=== PATIENT | female | born 1955 | race Caucasian/White ===

== ENCOUNTER 2020-08-07 12:12 | Outpatient (REF) | payer MEDICARE, MEDICAID, SELFPAY ==
--- NOTE | 2020-08-07 12:21 | MM_ITS ---
EXAMINATION: MM SCREENING DIGITAL BREAST TOMOSYNTHESIS, BILATERAL CLINICAL INFORMATION: Screening. Asymptomatic. Family history of breast cancer, Mother age 82. Prior outside mammography currently unavailable, facility indeterminate. The lifetime risk of breast cancer based on the Tyrer-Cuzick Model is 10%. COMPARISON: None. TECHNIQUE: Digital breast tomosynthesis is performed in both the craniocaudal and mediolateral oblique views along with computer-aided detection (CAD). Synthesized 2D images are generated from the tomosynthesis. Additional left MLO view is provided. FINDINGS: There are scattered areas of fibroglandular density (ACR BI-RADS breast composition Category b). There are no significant masses, abnormal calcifications, or other abnormalities. There are dermal calcifications overlying the bilateral posterior medial breasts. The axilla and skin contours are unremarkable. MM/MM tomosynthesis screening BI IMPRESSION: No mammographic evidence of malignancy. ASSESSMENT: BI-RADS 2: Benign RECOMMENDATION: Routine annual mammography screening. This patient's information was entered into a reminder system with a target due date for their next mammogram.
== END 2020-08-07 12:13 | disposition home or self-care (01) ==
LOC: HO.MAMMO 12:12
PROVIDERS: PCP Family Medicine; Visit Provider Family Medicine
DX: Z12.31 Encounter for screening mammogram for malignant neoplasm of breast (principal)
CPT/HCPCS: 77063; 77067

== ENCOUNTER 2020-08-09 10:40 | Outpatient (REF) | payer MEDICARE, MEDICAID, SELFPAY ==
--- NOTE | 2020-08-09 | MM_ITS ---
EXAMINATION: BONE DENSITOMETRY CLINICAL INDICATION: Asymptomatic menopausal state. COMPARISON: This is the patient's baseline examination. TECHNIQUE: Using a Expanite DXA System (software version: 13.1) manufactured by [employer], dual-energy x-ray absorptiometry was performed of the lumbar spine and left hip. The images are of good technical quality. Summary results are attached. FINDINGS: AP SPINE L1-L4: BMD 1.089 g/cm2, Z-score 0.5, T-score -0.8, normal. LEFT FEMUR, NECK: BMD 0.931 g/cm2, Z-score 0.5, T-score -0.8, normal. LEFT FEMUR, TOTAL: BMD 1.091 g/cm2, Z-score 1.6, T-score 0.7, normal. IDENTIFIED RISK FACTORS: Menopause. HISTORY OF FRACTURE: None listed. MEDICATIONS: Calcium supplements or multivitamin, vitamin D. MM/XR DEXA axial skeleton IMPRESSION: 1. DIAGNOSIS: Normal bone density based on the lowest T-score value of -0.8 in the femoral neck and lumbar spine applying World Health Organization criteria. 2. 10-YEAR FRACTURE RISK PREDICTION, FRAX: Major osteoporotic fracture (clinical spine, forearm, hip or shoulder) 7.5%. Hip fracture 0.5%. 3. Treatment Recommendations: NOF guidelines recommend consideration for treatment in postmenopausal women and men age 50 and older presenting with the following: -A hip or vertebral (clinical or morphometric) fracture. -T-score less than or equal to -2.5 at the femoral neck or spine after appropriate evaluation to exclude secondary causes. -Low bone mass at the hip or spine and a 10-year fracture probability by FRAX of greater than or equal to 3% for hip fracture or greater than or equal to 20% for major osteoporotic fracture based on the [place] adapted WHO algorithm. 4. Other Recommendations: All treatment decisions require clinical judgment and consideration of individual patient factors, including patient preferences, comorbidities, previous drug use, risk factors not captured in the FRAX model (e.g. frailty, falls, vitamin D deficiency, increased bone turnover, interval significant decline in bone density) and possible under or overestimation of fracture risk by FRAX. FUTURE SCAN RECOMMENDATION: People with diagnosed cases of osteoporosis or at high risk for fracture should have regular bone mineral density tests. For patients eligible for Medicare, routine testing is allowed once every 2 years. The testing frequency can be increased to one year for patients who have rapidly progressing disease, those who are receiving or discontinuing medical therapy to restore bone mass, or have additional risk factors.
== END 2020-08-09 10:41 | disposition home or self-care (01) ==
LOC: HO.MAMMO 10:40
PROVIDERS: PCP Family Medicine; Visit Provider Family Medicine
DX: Z13.820 Encounter for screening for osteoporosis (principal); Z78.0 Asymptomatic menopausal state
CPT/HCPCS: 77080

== ENCOUNTER 2022-03-09 10:54 | Outpatient (REF) | payer MEDICARE, SELFPAY ==
[2022-03-09 14:13] LABS: MANUAL DIFF FLAG NO
[2022-03-09 14:17] LABS: Basophils Percent Auto 0.9 % (0-2); Eosinophils Absolute Auto 0.1 X10*3/uL (0.0-0.4); Eosinophils Percent Auto 2.1 % (0-4); Hematocrit 36.8 % (37.0-47.0); Imm Gran Abs Auto 0.01 X10*3/uL (0.00-0.03); Imm Gran Pct Auto 0.3 % (0.0-0.4); Lymphocytes Absolute Auto 1.3 X10*3/uL (1.2-4.9); Lymphocytes Percent Auto 39.1 % (20-40); Mean Corpuscular HGB Conc 32.6 g/dl (31.0-35.0); Mean Corpuscular Hemoglobin 30.1 pg (27.0-33.0); Mean Corpuscular Volume 92.2 fL (80.0-98.0); Mean Platelet Volume 11.6 fL (9.4-12.3); Monocytes Absolute Auto 0.4 X10*3/uL (0.1-1.2); Monocytes Percent Auto 12.6 % (2-11); Neutrophils Absolute Auto 1.5 x10*3/uL (2.0-8.3); Platelet Count 194 X10*3/uL (160-400); Red Blood Count 3.99 X10*6/uL (4.20-5.50); Red Cell Distribution Width 13.1 % (11.0-16.0); White Blood Count 3.4 X10*3/uL (4.8-10.8)
[2022-03-09 14:28] LABS: Alanine Aminotransferase 22 U/L (0-31); Albumin Level 4.6 g/dL (3.5-5.0); Alkaline Phosphatase 66 U/L (39-117); Anion Gap 12 (12-20); Aspartate Amino Transferase 22 U/L (5-31); Bilirubin Total 0.6 mg/dL (0.0-1.0); Blood Urea Nitrogen 23 mg/dL (9-16); Calcium 9.8 mg/dL (8.4-10.2); Carbon Dioxide 27 mmol/L (22-29); Chloride 104 mmol/L (96-108); Cholesterol 285 mg/dL; Estimated Glomerular Filt Rate > 60; Glucose Fasting 111 mg/dL (60-99); HDL Cholesterol 56 mg/dL; LDL Cholesterol Calculated 201 mg/dl; Potassium 4.7 mmol/L (3.3-5.1); Sodium 138 mmol/L (135-145); Total Protein 7.5 g/dL (6.5-8.0); Triglycerides 142 mg/dL
[2022-03-09 14:30] LABS: Estimated Average Glucose 120 mg/dL; Hemoglobin A1c % 5.8 %
[2022-03-09 14:49] LABS: TSH reflex Free T4 0.89 uIU/mL (0.32-4.0)
[2022-03-09 14:57] LABS: Appearance Urine CLEAR; Color Urine YELLOW; Glucose Urine UA NEG (NEG); Leukocyte Esterase Urine NEG (NEG); Nitrite Urine NEG (NEG); Urine Blood 1+ (NEG); Urine Ketones NEG (NEG); Urine Protein NEG (NEG-TRACE)
[2022-03-09 15:16] LABS: RBC Urine 0-2 /HPF (0); Squamous Epithelial Cell Urine TRACE /LPF; WBC Urine 0 /HPF (0-4)
== END 2022-03-09 10:55 | disposition home or self-care (01) ==
LOC: HO.WFDLDS 10:54
PROVIDERS: Visit Provider Family Medicine
DX: Z00.00 Encounter for general adult medical examination without abnormal findings (principal); R73.01 Impaired fasting glucose
CPT/HCPCS: 36415; 80053; 80061; 81001; 81003; 83036; 84443; 85025

== ENCOUNTER 2022-06-02 14:40 | Outpatient (REF) | payer MEDICARE, SELFPAY ==
--- NOTE | ~2022-06-02 | XR_ITS ---
EXAMINATION: XR ABDOMEN KUB CLINICAL INDICATION: Abdominal pain. COMPARISON: None TECHNIQUE: AP view of the abdomen. FINDINGS: The bowel gas pattern is normal, with no evidence of ileus or obstruction. There is a mild stool burden. No urinary calculus is seen. There are multiple round, lucent centered calcifications seen within the bilateral flank and upper buttock regions, likely soft tissue granulomas. These are of doubtful clinical significance. No acute osseous abnormality is seen. XR/XR KUB IMPRESSION: There is a mild stool burden. No obstruction or ileus is seen. No free intraperitoneal air is noted.
== END 2022-06-02 14:41 | disposition home or self-care (01) ==
LOC: HO.XRAY 14:40
PROVIDERS: PCP Family Medicine; Visit Provider Family Medicine
DX: R10.9 Unspecified abdominal pain (principal)
CPT/HCPCS: 74018

== ENCOUNTER 2022-06-03 09:27 | Outpatient (REF) | payer MEDICARE, SELFPAY ==
[2022-06-03 11:07] LABS: MANUAL DIFF FLAG NO
[2022-06-03 11:31] LABS: Appearance Urine Clear; Color Urine Yellow; Eosinophils Absolute Auto 0.1 X10*3/uL (0.0-0.4); Eosinophils Percent Auto 3.1 % (0-4); Glucose Urine UA Negative (Negative); Hematocrit 35.4 % (37.0-47.0); Hemoglobin 11.6 g/dl (12.0-16.0); Imm Gran Abs Auto 0.01 X10*3/uL (0.00-0.03); Imm Gran Pct Auto 0.3 % (0.0-0.4); Leukocyte Esterase Urine Negative (Negative); Lymphocytes Absolute Auto 1.2 X10*3/uL (1.2-4.9); Lymphocytes Percent Auto 41.8 % (20-40); Mean Corpuscular HGB Conc 32.8 g/dl (31.0-35.0); Mean Corpuscular Hemoglobin 29.6 pg (27.0-33.0); Mean Corpuscular Volume 90.3 fL (80.0-98.0); Mean Platelet Volume 11.2 fL (9.4-12.3); Monocytes Absolute Auto 0.5 X10*3/uL (0.1-1.2); Monocytes Percent Auto 15.8 % (2-11); Neutrophils Absolute Auto 1.1 x10*3/uL (2.0-8.3); Nitrite Urine Negative (Negative); Platelet Count 191 X10*3/uL (160-400); Red Blood Count 3.92 X10*6/uL (4.20-5.50); Red Cell Distribution Width 12.7 % (11.0-16.0); Specific Gravity - Urine 1.015 (1.005-1.025); Urine Blood Small (1+) (Negative); Urine Ketones Trace mg/dL (Negative); Urine Protein Negative (Neg-Trace); White Blood Count 2.9 X10*3/uL (4.8-10.8)
[2022-06-03 11:46] LABS: Bacteria Urine None Seen (None Seen); Hyaline Casts Urine 0-2 /LPF (0-2); Squamous Epithelial Cell Urine 0-2 /HPF (0-2); WBC Urine 0-5 /HPF (0-5)
[2022-06-03 11:57] LABS: Alanine Aminotransferase 16 U/L (0-31); Albumin Level 4.5 g/dL (3.5-5.0); Alkaline Phosphatase 64 U/L (39-117); Anion Gap 16 (12-20); Aspartate Amino Transferase 16 U/L (5-31); Bilirubin Total 0.4 mg/dL (0.0-1.0); Blood Urea Nitrogen 17 mg/dL (9-16); Calcium 9.6 mg/dL (8.4-10.2); Carbon Dioxide 25 mmol/L (22-29); Chloride 105 mmol/L (96-108); Estimated Glomerular Filt Rate > 60; Glucose Fasting 106 mg/dL (60-99); Potassium 4.6 mmol/L (3.3-5.1); Sodium 141 mmol/L (135-145); Total Protein 7.4 g/dL (6.5-8.0)
== END 2022-06-03 09:28 | disposition home or self-care (01) ==
LOC: HO.WFDLDS 09:27
PROVIDERS: Visit Provider Family Medicine
DX: Z00.00 Encounter for general adult medical examination without abnormal findings (principal); R10.9 Unspecified abdominal pain
CPT/HCPCS: 36415; 80053; 81001; 85025

== ENCOUNTER 2022-07-09 12:27 | Outpatient (REF) | payer MEDICARE, SELFPAY ==
[2022-07-09 15:02] LABS: MANUAL DIFF FLAG NO
[2022-07-09 15:09] LABS: Basophils Percent Auto 0.6 % (0-2); Eosinophils Absolute Auto 0.1 X10*3/uL (0.0-0.4); Eosinophils Percent Auto 1.7 % (0-4); Hematocrit 36.2 % (37.0-47.0); Imm Gran Abs Auto 0.01 X10*3/uL (0.00-0.03); Imm Gran Pct Auto 0.3 % (0.0-0.4); Lymphocytes Absolute Auto 1.3 X10*3/uL (1.2-4.9); Lymphocytes Percent Auto 38.8 % (20-40); Mean Corpuscular HGB Conc 33.1 g/dl (31.0-35.0); Mean Corpuscular Hemoglobin 30.2 pg (27.0-33.0); Mean Platelet Volume 11.8 fL (9.4-12.3); Monocytes Absolute Auto 0.4 X10*3/uL (0.1-1.2); Neutrophils Absolute Auto 1.6 x10*3/uL (2.0-8.3); Neutrophils Percent Auto 46.6 % (45-73); Platelet Count 179 X10*3/uL (160-400); Red Blood Count 3.98 X10*6/uL (4.20-5.50); Red Cell Distribution Width 13.2 % (11.0-16.0); White Blood Count 3.4 X10*3/uL (4.8-10.8)
[2022-07-09 15:18] LABS: Estimated Average Glucose 123 mg/dL; Hemoglobin A1c % 5.9 %
[2022-07-09 15:28] LABS: Alanine Aminotransferase 20 U/L (0-31); Albumin Level 4.9 g/dL (3.5-5.0); Alkaline Phosphatase 72 U/L (39-117); Anion Gap 15 (12-20); Aspartate Amino Transferase 20 U/L (5-31); Bilirubin Total 0.3 mg/dL (0.0-1.0); Blood Urea Nitrogen 18 mg/dL (9-16); Calcium 9.7 mg/dL (8.4-10.2); Carbon Dioxide 24 mmol/L (22-29); Chloride 106 mmol/L (96-108); Cholesterol 229 mg/dL; Estimated Glomerular Filt Rate > 60; Glucose Fasting 112 mg/dL (60-99); HDL Cholesterol 56 mg/dL; Iron 77 mcg/dL (30-160); LDL Cholesterol Calculated 151 mg/dl; Percent Iron Saturation 21 % (15-50); Potassium 4.4 mmol/L (3.3-5.1); Sodium 141 mmol/L (135-145); Total Iron Binding Capacity 370 mcg/dL (228-428); Total Protein 7.6 g/dL (6.5-8.0); Triglycerides 113 mg/dL; Unsaturated Iron Binding 293 ug/dL
[2022-07-09 15:50] LABS: TSH reflex Free T4 1.03 uIU/mL (0.32-4.0)
[2022-07-09 15:53] LABS: Folate 18.1 ng/mL (> or = 4.0); Vitamin B12 542 pg/mL (200-900)
== END 2022-07-09 12:28 | disposition home or self-care (01) ==
LOC: HO.WFDLDS 12:27
PROVIDERS: Visit Provider Family Medicine
DX: Z00.00 Encounter for general adult medical examination without abnormal findings (principal); R73.01 Impaired fasting glucose; E53.8 Deficiency of other specified B group vitamins; D64.9 Anemia, unspecified
CPT/HCPCS: 36415; 80053; 80061; 82607; 82746; 83036; 83540; 84443; 85025

== ENCOUNTER 2022-08-11 13:10 | Outpatient (REF) | payer MEDICARE, SELFPAY ==
--- NOTE | ~2022-08-11 | MM_ITS ---
EXAMINATION: MM SCREENING DIGITAL BREAST TOMOSYNTHESIS, BILATERAL CLINICAL INFORMATION: Screening. Asymptomatic. The lifetime risk of breast cancer based on the Tyrer-Cuzick Model is 4%. COMPARISON: Mammography: 08/07/2020 (new baseline) TECHNIQUE: Digital breast tomosynthesis is performed in both the craniocaudal and mediolateral oblique views along with computer-aided detection (CAD). Synthesized 2D images are generated from the tomosynthesis. FINDINGS: There are scattered areas of fibroglandular density (ACR BI-RADS breast composition Category b). There are no significant masses, abnormal calcifications, or other abnormalities. Parenchymal pattern is similar to prior studies. No architectural abnormality. The axilla and skin contours are unremarkable. No significant changes. MM/MM tomosynthesis screening BI IMPRESSION: No mammographic evidence of malignancy. ASSESSMENT: BI-RADS 1: Negative RECOMMENDATION: Routine annual mammography screening. This patient's information was entered into a reminder system with a target due date for their next mammogram.
== END 2022-08-11 13:11 | disposition home or self-care (01) ==
LOC: HO.MAMMO 13:10
PROVIDERS: PCP Family Medicine; Visit Provider Family Medicine
DX: Z12.31 Encounter for screening mammogram for malignant neoplasm of breast (principal)
CPT/HCPCS: 77063; 77067

== ENCOUNTER 2023-05-21 16:33 | Outpatient (AMB) | payer MEDICARE, SELFPAY ==
[2023-05-21 16:36] VITALS: BP 132/76; PULSE 74; TEMP 36.6; O2SAT 97; BMI 31.8
--- NOTE | 2023-05-21 16:36 | MHC.PC.OV ---
Vital Signs 05/21/23 16:36 Height 5 ft 1.5 in Weight 171 lb BMI 31.8 BP 132/76 Blood Pressure Location Lt brachial Position Sitting Pulse 74 Pulse Source Pulse Oximeter Temp 97.9 F Temp Source Oral Pulse Oximetry (%) 97 Oxygen Delivery Method Room Air Intake Visit Reasons: Left ear pain Intake Note: Patient is here with left ear pain for months, getting worse and worse. She states that there is a buzzing sound in her ears, and has a cracking sound in her voice when that happens. Allergies flu vaccine Allergy (Unknown, Uncoded 05/21/23 16:39) Hives Tobacco use date assessed: 05/21/23 Fall risk assessment: No Falls in past year Last assessed Fall Risk: 05/21/23 Dental Screening Dental Screen Date: 05/21/23 Did you have a dental visit in the last 12 months?: Yes Did you have a dental problem in the last 6 months where you did not have access to dental care?: No Was dental information given to patient?: Patient has dentist HPI Left ear pain HPI Details 67 y/o female presents today with complaints of L ear pain. She reports intermittent symptoms for months and reports a buzzing sound in her ears. She also reports she could hear a cracking sound in her voice whenever buzzing happens. Pt notes she does see an ENT specialist and they had mentioned polyps to her that could be causing drainage issues with her ear. They had last seen them more than 3 years ago. [facility] Medical History Depression GERD (gastroesophageal reflux disease) HLD (hyperlipidemia) Hypertension Low back pain Macular degeneration Right sciatic nerve pain Surgical History History of back surgery History of bladder surgery Social History Housing: House Alcohol intake: never Patient Tobacco Use Status: Never used Tobacco e-Cigarette/Vaping Use: Never Used Second Hand Smoke Exposure: No service: No Current occupational status: retired Current occupational exposures/hazards: No Cognitive needs: Yes (cane/walker) Hearing needs: No Vision needs: Yes (glasses) Questionnaire Thrive Questionnaire Date Thrive assessed: 03/09/22 TIFFANIE-7 AMB Questionnaire TIFFANIE-7 Date TIFFANIE - 7 assessed: 03/09/22 Source: Developed by Drs. Saad Ballard, Carolina Portillo, Aly Zee and colleagues, with an educational susan from [employer]. Review of Systems Const Denies chills, Denies fatigue, Denies fever(s), Denies headache(s) and Denies weakness ENT Denies dizziness and Denies headache(s) Card Denies dyspnea Resp Denies cough, Denies dyspnea, Denies wheezing and Denies other (shortness of breath) Musc Denies numbness and Denies tingling Neuro Denies dizziness, Denies headache(s), Denies numbness, Denies tingling and Denies weakness Psych Denies anxiety and Denies depression Endo Denies fatigue Aller/Immun Denies wheezing Physical exam (Primary Care) Vital Signs: Last Vital Signs Temp 97.9 F 05/21/23 16:36 Pulse 74 05/21/23 16:36 BP 132/76 05/21/23 16:36 Pulse Ox 97 05/21/23 16:36 Oxygen Delivery Method Room Air 05/21/23 16:36 BMI result Body Mass Index 31.8 Tobacco/Smoking Status: Tobacco use Status Tobacco use date assessed 05/21/23 05/21/23 16:41 Patient Tobacco Use Status Never used Tobacco 05/21/23 16:41 e-Cigarette/Vaping Use Never Used 05/21/23 16:41 Thrive Assessment: Date of Thrive Assessment Date Thrive assessed 03/09/22 05/21/23 16:41 Const General: well developed; No acute distress Nutritional Appearance: well nourished Orientation/consciousness: patient oriented x3 HENMT Head: Yes normocephalic and Yes atraumatic Eyes General: appearance normal, both eyes and all related structures Pupils: Equal, round and reactive pupils present EOM: EOMs intact bilaterally Resp Effort & Inspection: normal respiratory effort Neuro General: patient oriented x3 and gait normal Cranial nerves: Yes Equal, round and reactive pupils present Psych Affect: normal affect Assessment and Plan Assessment & Plan (1) Discomfort of left ear: Code(s): H92.02 - Otalgia, left ear Plan: She has and uninfected left ear effusion and also has some left nasal congestion with a left nasal polyp. Has seen ENT he a few years ago but not more recently. Will have her try using nasal steroids again and will refer her back to ENT (2) Tinnitus: Code(s): H93.19 - Tinnitus, unspecified ear Plan: Possibly due to the above so I suggested she mention this to her ENT We also discussed that is unfortunately the case that tinnitus is often not treatable. However she may find some relief with white noise at bedtime to help her sleep. (3) Chronic serous otitis media, left ear: Code(s): H65.22 - Chronic serous otitis media, left ear Plan: As above, trial nasal steroid and she is referred to ENT Orders: Referrals Ear/Nose/Throat Referral H65.22 - Chronic serous otitis media, left ear, J33.9 - Nasal polyp, unspecified Medications: Changed From melatonin 3 mg PO BEDTIME 30 days PRN 20 caps 2RF insomnia To melatonin 10 mg (2 x 5 mg) PO BEDTIME PRN 60 caps 2RF insomnia 30 days From fluticasone propionate 50 mcg/actuation intranasal To fluticasone propionate 50 mcg/actuation 2 sprays intranasal BID 16 grams 2RF 30 days Coding Level of Care Code Est Pt Level 3 (57250) Diagnoses Discomfort of left ear H92.02 Tinnitus H93.19 Chronic serous otitis media, left ear H65.22
== END 2023-05-21 17:04 | disposition home or self-care (01) ==
PROVIDERS: PCP Family Medicine; Visit Provider Family Medicine
DX: H92.02 Otalgia, left ear (principal); H93.19 Tinnitus, unspecified ear; H65.22 Chronic serous otitis media, left ear
CPT/HCPCS: 99213

== ENCOUNTER 2023-06-18 11:39 | Outpatient (AMB) | payer MEDICARE, SELFPAY ==
[2023-06-18 11:44] VITALS: BP 130/76; PULSE 86; O2SAT 96; BMI 30.7
--- NOTE | 2023-06-18 11:44 | A.OFFPC_ITS ---
Vital Signs 06/18/23 11:44 Height 5 ft 1.5 in Weight 165 lb BMI 30.7 BP 130/76 Blood Pressure Location Lt brachial Pulse 86 Pulse Source Pulse Oximeter Pulse Oximetry (%) 96 Oxygen Delivery Method Room Air Intake Visit Reasons: arthritis of hands Intake Note: Patient is here for arthritis in her hands, and concern of strep throat. She complains of sore throat for 3-4 days. Allergies flu vaccine Allergy (Unknown, Uncoded 06/18/23 11:46) Hives Tobacco use date assessed: 06/18/23 Fall risk assessment: No Falls in past year Last assessed Fall Risk: 06/18/23 Dental Screening Dental Screen Date: 06/18/23 Did you have a dental visit in the last 12 months?: Yes Did you have a dental problem in the last 6 months where you did not have access to dental care?: No Was dental information given to patient?: Patient has dentist HPI arthritis of hands HPI Details 67 y/o female presents today with compla ints of arthritis in her hands and concern of strep throat. She has complaints of a sore throat x3-4 days. She does have a hx of GERD and notes she does have reflux at night. She has been using naproxen for her hands. [facility] Medical History Macular degeneration Low back pain Right sciatic nerve pain GERD (gastroesophageal reflux disease) Depression HLD (hyperlipidemia) Hypertension Surgical History History of bladder surgery History of back surgery Social History Housing: House Alcohol intake: never Patient Tobacco Use Status: Never used Tobacco e-Cigarette/Vaping Use: Never Used Second Hand Smoke Exposure: No service: No Current occupational status: retired Current occupational exposures/hazards: No Cognitive needs: Yes (cane/walker) Hearing needs: No Vision needs: Yes (glasses) Questionnaire Thrive Questionnaire Date Thrive assessed: 03/09/22 TIFFANIE-7 AMB Questionnaire TIFFANIE-7 Date TIFFANIE - 7 assessed: 03/09/22 Source: Developed by Drs. Saad Ballard, Carolina Portillo, Aly Zee and colleagues, with an educational susan from [employer]. Review of Systems Const Denies chills, Denies fatigue, Denies fever(s), Denies headache(s) and Denies weakness ENT Denies dizziness, Denies headache(s) and Reports sore throat Card Denies dyspnea Resp Denies cough, Denies dyspnea, Denies wheezing and Denies other (shortness of breath) Musc Denies numbness and Denies tingling Neuro Denies dizziness, Denies headache(s), Denies numbness, Denies tingling and Denies weakness Psych Denies anxiety and Denies depression Endo Denies fatigue Aller/Immun Denies wheezing Physical exam (Primary Care) Vital Signs: Last Vital Signs Pulse 86 06/18/23 11:44 BP 130/76 06/18/23 11:44 Pulse Ox 96 06/18/23 11:44 Oxygen Delivery Method Room Air 06/18/23 11:44 BMI result Body Mass Index 30.7 Tobacco/Smoking Status: Tobacco use Status Tobacco use date assessed 06/18/23 06/18/23 11:49 Patient Tobacco Use Status Never used Tobacco 06/18/23 11:49 e-Cigarette/Vaping Use Never Used 06/18/23 11:49 Thrive Assessment: Date of Thrive Assessment Date Thrive assessed 03/09/22 06/18/23 11:49 Const General: well developed; No acute distress Nutritional Appearance: well nourished Orientation/consciousness: patient oriented x3 HENMT Head: Yes normocephalic and Yes atraumatic Eyes General: appearance normal, both eyes and all related structures Pupils: Equal, round and reactive pupils present EOM: EOMs intact bilaterally Resp Effort & Inspection: normal respiratory effort Neuro General: patient oriented x3 and gait normal Cranial nerves: Yes Equal, round and reactive pupils present Psych Affect: normal affect Results AMB Rapid Strep AMB Rapid Strep Negative Last Edit by Carla Mccord CMA on 06/18/23 12:17 Assessment and Plan Assessment & Plan (1) Sore throat: Code(s): J02.9 - Acute pharyngitis, unspecified Plan: Appears to be primarily irritant and patient notes that she has some reflux at night Trial omeprazole bilateral hand pain and (2) Arthritis of hand: Code(s): M19.049 - Primary osteoarthritis, unspecified hand Plan: Bilateral hand pain and swelling with deformities at dip joints Likely osteoarthritis Check labs and x-rays She would like a referral to Rheumatology She can continue using naproxen Can also use some Aspercreme with lidocaine She has been using lidocaine patches which she cuts into strips as Band-Aids on her fingers. Can continue using lidocaine patches. (3) GERD (gastroesophageal reflux disease): Code(s): K21.9 - Gastro-esophageal reflux disease without esophagitis Plan: Trial omeprazole Orders: Orders AMB Rapid Strep Screen Today J02.9 - Acute pharyngitis, unspecified XR hand RT min 3V Today M19.049 - Primary osteoarthritis, unspecified hand, M79.641 - Pain in right hand Complete Blood Count Auto Diff Today M19.049 - Primary osteoarthritis, unspecified hand, Z00.00 - Encounter for general adult medical examination without abnormal findings XR hand LT min 3V Today M79.642 - Pain in left hand Comprehensive Met. Panel Today M19.049 - Primary osteoarthritis, unspecified hand Erythrocyte Sedimentation Rate Today M19.049 - Primary osteoarthritis, unspecified hand CRP High Sensitivity Today M19.049 - Primary osteoarthritis, unspecified hand Referrals Rheumatology Referral M19.049 - Primary osteoarthritis, unspecified hand Medications: New omeprazole 20 mg PO DAILY 30 days 30 caps 0RF Refilled lidocaine 5% (Lidoderm) leave on most painful area for up to 12 hrs 1 patch topical DAILY 30 ea 3RF 30 days M19.049 - Primary osteoarthritis, unspecified hand Coding Level of Care Code Est Pt Level 3 (27601) Diagnoses Sore throat J02.9 Arthritis of hand M19.049 GERD (gastroesophageal reflux disease) K21.9
== END 2023-06-18 12:34 | disposition home or self-care (01) ==
PROVIDERS: PCP Family Medicine; Visit Provider Family Medicine
DX: J02.9 Acute pharyngitis, unspecified (principal); M19.049 Primary osteoarthritis, unspecified hand; K21.9 Gastro-esophageal reflux disease without esophagitis
CPT/HCPCS: 87880; 99213

== ENCOUNTER 2023-06-18 12:37 | Outpatient (REF) | payer MEDICARE, SELFPAY ==
[2023-06-18 14:27] LABS: MANUAL DIFF FLAG NO
[2023-06-18 14:38] LABS: Basophils Percent Auto 0.6 % (0-2); Eosinophils Absolute Auto 0.1 X10*3/uL (0.0-0.4); Eosinophils Percent Auto 1.6 % (0-4); Hematocrit 34.9 % (37.0-47.0); Hemoglobin 11.5 g/dl (12.0-16.0); Imm Gran Abs Auto 0.01 X10*3/uL (0.00-0.03); Imm Gran Pct Auto 0.2 % (0.0-0.4); Lymphocytes Absolute Auto 1.3 X10*3/uL (1.2-4.9); Lymphocytes Percent Auto 26.6 % (20-40); Mean Corpuscular Hemoglobin 29.9 pg (27.0-33.0); Mean Corpuscular Volume 90.6 fL (80.0-98.0); Mean Platelet Volume 11.4 fL (9.4-12.3); Monocytes Absolute Auto 0.7 X10*3/uL (0.1-1.2); Monocytes Percent Auto 14.2 % (2-11); Neutrophils Absolute Auto 2.8 x10*3/uL (2.0-8.3); Neutrophils Percent Auto 56.8 % (45-73); Platelet Count 189 X10*3/uL (160-400); Red Blood Count 3.85 X10*6/uL (4.20-5.50); Red Cell Distribution Width 13.6 % (11.0-16.0); White Blood Count 4.9 X10*3/uL (4.8-10.8)
[2023-06-18 14:45] LABS: Estimated Average Glucose 126 mg/dL; Hemoglobin A1C 112.9931 umol/L
[2023-06-18 15:12] LABS: Alanine Aminotransferase 28 U/L (0-31); Albumin Level 4.7 g/dL (3.5-5.0); Alkaline Phosphatase 74 U/L (39-117); Anion Gap 14 (12-20); Aspartate Amino Transferase 23 U/L (5-31); Bilirubin Total 0.4 mg/dL (0.0-1.0); Blood Urea Nitrogen 15 mg/dL (9-16); Calcium 10.1 mg/dL (8.4-10.2); Carbon Dioxide 23 mmol/L (22-29); Chloride 106 mmol/L (96-108); Cholesterol 250 mg/dL (<200); Estimated Glomerular Filt Rate > 60; Glucose Random 105 mg/dL (60-115); HDL Cholesterol 49 mg/dL (>40); LDL Cholesterol Calculated 139 mg/dL (<100); Potassium 4.3 mmol/L (3.3-5.1); Sodium 139 mmol/L (135-145); Total Protein 7.9 g/dL (6.5-8.0); Triglycerides 311 mg/dL (<150)
[2023-06-18 15:29] LABS: Erythrocyte Sedimentation Rate 34 MM/HR (0-20)
[2023-06-23 09:54] LABS: CRP High Sensitivity >10.0 mg/L
== END 2023-06-18 12:38 | disposition home or self-care (01) ==
LOC: HO.WFDLDS 12:37
PROVIDERS: Visit Provider Family Medicine
DX: Z00.00 Encounter for general adult medical examination without abnormal findings (principal); R73.03 Prediabetes; E78.5 Hyperlipidemia, unspecified; I10 Essential (primary) hypertension; M19.049 Primary osteoarthritis, unspecified hand; M79.641 Pain in right hand; M79.642 Pain in left hand; J02.9 Acute pharyngitis, unspecified
CPT/HCPCS: 36415; 80053; 80061; 83036; 84443; 85025; 85652; 86141

== ENCOUNTER 2023-06-18 13:42 | Outpatient (REF) | payer MEDICARE, SELFPAY ==
--- NOTE | ~2023-06-18 | XR_ITS ---
EXAMINATION: XR HAND, RIGHT XR HAND, LEFT CLINICAL INFORMATION: Pain COMPARISON: Right and left wrist radiograph from 10/27/2007 TECHNIQUE: 3 views of each hand FINDINGS: RIGHT: No acute visible fracture or dislocation. Moderate multi joint arthritic changes greatest along the second through fifth distal interphalangeal joints with joint space narrowing, subchondral cystic changes, and periarticular osteophyte formation. Joint spaces and alignment are otherwise maintained. Soft tissues are unremarkable. LEFT: No acute visible fracture or dislocation. Moderate multi joint arthritic changes greatest along the third and fifth distal interphalangeal joints with joint space narrowing, subchondral cystic changes, and periarticular osteophyte formation. Joint spaces and alignment are otherwise maintained. Soft tissues are unremarkable. XR/XR hand LT min 3V IMPRESSION: 1. No acute visible fracture or dislocation. 2. Moderate multi joint arthritic changes bilaterally greatest along the bilateral distal interphalangeal joints.
--- NOTE | ~2023-06-18 | XR_ITS ---
EXAMINATION: XR HAND, RIGHT XR HAND, LEFT CLINICAL INFORMATION: Pain COMPARISON: Right and left wrist radiograph from 10/27/2007 TECHNIQUE: 3 views of each hand FINDINGS: RIGHT: No acute visible fracture or dislocation. Moderate multi joint arthritic changes greatest along the second through fifth distal interphalangeal joints with joint space narrowing, subchondral cystic changes, and periarticular osteophyte formation. Joint spaces and alignment are otherwise maintained. Soft tissues are unremarkable. LEFT: No acute visible fracture or dislocation. Moderate multi joint arthritic changes greatest along the third and fifth distal interphalangeal joints with joint space narrowing, subchondral cystic changes, and periarticular osteophyte formation. Joint spaces and alignment are otherwise maintained. Soft tissues are unremarkable. XR/XR hand RT min 3V IMPRESSION: 1. No acute visible fracture or dislocation. 2. Moderate multi joint arthritic changes bilaterally greatest along the bilateral distal interphalangeal joints.
== END 2023-06-18 13:43 | disposition home or self-care (01) ==
LOC: HO.XRAY 13:42
PROVIDERS: PCP Family Medicine; Visit Provider Family Medicine
DX: M19.049 Primary osteoarthritis, unspecified hand (principal); M79.641 Pain in right hand; M79.642 Pain in left hand
CPT/HCPCS: 73130

== ENCOUNTER 2023-08-12 10:46 | Outpatient (REF) | payer MEDICARE, SELFPAY ==
[2023-08-12 14:22] LABS: MANUAL DIFF FLAG NO
[2023-08-12 14:25] LABS: Basophils Percent Auto 1.2 % (0-2); Eosinophils Absolute Auto 0.1 X10*3/uL (0.0-0.4); Eosinophils Percent Auto 2.8 % (0-4); Hematocrit 36.1 % (37.0-47.0); Imm Gran Abs Auto 0.01 X10*3/uL (0.00-0.03); Imm Gran Pct Auto 0.3 % (0.0-0.4); Lymphocytes Absolute Auto 1.3 X10*3/uL (1.2-4.9); Lymphocytes Percent Auto 39.5 % (20-40); Mean Corpuscular HGB Conc 33.2 g/dl (31.0-35.0); Mean Corpuscular Hemoglobin 29.7 pg (27.0-33.0); Mean Corpuscular Volume 89.4 fL (80.0-98.0); Mean Platelet Volume 11.4 fL (9.4-12.3); Monocytes Absolute Auto 0.5 X10*3/uL (0.1-1.2); Monocytes Percent Auto 15.1 % (2-11); Neutrophils Absolute Auto 1.3 x10*3/uL (2.0-8.3); Neutrophils Percent Auto 41.1 % (45-73); Platelet Count 202 X10*3/uL (160-400); Red Blood Count 4.04 X10*6/uL (4.20-5.50); Red Cell Distribution Width 13.2 % (11.0-16.0); White Blood Count 3.2 X10*3/uL (4.8-10.8)
[2023-08-12 14:45] LABS: Alanine Aminotransferase 26 U/L (0-31); Albumin Level 4.6 g/dL (3.5-5.0); Alkaline Phosphatase 67 U/L (39-117); Anion Gap 13 (12-20); Aspartate Amino Transferase 23 U/L (5-31); Bilirubin Total 0.5 mg/dL (0.0-1.0); Blood Urea Nitrogen 16 mg/dL (9-16); Calcium 9.8 mg/dL (8.4-10.2); Carbon Dioxide 26 mmol/L (22-29); Chloride 106 mmol/L (96-108); Estimated Glomerular Filt Rate > 60; Glucose Fasting 115 mg/dL (60-99); Sodium 140 mmol/L (135-145); Total Protein 7.6 g/dL (6.5-8.0)
== END 2023-08-12 10:47 | disposition home or self-care (01) ==
LOC: HO.WFDLDS 10:46
PROVIDERS: Visit Provider Family Medicine
DX: Z00.00 Encounter for general adult medical examination without abnormal findings (principal); R73.03 Prediabetes; M54.9 Dorsalgia, unspecified
CPT/HCPCS: 36415; 80053; 85025

== ENCOUNTER 2023-08-23 10:10 | Outpatient (AMB) | payer MEDICARE, SELFPAY ==
--- NOTE | 2023-07-30 09:55 | A.OFFPC_ITS ---
Intake Visit Reasons: f/u CPE-labs Allergies flu vaccine Allergy (Unknown, Uncoded 07/30/23 09:56) Hives Tobacco use date assessed: 07/05/23 [facility] Medical History (Updated 06/18/23 @ 12:25 by Thien Banks) Macular degeneration Low back pain Right sciatic nerve pain GERD (gastroesophageal reflux disease) Depression HLD (hyperlipidemia) Hypertension Surgical History History of bladder surgery History of back surgery Social History Housing: House Alcohol intake: never Patient Tobacco Use Status: Never used Tobacco e-Cigarette/Vaping Use: Never Used Second Hand Smoke Exposure: No service: No Current occupational status: retired Current occupational exposures/hazards: No Cognitive needs: Yes (cane/walker) Hearing needs: No Vision needs: Yes (glasses) Questionnaire Thrive Questionnaire Date Thrive assessed: 03/09/22 TIFFANIE-7 AMB Questionnaire TIFFANIE-7 Date TIFFANIE - 7 assessed: 07/05/23 Source: Developed by Drs. Saad Ballard, Carolina Portillo, Aly Zee and colleagues, with an educational susan from [employer]. Physical exam (Primary Care) Tobacco/Smoking Status: Tobacco use Status Tobacco use date assessed 07/05/23 07/05/23 16:12 Patient Tobacco Use Status Never used Tobacco 07/05/23 16:07 e-Cigarette/Vaping Use Never Used 07/05/23 16:07 Thrive Assessment: Date of Thrive Assessment Date Thrive assessed 03/09/22 07/05/23 16:07 Telehealth Telehealth Location of provider rendering services: practice address Location of patient: address on file Patient Identification confirmed using: Name, : Yes Telehealth method: voice only Patient verbally consented to treatment: Yes Patient verbally consented to billing insurance company: Yes Patient informed of any privacy concerns related to visit: Yes Coding
--- NOTE | 2023-08-23 10:07 | MHC.PC.OV ---
Intake Visit Reasons: f/u CPE-labs Intake Note: Patient is following up for labs and has been informed the provider is running late this morning, Patient has another appointment at 11AM. If the patient is unavailable between 11 and 11:30, she asks the provider try to call again. Skiver Machine Required: No Allergies flu vaccine Allergy (Unknown, Uncoded 08/23/23 10:11) Hives Tobacco use date assessed: 06/18/23 HPI f/u CPE-labs HPI Details 67 y/o female presents to f/u CPE-labs via telemedicine. Labs were drawn 08/12/23. Reviewed labs with pt. Low WBC at 3.2. Mild anemia. Elevated fasting glucose of 115. Last A1c 06/18/23 6.0%. Liver enzymes are fine. Lipid panel drawn 06/18/23. Triglycerides 311. TC 250. LDL 139. HDL 49. She is on artovastatin 40mg daily. [facility] Medical History (Updated 06/18/23 @ 12:25 by Thien Banks) Macular degeneration Low back pain Right sciatic nerve pain GERD (gastroesophageal reflux disease) Depression HLD (hyperlipidemia) Hypertension Surgical History History of bladder surgery History of back surgery Housing: House Alcohol intake: never Patient Tobacco Use Status: Never used Tobacco e-Cigarette/Vaping Use: Never Used Second Hand Smoke Exposure: No service: No Current occupational status: retired Current occupational exposures/hazards: No Cognitive needs: Yes (cane/walker) Hearing needs: No Vision needs: Yes (glasses) Questionnaire Thrive Questionnaire Date Thrive assessed: 03/09/22 TIFFANIE-7 AMB Questionnaire TIFFANIE-7 Date TIFFANIE - 7 assessed: 03/09/22 Source: Developed by Drs. Saad Ballard, Carolina Portillo, Aly Zee and colleagues, with an educational susan from [employer]. Review of Systems Const Denies chills, Denies fatigue, Denies fever(s), Denies headache(s) and Denies weakness ENT Denies dizziness and Denies headache(s) Card Denies dyspnea Resp Denies cough, Denies dyspnea, Denies wheezing and Denies other (shortness of breath) Musc Denies numbness and Denies tingling Neuro Denies dizziness, Denies headache(s), Denies numbness, Denies tingling and Denies weakness Psych Denies anxiety and Denies depression Endo Denies fatigue Aller/Immun Denies wheezing Physical exam (Primary Care) Tobacco/Smoking Status: Tobacco use Status Tobacco use date assessed 06/18/23 08/23/23 10:12 Patient Tobacco Use Status Never used Tobacco 08/23/23 10:12 e-Cigarette/Vaping Use Never Used 08/23/23 10:12 Thrive Assessment: Date of Thrive Assessment Date Thrive assessed 03/09/22 08/23/23 10:12 Telehealth Telehealth Location of provider rendering services: practice address Location of patient: address on file Patient Identification confirmed using: Name, : Yes Telehealth method: voice only Patient verbally consented to treatment: Yes Patient verbally consented to billing insurance company: Yes Patient informed of any privacy concerns related to visit: Yes Minutes spent on Phone/Video with Pt.: 5 Assessment and Plan Assessment & Plan (1) HLD (hyperlipidemia): Code(s): E78.5 - Hyperlipidemia, unspecified Plan: Triglycerides?are?significantly?elevated Encouraged?a?diet?low?in?saturated?fats?and?cholesterol?as?well?as?lower?in?sugars Will?repeat?this (2) Pre-diabetes: Code(s): R73.03 - Prediabetes Plan: Still?has?elevated?fasting?blood?sugars Will?repeat?this?along?with?an?A1c?test Encouraged?a?diet?low?in?sugars?and?starches (3) Mild anemia: Code(s): D64.9 - Anemia, unspecified Plan: Appears?to?be?improving. Orders: Orders Comprehensive [place]. Panel Fast Today R73.03 - Prediabetes, Z00.00 - Encounter for general adult medical examination without abnormal findings Lipid Panel Today E78.5 - Hyperlipidemia, unspecified, Z00.00 - Encounter for general adult medical examination without abnormal findings Hemoglobin A1c Today R73.01 - Impaired fasting glucose, R73.03 - Prediabetes Coding Level of Care Code Tele Est Pt Level 2 (62672) Diagnoses HLD (hyperlipidemia) E78.5 Pre-diabetes R73.03 Mild anemia D64.9
== END 2023-08-23 10:45 | disposition home or self-care (01) ==
PROVIDERS: PCP Family Medicine; Visit Provider Family Medicine
DX: E78.5 Hyperlipidemia, unspecified (principal); R73.03 Prediabetes; D64.9 Anemia, unspecified
CPT/HCPCS: 99212

== ENCOUNTER 2023-09-22 10:58 | Outpatient (AMB) | payer MEDICARE, SELFPAY ==
[2023-09-22 11:00] VITALS: BP 120/90; PULSE 91; TEMP 36.1; O2SAT 96; BMI 32.1
--- NOTE | 2023-09-22 11:00 | MHC.OFFVIS ---
Intake Vital Signs 09/22/23 11:00 Height 5 ft 1.5 in Weight 172 lb 13.478 oz BMI 32.1 BP 120/90 H Blood Pressure Location Lt brachial Position Sitting Pulse 91 Pulse Source Pulse Oximeter Temp 97 F Temp Source Skin Pulse Oximetry (%) 96 Oxygen Delivery Method Room Air Intake Visit Reasons: OA Intake Note: New pt presents today for consult. C/o telma hand pain, telma knee pain, telma hip pain, telma leg pain No tx has been tried. No prior reumatologist. House Parent Required: No Accompanied by: Daughter Allergies flu vaccine Allergy (Unknown, Uncoded 09/22/23 11:07) Hives Medication List - Last Reconciled 09/22/23 by Yulisa Stephens MD amlodipine 5 mg PO DAILY 90 days atorvastatin 40 mg PO DAILY 90 days chlorhexidine gluconate 0.12% mL PO cholecalciferol (vitamin D3) 50 mcg PO DAILY cyclobenzaprine 5 mg PO TID PRN 5 days cyclosporine 0.05% (Restasis) 1 drp ophthalmic (eye) Q12H 30 days enalapril maleate 5 mg PO DAILY fluticasone propionate 50 mcg/actuation 2 sprays intranasal BID 30 days lidocaine 5% (Lidoderm) 1 patch topical DAILY 30 days melatonin 10 mg (2 x 5 mg) PO BEDTIME PRN 30 days naproxen 500 mg PO BID PRN 30 days omeprazole 20 mg PO DAILY 30 days polyethylene glycol 3350 (Miralax) 17 grams PO DAILY 30 days psyllium husk (Metamucil) 1 tbsp PO DAILY 30 days vit C,E-Qn-dgyel-lutein-zeaxan 250-90-40-1 mg (PreserVision AREDS-2) 1 cap PO BID HPI HPI Comments History of Present Illness Details This is a 67-year-old female who presents for evaluation of bilateral hand pain and bilateral hip pain. She states that she has had bilateral hand pain for many years. 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 She states that she gets morning stiffness of her hands lasting about 5 minutes. She takes naproxen 3 or 4 times a week as needed for joint pain which is moderately helpful. She also uses lidocaine patches. What is most painful is her DIPs. She states that her right hand was in an accident at work with a machine many years ago and her right middle finger was injured. She did not have any surgery for it. She also states that she has bilateral hip pain, worse on the right. Especially when lying on her side at night. She received an injection in the outer aspect of her right hip 2 years ago which lasted about 2 months. [facility] Medical History Macular degeneration Low back pain Right sciatic nerve pain GERD (gastroesophageal reflux disease) Depression HLD (hyperlipidemia) Hypertension Surgical History History of bladder surgery History of back surgery Social History Housing: House Alcohol intake: never Patient Tobacco Use Status: Never used Tobacco e-Cigarette/Vaping Use: Never Used Second Hand Smoke Exposure: No service: No Current occupational status: retired Current occupational exposures/hazards: No Cognitive needs: Yes (cane/walker) Hearing needs: No Vision needs: Yes (glasses) Review of Systems Eyes Reports dry eyes ENT Reports tinnitus GI Reports constipation and Reports nausea Musc Reports arthralgias, Reports joint swelling and Reports stiffness Physical Exam Vital Signs: Last Vital Signs Temp 97 F 09/22/23 11:00 Pulse 91 09/22/23 11:00 BP 120/90 H 09/22/23 11:00 Pulse Ox 96 09/22/23 11:00 Oxygen Delivery Method Room Air 09/22/23 11:00 BMI result Body Mass Index 32.1 Const General: cooperative, healthy appearing and comfortable Nutritional Appearance: obese Orientation/consciousness: patient oriented x3 Limitations: no limitations HEENT Head: Yes normocephalic and Yes atraumatic Mouth: moist mucous membranes Resp Effort & Inspection: normal respiratory effort and able to speak in complete sentences Skin General skin exam: no rashes or lesions noted Neuro General: patient oriented x3 Extrem Other: Significant osteoarthritic changes of both hands with prominent Heberden's nodes, some are tender. Normal nailfold capillaroscopy Right trochanteric bursa area tenderness with negative Roberto's test Assessment & Plan Assessment & Plan (1) Arthritis of hand: Code(s): M19.049 - Primary osteoarthritis, unspecified hand Plan: This is a 67-year-old female who presents for evaluation of bilateral hand arthritis. Clinical picture consistent with bilateral hand osteoarthritis. I discussed the nature of this condition with patient. Discussed different management modalities. We discussed medications, occupational therapy and injections. Advised patient to take Tylenol and use naproxen sparingly. Can use Voltaren gel. She has a paraffin wax machine at home. She is not interested in occupational therapy or hand surgeon referral Follow-up as needed (2) Greater trochanteric pain syndrome of right lower extremity: Code(s): M25.551 - Pain in right hip Plan: S/p steroid injection 2 years ago with 2 months relief. Not interested in any more injections. Not interested in formal physical therapy. I provided patient with a printout of home exercises to do Plan I spent 32 minutes reviewing patient's chart, evaluating patient, counseling patient and documenting in the chart Coding Level of Care Code New Pt Level 3 (80281) Diagnoses Arthritis of hand M19.049 Greater trochanteric pain syndrome of right lower extremity M25.551
== END 2023-09-22 11:34 | disposition home or self-care (01) ==
PROVIDERS: PCP Family Medicine; Visit Provider Student in an Organized Health Care Education/Training Program
DX: M19.049 Primary osteoarthritis, unspecified hand (principal); M25.551 Pain in right hip
CPT/HCPCS: 99203

== ENCOUNTER → 2023-09-22 10:58 | Outpatient (BNVA) | payer MEDICARE, SELFPAY | PROVIDERS: PCP Family Medicine; Visit Provider Student in an Organized Health Care Education/Training Program | DX: M19.049 Primary osteoarthritis, unspecified hand (principal); M25.551 Pain in right hip | CPT/HCPCS: 99202 ==

== ENCOUNTER 2023-11-03 09:57 | Outpatient (AMB) | payer MEDICARE, SELFPAY ==
[2023-11-03 10:05] VITALS: BP 150/86; PULSE 78; RESP 13; TEMP 36.6; O2SAT 97; BMI 31.2
--- NOTE | 2023-11-03 10:05 | A.OFFPC_ITS ---
Vital Signs 11/03/23 10:05 11/03/23 10:50 Height 5 ft 1.5 in Weight 168 lb BMI 31.2 BP 150/86 H 160/88 H Blood Pressure Location Rt brachial Lt brachial Position Sitting Sitting Respiration 13 Pulse 78 Pulse Source Pulse Oximeter Temp 97.9 F Temp Source Temporal Artery Scan Pulse Oximetry (%) 97 Oxygen Delivery Method Room Air Intake Visit Reasons: trouble sleeping/buzzing in ears Intake Note: Patient states that the buzzing is loud and strong that it has been preventing her from sleeping and is concerned she may be losing her hearing. Patient states that the buzzing and concern of her losing her hearing has caused panic attacks at night and shes also been experiencing headaches on one side of her head and has been very shaky. Cap Inspector Required: No Accompanied by: Daughter Allergies flu vaccine Allergy (Unknown, Uncoded 11/03/23 10:51) Hives Medication List - Last Reconciled 11/03/23 by Monik Delgado, PATIENT CARE ASSISTANT- amlodipine 5 mg PO DAILY 90 days atorvastatin 40 mg PO DAILY 90 days cyclosporine 0.05% (Restasis) 1 drp ophthalmic (eye) Q12H 30 days fluticasone propionate 50 mcg/actuation 2 sprays intranasal BID 30 days melatonin 10 mg (2 x 5 mg) PO BEDTIME PRN 30 days naproxen 500 mg PO BID PRN 30 days psyllium husk (Metamucil) 1 tbsp PO DAILY 30 days Tobacco use date assessed: 11/03/23 Fall risk assessment: No Falls in past year Last assessed Fall Risk: 11/03/23 Dental Screening Dental Screen Date: 11/03/23 Did you have a dental visit in the last 12 months?: Yes Did you have a dental problem in the last 6 months where you did not have access to dental care?: No Was dental information given to patient?: Patient has dentist HPI HPI Comments History of Present Illness Details 68-year-old female here today with her d judith with complaints chronic buzzing in her ears and her head. Reports that this has been going on for greater than 2 years. She has been seen by the ENT with the last few visit a few months ago; told her symptoms were related to allergies. Reports that she has hearing loss on her right side and that no treatments can be rendered for the complaints of the tinnitus other than daily use the Flonase which she has been using. This consult is not available to me at today's visit. In addition to the buzzing she reports a constant daily headache. She has been taking Tylenol and naproxen every single day to try to control this. She also is not sleeping in his having panic attacks. She feels like she can not hear things coming up behind her when she is sleeping. She describes panic attacks as her body shaking her heart pounding and feeling on edge. She does admit a history of depression in the past which was treated with some type of medication, but she is not sure what this is. She reports this medication made her suicidal. She was working with a counselor and due to cultural differences she did not find this therapeutic. She states that she was using some herbal supplement or the like from her home country to help with her anxiety. She has not sure what this is. She was taking it for 6 months and has since stopped. She does admit that it was helping but does not want to become addicted to any medications and therefore stopped. She is also noticed that her blood pressure has been elevated. She monitors at home and reports that it has been as high as 190/90. She denies any thunderclap headache, loss of vision, head trauma, fever, nausea vomiting,, stroke-like symptoms, chest pain. [facility] Medical History Macular degeneration Low back pain Right sciatic nerve pain GERD (gastroesophageal reflux disease) Depression HLD (hyperlipidemia) Hypertension Surgical History History of bladder surgery History of back surgery Social History Housing: House Alcohol intake: never Patient Tobacco Use Status: Never used Tobacco e-Cigarette/Vaping Use: Never Used Second Hand Smoke Exposure: No service: No Current occupational status: retired Current occupational exposures/hazards: No Cognitive needs: No (cane/walker) Hearing needs: No Vision needs: No (glasses) Questionnaire Thrive Questionnaire Date Thrive assessed: 03/09/22 TIFFANIE-7 AMB Questionnaire TIFFANIE-7 Date TIFFANIE - 7 assessed: 03/09/22 Source: Developed by Carolina Del ValleW. Bandar, Aly Zee and colleagues, with an educational susan from [employer]. Review of Systems Const All systems reviewed & are unremarkable except as noted in HPI and below Physical exam (Primary Care) Vital Signs: Last Vital Signs Temp 97.9 F 11/03/23 10:05 Pulse 78 11/03/23 10:05 Resp 13 11/03/23 10:05 BP 150/86 H 11/03/23 10:05 Pulse Ox 97 11/03/23 10:05 Oxygen Delivery Method Room Air 11/03/23 10:05 BMI result Body Mass Index 31.2 Tobacco/Smoking Status: Tobacco use Status Tobacco use date assessed 11/03/23 11/03/23 10:19 Patient Tobacco Use Status Never used Tobacco 11/03/23 10:19 e-Cigarette/Vaping Use Never Used 11/03/23 10:19 Thrive Assessment: Date of Thrive Assessment Date Thrive assessed 03/09/22 11/03/23 10:19 Const Other: Awake alert oriented accompanied by her daughter Head atraumatic PERRLA, EOMI, no photophobia TM intact and clear bilat Neck full range of motion Regular rate and rhythm Lung sounds clear to auscultation bilat Anxious, tearful and crying at times, cooperative and appropriate. Moves all extremities x4. No tremors noted during exam Assessment and Plan Assessment & Plan (1) Headache: Comment: Will refer to neurology for further evaluation and treatment per the request of the patient and daughter.. This may be a medication overuse headache, may be related to her elevated blood pressure, it may be tension related. I do not think any imaging is warranted at this time Code(s): R51.9 - Headache, unspecified Qualifiers: Headache type: new daily persistent Qualified Code(s): G44.52 - New daily persistent headache (NDPH) (2) Tinnitus of both ears: Comment: Advise her to stop using NSAIDs and aspirin products as this can contribute to her tinnitus symptoms. She should continue to follow up with ENT and use Flonase as directed Code(s): H93.13 - Tinnitus, bilateral (3) Generalized anxiety disorder with panic attacks: Comment: Declines referral to a counselor. Does not want to be on a mood medication or antidepressant Code(s): F41.1 - Generalized anxiety disorder; F41.0 - Panic disorder [episodic paroxysmal anxiety] (4) Anxiety related tremor: Code(s): R25.1 - Tremor, unspecified; F41.9 - Anxiety disorder, unspecified (5) Hypertension: Comment: Blood pressure elevated today. She is on amlodipine 5 mg daily. To help control her blood pressure, tremors, headache, anxiety I am going to start her on propranolol. She was advised that she should take this at bedtime. I would like to see her back in 2 weeks to evaluate her blood pressure and to see if this has been helpful for her symptoms. We can titrate to effect as long as she is tolerating. Code(s): I10 - Essential (primary) hypertension Qualifiers: Hypertension type: primary hypertension Qualified Code(s): I10 - Essential (primary) hypertension Plan: Total time spent caring for the patient today was 60 minutes. This includes time spent before the visit reviewing the chart, time spent during the visit, and time spent after the visit on documentation This note is constructed using voice recognition software. While every effort has been made to ensure accuracy in software applications specialist, still errors may have been included Sometimes, these errors may affect the content or meaning of the given sentence . Orders: Referrals Neurology Referral H93.13 - Tinnitus, bilateral, R51.9 - Headache, unspecified Medications: New propranolol ER 60 mg PO BEDTIME 30 caps 0RF Discontinued naproxen Discontinued Reason: Doctor's Order 500 mg PO BID 30 days PRN 60 tabs 0RF pain Patient Instructions: Avoid NSAIDs and Aspirin products. Coding Level of Care Code Est Pt Level 5 (98375) Diagnoses New daily persistent headache G44.52 Headache type: new daily persistent Tinnitus of both ears H93.13 Generalized anxiety disorder with panic attacks F41.1; F41.0 Anxiety related tremor R25.1; F41.9 Primary hypertension I10 Hypertension type: primary hypertension
[2023-11-03 10:50] VITALS: BP 160/88
== END 2023-11-03 11:19 | disposition home or self-care (01) ==
PROVIDERS: PCP Family Medicine; Visit Provider Nurse Practitioner Family
DX: G44.52 New daily persistent headache (NDPH) (principal); H93.13 Tinnitus, bilateral; F41.1 Generalized anxiety disorder; F41.0 Panic disorder [episodic paroxysmal anxiety]; R25.1 Tremor, unspecified; F41.9 Anxiety disorder, unspecified; I10 Essential (primary) hypertension
CPT/HCPCS: 99215

== ENCOUNTER 2023-11-17 09:12 | Outpatient (AMB) | payer MEDICARE, SELFPAY ==
--- NOTE | 2023-11-17 09:21 | MHC.PC.OV ---
Intake Visit Reasons: fu headache, htn, anxiety Intake Note: Patient is here for a follow up for htn, headache and anxiety. Patient reports the new medication she's taking is helping well. 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 Accompanied by: Daughter Allergies flu vaccine Allergy (Unknown, Uncoded 11/17/23 09:51) Hives Medication List - Last Reconciled 11/17/23 by Monik Delgado, SPRING CRATER- amlodipine 5 mg PO DAILY 90 days atorvastatin 40 mg PO DAILY 90 days cyclosporine 0.05% (Restasis) 1 drp ophthalmic (eye) Q12H 30 days fluticasone propionate 50 mcg/actuation 2 sprays intranasal BID 30 days melatonin 10 mg (2 x 5 mg) PO BEDTIME PRN 30 days propranolol ER 60 mg PO BEDTIME psyllium husk (Metamucil) 1 tbsp PO DAILY 30 days Tobacco use date assessed: 11/03/23 HPI HPI Comments History of Present Illness Details 68-year-old female here today to follow-up on anxiety, tremors, hypertension, chronic daily headaches, and tinnitus. When she was seen at the office on November 03 a referral was placed to neurology. Headache was thought to be related to medication overuse. She was advised to stop taking deit-ovu-cwzryeh medications. Specifically her blood pressure was elevated and she was taking NSAIDs and aspirin daily. She was advised to stop these as they can worsen her hypertension as well as her tinnitus. She was encouraged to follow up with ENT and use Flonase as directed. I started her on propranolol to take at bedtime to help her blood pressure anxiety tremors and headaches. She presents today sleeping much better since starting propranolol. Headaches resolved. Cont w/ tinnitus, though improved as well. noticed her sx were related to supplements she was taking. so she has stopped taking all of these in addition to stopping NSAIDS and ASA. Using flonase as directed. BP normal today. Other notes: over the last week has started w/ low grade temp, highest 100.4 last night. Denies assoc sx other than chills. [facility] Medical History Macular degeneration Low back pain Right sciatic nerve pain GERD (gastroesophageal reflux disease) Depression HLD (hyperlipidemia) Hypertension Surgical History History of bladder surgery History of back surgery Social History Housing: House Alcohol intake: never Patient Tobacco Use Status: Never used Tobacco e-Cigarette/Vaping Use: Never Used Second Hand Smoke Exposure: No service: No Current occupational status: retired Current occupational exposures/hazards: No Cognitive needs: No (cane/walker) Hearing needs: No Vision needs: No (glasses) Questionnaire PHQ-9 Over the last 2 weeks, how often have you been bothered by any of the following problems? 61489 - PHQ-9 Billing: Patient declined-do not bill Source: Developed by Drs. Saad Ballard, Aly Henderson and colleagues, with an educational susan from [employer]. Thrive Questionnaire Date Thrive assessed: 03/09/22 TIFFANIE-7 AMB Questionnaire TIFFANIE-7 Date TIFFANIE - 7 assessed: 11/17/23 Feeling nervous, anxious, or on edge: 0 = Not at all Not being able to stop or control worryin = Not at all Worrying too much about different things: 0 = Not at all Trouble relaxin = Not at all Being so restless that it is hard to sit still: 0 = Not at all Becoming easily annoyed or irritable: 0 = Not at all Feeling afraid as if something awful might happen: 0 = Not at all Total TIFFANIE-7 score (0-4 normal; 5-9 mild; 10-14 moderate; 15-21 severe): 0 Source: Developed by Drs. Saad Ballard, Aly Henderson and colleagues, with an educational susan from [employer]. TIFFANIE-7 Assessment Billing TIFFANIE-7 Assessment Tool: TIFFANIE-7 Assessment 30240 Review of Systems Const All systems reviewed & are unremarkable except as noted in HPI and below Physical exam (Primary Care) Tobacco/Smoking Status: Tobacco use Status Tobacco use date assessed 11/03/23 11/17/23 09:21 Patient Tobacco Use Status Never used Tobacco 11/17/23 09:21 e-Cigarette/Vaping Use Never Used 11/17/23 09:21 Thrive Assessment: Date of Thrive Assessment Date Thrive assessed 03/09/22 11/17/23 09:21 Const Other: Awake alert oriented accompanied by her daughter Head atraumatic PERRLA, EOMI, no photophobia TM intact bilat, mild effusions Neck full range of motion Regular rate and rhythm Lung sounds with exp wheeze throughout, no cough Alert, smiling, cooperative and appropriate. Moves all extremities x4. No tremors noted during exam Assessment and Plan Assessment & Plan (1) Anxiety related tremor: Comment: Resolve with propranolol. Continue Code(s): R25.1 - Tremor, unspecified; F41.9 - Anxiety disorder, unspecified (2) Generalized anxiety disorder with panic attacks: Comment: Declines referral to a counselor. Does not want to be on a mood medication or antidepressant, resolve with propranolol continue Code(s): F41.1 - Generalized anxiety disorder; F41.0 - Panic disorder [episodic paroxysmal anxiety] (3) Tinnitus of both ears: Comment: Improved after cessation of NSAIDs and aspirin products along with a herbal supplements that she was using. She should continue to follow up with ENT and use Flonase as directed Code(s): H93.13 - Tinnitus, bilateral (4) Headache: Comment: Improve with cessation of herbal supplements as well as the addition of propranolol. I did encouraged to keep the neurology appointment. Code(s): R51.9 - Headache, unspecified Qualifiers: Headache type: new daily persistent Qualified Code(s): G44.52 - New daily persistent headache (NDPH) (5) Hypertension: Comment: Normotensive today. She should continue propranolol as well as amlodipine 5 mg daily. I have asked her to come back in about 4 weeks to follow up make sure that she continues to do well on this current regimen. Code(s): I10 - Essential (primary) hypertension Qualifiers: Hypertension type: primary hypertension Qualified Code(s): I10 - Essential (primary) hypertension (6) Low grade fever: Code(s): R50.9 - Fever, unspecified Plan: Viral swab obtained today and negative. This is happening in the evening. Highest temp has been as 100.4. Advised to continue to monitor and if she develops any symptoms to contact the office or come in for further evaluation and treatment. Otherwise this should resolve on its own Plan This note is constructed using voice recognition software. While every effort has been made to ensure accuracy in telecommunications manager, still errors may have been included Sometimes, these errors may affect the content or meaning of the given sentence . Total time spent caring for the patient today was 30 minutes. This includes time spent before the visit reviewing the chart, time spent during the visit, and time spent after the visit on documentation Orders: Orders SARS-CoV2/FLU/RSV Today R50.9 - Fever, unspecified Medications: Refilled propranolol ER 60 mg PO BEDTIME 90 caps 0RF Coding Level of Care Code Est Pt Level 4 (22854) Diagnoses Anxiety related tremor R25.1; F41.9 Generalized anxiety disorder with panic attacks F41.1; F41.0 Tinnitus of both ears H93.13 New daily persistent headache G44.52 Headache type: new daily persistent Primary hypertension I10 Hypertension type: primary hypertension Low grade fever R50.9 Additional Codes TIFFANIE-7 Assessment Billing - TIFFANIE-7 Assessment Tool: TIFFANIE-7 Assessment [id number] ([id number])
== END 2023-11-17 09:55 | disposition home or self-care (01) ==
PROVIDERS: PCP Family Medicine; Visit Provider Nurse Practitioner Family
DX: R25.1 Tremor, unspecified (principal); F41.9 Anxiety disorder, unspecified; F41.1 Generalized anxiety disorder; F41.0 Panic disorder [episodic paroxysmal anxiety]; H93.13 Tinnitus, bilateral; G44.52 New daily persistent headache (NDPH); I10 Essential (primary) hypertension; R50.9 Fever, unspecified
CPT/HCPCS: 99214

== ENCOUNTER 2023-11-17 12:29 | Outpatient (REF) | payer MEDICARE, SELFPAY ==
[2023-11-17 13:22] LABS: Influenza A PCR NEGATIVE (Negative); Influenza B PCR NEGATIVE (Negative); Resp Syncy Virus RNA Qual PCR NEGATIVE (Negative); SARS COV2 PCR INHOUSE NEGATIVE (Negative)
== END 2023-11-17 12:30 | disposition home or self-care (01) ==
LOC: HO.LNP 12:29
PROVIDERS: Visit Provider Nurse Practitioner Family
DX: R50.9 Fever, unspecified (principal)
CPT/HCPCS: 0241U

== ENCOUNTER 2023-12-08 09:10 | Outpatient (AMB) | payer MEDICARE, SELFPAY ==
[2023-12-08 09:13] VITALS: BP 134/90; PULSE 74; O2SAT 98; BMI 31.6
--- NOTE | 2023-12-08 09:13 | A.OFFPC_ITS ---
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 Allergies flu vaccine Allergy (Unknown, Uncoded 12/08/23 09:39) Hives Medication List - Last Reconciled 12/08/23 by Monik Delgado FAMILY PROTECTION SPECIALIST- amlodipine 5 mg PO DAILY 90 days atorvastatin 40 mg PO DAILY 90 days cyclosporine 0.05% (Restasis) 1 drp ophthalmic (eye) Q12H 30 days fluticasone propionate 50 mcg/actuation 2 sprays intranasal BID 30 days melatonin 10 mg (2 x 5 mg) PO BEDTIME PRN 30 days propranolol ER 60 mg PO BEDTIME psyllium husk (Metamucil) 1 tbsp PO DAILY 30 days Tobacco use date assessed: 12/08/23 Fall risk assessment: No Falls in past year Last assessed Fall Risk: 12/08/23 HPI HPI Comments History of Present Illness Details 68-year-old female here today to follow- up on anxiety, tremors, hypertension, chronic daily headaches, and tinnitus. When she was seen at the office on November 03 a referral was placed to neurology. Headache was thought to be related to medication overuse. She was advised to stop taking afkb-ulq-dqesoff medications. Specifically her blood pressure was elevated and she was taking NSAIDs and aspirin daily. She was advised to stop these as they can worsen her hypertension as well as her tinnitus. She was encouraged to follow up with ENT and use Flonase as directed. I started her on propranolol to take at bedtime to help her blood pressure anxiety tremors and headaches. She presents at last visit sleeping much better since starting propranolol. Headaches resolved. Cont w/ tinnitus, though improved as well. noticed her sx were related to supplements she was taking. so she has stopped taking all of these in addition to stopping NSAIDS and ASA. Using flonase as directed. BP normal at last OV. Presents today stating that she has been without the propranolol for a few days due to issues at the pharmacy. Reports that the prescription is ready and available for pharmacy picking technician today and she will get it today. Since being without it she was not able to sleep as well. Admits return of her headaches. As well as the tremors. She does have an appointment with Neurology scheduled in February and ENT as well in a few months. Would like to establish care with me for primary care. Requested labs to evaluate chronic conditions. Itchy rash to upper eye lids that comes and goes. [facility] Medical History Macular degeneration Low back pain Right sciatic nerve pain GERD (gastroesophageal reflux disease) Depression HLD (hyperlipidemia) Hypertension Surgical History History of bladder surgery History of back surgery Social History Housing: House Alcohol intake: never Patient Tobacco Use Status: Never used Tobacco e-Cigarette/Vaping Use: Never Used Second Hand Smoke Exposure: No service: No Current occupational status: retired Current occupational exposures/hazards: No Cognitive needs: No (cane/walker) Hearing needs: No Vision needs: No (glasses) Questionnaire Thrive Questionnaire Date Thrive assessed: 12/08/23 I am a: Patient What is your living situation today?: I have a steady place to live Within the past 12 months, did the food you bought not last and you didn't have the money to get more?: Never true Within the past 12 months, did you worry whether your food would run out before you got money to buy more?: Never true Do you have trouble paying for medicines?: No Do you have trouble getting transportation to medical appointments?: No Do you have trouble paying your heating and electricity bill?: No Do you have trouble taking care of your child, family member or friend?: No Do you have trouble with day-to-day activities such as bathing, preparing meals, shopping, managing finances, etc.?: No Are you currently unemployed and looking for a job?: No Are you interested in more education?: No Please select the resources that you would like help with: None THRIVE Score: 0 AUDIT C Alcohol Use Questionnaire (AUDIT-C) 1. How often do you have a drink containing alcohol?: Never 3. How often do you have six or more drinks on one occasion?: Never Total Score: 0 TIFFANIE-7 AMB Questionnaire TIFFANIE-7 Date TIFFANIE - 7 assessed: 11/17/23 Source: Developed by DrsNicole Ballard, Carolina Portillo, Aly Zee and colleagues, with an educational susan from [employer]. Review of Systems Const All systems reviewed & are unremarkable except as noted in HPI and below Physical exam (Primary Care) Vital Signs: Last Vital Signs Pulse 74 12/08/23 09:13 BP 134/90 H 12/08/23 09:13 Pulse Ox 98 12/08/23 09:13 Oxygen Delivery Method Room Air 12/08/23 09:13 BMI result Body Mass Index 31.6 Tobacco/Smoking Status: Tobacco use Status Tobacco use date assessed 12/08/23 12/08/23 09:15 Patient Tobacco Use Status Never used Tobacco 12/08/23 09:15 e-Cigarette/Vaping Use Never Used 12/08/23 09:15 Thrive Assessment: Date of Thrive Assessment Date Thrive assessed 12/08/23 12/08/23 09:15 Const Other: Awake alert oriented accompanied by her daughter Head atraumatic PERRLA, EOMI, no photophobia, eczematous rash to upper eye lids bilat L>R Neck full range of motion Regular rate and rhythm Lung sounds cTAB Alert, smiling, cooperative and appropriate. Moves all extremities x4. No tremors noted during exam Assessment and Plan Assessment & Plan (1) Anxiety related tremor: Comment: Resolve with propranolol. Continue however admits breakthrough sx w/o the medication will f/u at next visit Code(s): R25.1 - Tremor, unspecified; F41.9 - Anxiety disorder, unspecified (2) Eczematous dermatitis, upper eyelids, bilateral: Comment: start desonide 0.05% sparingly QD 3 days on 3 days off until healed;do not get into the eyes Code(s): H01.131 - Eczematous dermatitis of right upper eyelid; H01.134 - Eczematous dermatitis of left upper eyelid (3) Generalized anxiety disorder with panic attacks: Comment: Declines referral to a counselor. Does not want to be on a mood medication or antidepressant, resolved with propranolol continue Code(s): F41.1 - Generalized anxiety disorder; F41.0 - Panic disorder [episodic paroxysmal anxiety] (4) Headache: Comment: Improve with cessation of herbal supplements as well as the addition of proprano lol. I did encouraged to keep the neurology appointment. breakthrough headache w cessation of propranolol. She will start this again tonight Code(s): R51.9 - Headache, unspecified Qualifiers: Headache type: new daily persistent Qualified Code(s): G44.52 - New daily persistent headache (NDPH) (5) Tinnitus of both ears: Comment: Improved after cessation of NSAIDs and aspirin products along with a herbal supplements that she was using. She should continue to follow up with ENT and use Flonase as directed Code(s): H93.13 - Tinnitus, bilateral (6) Hypertension: Comment: BP > range today, as she was out of propranolol. She should continue propranolol as well as amlodipine 5 mg daily. I have asked her to come back in about 2-3 weeks to follow up make sure that she continues to do well on this current regimen. Code(s): I10 - Essential (primary) hypertension Qualifiers: Hypertension type: primary hypertension Qualified Code(s): I10 - Essential (primary) hypertension (7) Normocytic anemia: Code(s): D64.9 - Anemia, unspecified (8) Pre-diabetes: Code(s): R73.03 - Prediabetes (9) Low vitamin D level: Code(s): R79.89 - Other specified abnormal findings of blood chemistry (10) HLD (hyperlipidemia): Code(s): E78.5 - Hyperlipidemia, unspecified Plan This note is constructed using voice recognition software. While every effort has been made to ensure accuracy in well drill operator, still errors may have been included Sometimes, these errors may affect the content or meaning of the given sentence . Total time spent caring for the patient today was 45 minutes. This includes time spent before the visit reviewing the chart, time spent during the visit, and time spent after the visit on documentation Orders: Orders Vitamin D 1,25 dihydroxy Today E78.5 - Hyperlipidemia, unspecified, R73.03 - Prediabetes, R79.89 - Other specified abnormal findings of blood chemistry Complete Blood Count no Diff Today E78.5 - Hyperlipidemia, unspecified, R73.03 - Prediabetes, R79.89 - Other specified abnormal findings of blood chemistry IRON PROFILE Today E78.5 - Hyperlipidemia, unspecified, R73.03 - Prediabetes, R79.89 - Other specified abnormal findings of blood chemistry Comprehensive [place]. Panel Fast Today E78.5 - Hyperlipidemia, unspecified, R73.03 - Prediabetes, R79.89 - Other specified abnormal findings of blood chemistry Lipid Panel Today E78.5 - Hyperlipidemia, unspecified, R73.03 - Prediabetes, R79.89 - Other specified abnormal findings of blood chemistry TSH reflex Free T4 Today E78.5 - Hyperlipidemia, unspecified, R73.03 - Prediabetes, R79.89 - Other specified abnormal findings of blood chemistry Microalbumin, Random (w Creat) Today E78.5 - Hyperlipidemia, unspecified, R73.03 - Prediabetes, R79.89 - Other specified abnormal findings of blood chemistry Medications: New desonide 0.05% apply sparingly to eye lid, do not get in the eyes; use for 3 days, then stop for 3 days. repeat until healed 1 appl topical DAILY 15 grams 0RF Patient Instructions: Return to office in 2-3 weeks to review labs and follow up on chronic care conditions Coding Level of Care Code Est Pt Level 5 (04197) Diagnoses Anxiety related tremor R25.1; F41.9 Eczematous dermatitis, upper eyelids, bilateral H01.131; H01.134 Generalized anxiety disorder with panic attacks F41.1; F41.0 New daily persistent headache G44.52 Headache type: new daily persistent Tinnitus of both ears H93.13 Primary hypertension I10 Hypertension type: primary hypertension Normocytic anemia D64.9 Pre-diabetes R73.03 Low vitamin D level R79.89 HLD (hyperlipidemia) E78.5
== END 2023-12-08 09:52 | disposition home or self-care (01) ==
PROVIDERS: PCP Nurse Practitioner Family; Visit Provider Nurse Practitioner Family
DX: R25.1 Tremor, unspecified (principal); F41.9 Anxiety disorder, unspecified; H01.131 Eczematous dermatitis of right upper eyelid; H01.134 Eczematous dermatitis of left upper eyelid; F41.1 Generalized anxiety disorder; F41.0 Panic disorder [episodic paroxysmal anxiety]; G44.52 New daily persistent headache (NDPH); H93.13 Tinnitus, bilateral; I10 Essential (primary) hypertension; D64.9 Anemia, unspecified; R73.03 Prediabetes; R79.89 Other specified abnormal findings of blood chemistry
CPT/HCPCS: 99215

== ENCOUNTER 2023-12-08 09:55 | Outpatient (REF) | payer MEDICARE, SELFPAY ==
[2023-12-08 11:36] LABS: Hematocrit 38.5 % (37.0-47.0); Hemoglobin 12.7 g/dl (12.0-16.0); Mean Corpuscular Hemoglobin 30.1 pg (27.0-33.0); Mean Corpuscular Volume 91.2 fL (80.0-98.0); Platelet Count 204 X10*3/uL (160-400); Red Blood Count 4.22 X10*6/uL (4.20-5.50); Red Cell Distribution Width 13.5 % (11.0-16.0); White Blood Count 3.5 X10*3/uL (4.8-10.8)
[2023-12-08 12:33] LABS: Creatinine Urine 70.46 mg/dL; Microalbum/Creatinine Ratio Ur 11.3 ug/mg cr (<30)
[2023-12-08 12:33] LABS: Alanine Aminotransferase 23 U/L (0-31); Albumin Level 4.7 g/dL (3.5-5.0); Alkaline Phosphatase 63 U/L (39-117); Anion Gap 12 (12-20); Aspartate Amino Transferase 22 U/L (5-31); Bilirubin Total 0.5 mg/dL (0.0-1.0); Blood Urea Nitrogen 19 mg/dL (9-16); Calcium 10.1 mg/dL (8.4-10.2); Carbon Dioxide 27 mmol/L (22-29); Chloride 105 mmol/L (96-108); Cholesterol 304 mg/dL (<200); Estimated Glomerular Filt Rate > 60; Glucose Fasting 116 mg/dL (60-99); HDL Cholesterol 48 mg/dL (>40); Iron 89 mcg/dL (30-160); LDL Cholesterol Calculated 199 mg/dL (<100); Percent Iron Saturation 25 % (15-50); Potassium 4.7 mmol/L (3.3-5.1); Sodium 139 mmol/L (135-145); TSH reflex Free T4 0.98 uIU/mL (0.32-4.0); Total Iron Binding Capacity 353 mcg/dL (228-428); Triglycerides 285 mg/dL (<150); Unsaturated Iron Binding 264 ug/dL
[2023-12-12 09:54] LABS: VITAMIN D (1,25 OH) D3 62 pg/mL; Vit D (1,25-Dihydroxy) Total 62 pg/mL (18-72); Vitamin D (1,25 OH) D2 <8 pg/mL
== END 2023-12-08 09:56 | disposition home or self-care (01) ==
LOC: HO.WFDLDS 09:55
PROVIDERS: Visit Provider Nurse Practitioner Family
DX: Z00.00 Encounter for general adult medical examination without abnormal findings (principal); R79.89 Other specified abnormal findings of blood chemistry; E78.5 Hyperlipidemia, unspecified; R73.03 Prediabetes; R73.01 Impaired fasting glucose; M54.9 Dorsalgia, unspecified
CPT/HCPCS: 36415; 80053; 80061; 82043; 82570; 82652; 83540; 84443; 85027

== ENCOUNTER 2023-12-30 08:36 | Outpatient (AMB) | payer MEDICARE, SELFPAY ==
--- NOTE | 2023-12-30 08:44 | A.OFFPC_ITS ---
Vital Signs 12/30/23 08:45 Height 5 ft 1.5 in Weight 170 lb BMI 31.6 BP 118/68 Blood Pressure Location Lt brachial Position Sitting Respiration 13 Pulse 69 Pulse Source Pulse Oximeter Pulse Oximetry (%) 97 Oxygen Delivery Method Room Air Intake Visit Reasons: fu labs/anxiety/headache/tremors Intake Note: Patient is here to follow up with labs. Patient reports she is still unable to sleep well. Patient reports she feels dizzy at times and should check her blood pressure when this happens. Yield Loss Inspector Required: No Accompanied by: Self / Same As Patient Allergies flu vaccine Allergy (Unknown, Uncoded 12/30/23 08:58) Hives Medication List - Last Reconciled 12/30/23 by Monik Delgado, EDITOR NEWSPAPER- amlodipine 5 mg PO DAILY 90 days atorvastatin 40 mg PO DAILY 90 days cyclosporine 0.05% (Restasis) 1 drp ophthalmic (eye) Q12H 30 days desonide 0.05% 1 appl topical DAILY fluticasone propionate 50 mcg/actuation 2 sprays intranasal BID 30 days melatonin 10 mg (2 x 5 mg) PO BEDTIME PRN 30 days propranolol ER 60 mg PO BEDTIME psyllium husk (Metamucil) 1 tbsp PO DAILY 30 days Tobacco use date assessed: 12/08/23 Dental Screening Dental Screen Date: 11/03/23 HPI HPI Comments History of Present Illness Details 68-year-old female with HLD, anxiety, tr emors, hypertension, chronic daily headaches, tinnitus, eczema Health Maintenance: Mammogram 08/11/2022 normal DEXA 08/09/2020 normal (repeat 2024) Colonoscopy: Upper Endo 09/2019: chronic gastritis Labs from December 07 show low WBC 3.5, otherwise normal CBC, normal lytes, BUN 19, creatinine 0.7, fasting glucose 116, normal iron, normal LFTs, elevated triglycerides 285, total cholesterol 304, LDL 199, HDL 48, normal TSH, normal urine microalbumin creatinine, vitamin-D normal. Here today to follow up. Labs from 12/08/2023 reviewed with her and daughter. Reports that she has not taking her atorvastatin 40 mg as she fears the 40 mg is too much for her. She was taking 20 mg in the past and was okay with this. However her previous provider increase this due to lipid profile greater than goal. A lipid profile remains above goal today. She is willing to take an alternate medication. She denies any chest pain. In regards to her hypertension. She is worried now that she is having episodes of low blood pressure. She thinks it maybe the amlodipine 5 mg. Reports that her symptoms include feeling dizzy. She feels really well on the propranolol. Helping control her tremors, anxiety, headache. Would like to continue this. Reports blood pressure at home within goal. Complaints of insomnia.using melatonin 10mg at HS. Falls asleep fine. Cannot stay asleep; sleeping only a few hours. Wakes around 3-5 am and cannot return to sleep. Reports witnessed apneic periods. Has never had a sleep study. Reports improvement of her eczematous rash on her face with use of cream. [facility] Medical History (Updated 12/30/23 @ 14:34 by Monik Delgado, [facility]) Arthritis of hand Left hip pain Right shoulder pain Difficulty sleeping Right-sided back pain Macular degeneration Right sciatic nerve pain GERD (gastroesophageal reflux disease) Depression HLD (hyperlipidemia) Hypertension Surgical History History of bladder surgery History of back surgery Social History Housing: House Alcohol intake: never Patient Tobacco Use Status: Never used Tobacco e-Cigarette/Vaping Use: Never Used Second Hand Smoke Exposure: No service: No Current occupational status: retired Current occupational exposures/hazards: No Cognitive needs: No (cane/walker) Hearing needs: No Vision needs: No (glasses) Questionnaire Thrive Questionnaire Date Thrive assessed: 12/08/23 TIFFANIE-7 AMB Questionnaire TIFFANIE-7 Date TIFFANIE - 7 assessed: 11/17/23 Source: Developed by Drs. Saad Ballard, Carolina Portillo, Aly Zee and colleagues, with an educational susan from [employer]. Review of Systems Const All systems reviewed & are unremarkable except as noted in HPI and below Physical exam (Primary Care) Vital Signs: Last Vital Signs Pulse 69 12/30/23 08:45 Resp 13 12/30/23 08:45 BP 118/68 12/30/23 08:45 Pulse Ox 97 12/30/23 08:45 Oxygen Delivery Method Room Air 12/30/23 08:45 BMI result Body Mass Index 31.6 Tobacco/Smoking Status: Tobacco use Status Tobacco use date assessed 12/08/23 12/30/23 08:49 Patient Tobacco Use Status Never used Tobacco 12/30/23 08:49 e-Cigarette/Vaping Use Never Used 12/30/23 08:49 Thrive Assessment: Date of Thrive Assessment Date Thrive assessed 12/08/23 12/30/23 08:49 Const Other: Awake alert oriented accompanied by her daughter Head atraumatic PERRLA, EOMI, no photophobia, eczematous rash to upper eye lids bilat L>R greatly improved since last visit Neck full range of motion Regular rate and rhythm Lung sounds cTAB Alert, smiling, cooperative and appropriate. Moves all extremities x4. No tremors noted during exam Assessment and Plan Assessment & Plan (1) Daytime somnolence: Code(s): R40.0 - Somnolence Plan: Check sleep study. (2) HLD (hyperlipidemia): Comment: Has not been taking atorvastatin 40 mg as directed. Feels a 40 mg is too much for her. Plan: Discontinue atorvastatin. Start rosuvastatin 10 mg daily. Repeat lipid panel in 3 months Code(s): E78.5 - Hyperlipidemia, unspecified Qualifiers: Hyperlipidemia type: mixed hyperlipidemia Qualified Code(s): E78.2 - Mixed hyperlipidemia (3) Eczematous dermatitis, upper eyelids, bilateral: Comment: Continue: desonide 0.05% sparingly QD 3 days on 3 days off until healed;do not get into the eyes Code(s): H01.131 - Eczematous dermatitis of right upper eyelid; H01.134 - Eczematous dermatitis of left upper eyelid (4) Low vitamin D level: Comment: November 2023 vitamin-D level within normal limits without supplementation. No need to supplement. Code(s): R79.89 - Other specified abnormal findings of blood chemistry (5) Normocytic anemia: Comment: Labs from November of 2023 within normal limits without supplementation. Code(s): D64.9 - Anemia, unspecified (6) Pre-diabetes: Comment: Fasting glucose mildly elevated at 116 12/08/2023. Lifestyle modifications and continue monitoring with repeat labs in 3 months Code(s): R73.03 - Prediabetes (7) Hypertension: Comment: BP at goal today. However she reports dizziness and concern for low blood pressure at home. She would like to decrease her amlodipine. Plan will be to discontinue her amlodipine 5 mg. Start amlodipine 2.5 mg daily. Monitor blood pressure daily at home. Continue to take her propranolol ER 60 mg p.o. at bedtime as this is working well for her anxiety, headaches, blood pressure. Code(s): I10 - Essential (primary) hypertension Qualifiers: Hypertension type: primary hypertension Qualified Code(s): I10 - Essential (primary) hypertension (8) Insomnia: Comment: Sleep maintenance. Able to fall asleep with melatonin 10 mg daily. Plan will be to check a sleep study and discontinue melatonin 10 mg daily and start melatonin ER 10 mg daily. Code(s): G47.00 - Insomnia, unspecified Qualifiers: Insomnia type: primary Qualified Code(s): F51.01 - Primary insomnia Plan THIS NOTE IS CONSTRUCTED USING VOICE RECOGNITION SOFTWARE. WHILE EVERY EFFORT HAS BEEN MADE TO ENSURE ACCURACY IN JANITORIAL MAINTENANCE WORKER, STILL ERRORS MAY HAVE BEEN INCLUDED SOMETIMES, THESE ERRORS MAY AFFECT THE CONTENT OR MEANING OF THE GIVEN SENTENCE . TOTAL TIME SPENT CARING FOR THE PATIENT TODAY WAS 45 MINUTES. THIS INCLUDES TIME SPENT BEFORE THE VISIT REVIEWING THE CHART, TIME SPENT DURING THE VISIT, AND TIME SPENT AFTER THE VISIT ON DOCUMENTATION Orders: Orders RT home sleep study Today R06.83 - Snoring, R40.0 - Somnolence Lipid Panel 03/27/24 E78.5 - Hyperlipidemia, unspecified Comprehensive [place]. Panel Fast Today E78.5 - Hyperlipidemia, unspecified Medications: New amlodipine 2.5 mg PO DAILY 90 tabs 0RF rosuvastatin 10 mg PO DAILY 90 tabs 1RF melatonin ER 10 mg PO DAILY 90 tabs 0RF Discontinued atorvastatin Discontinued Reason: Doctor's Order 40 mg PO DAILY 90 days 90 tabs 3RF amlodipine Discontinued Reason: Doctor's Order 5 mg PO DAILY 90 days 90 tabs 3RF melatonin Discontinued Reason: Doctor's Order 10 mg (2 x 5 mg) PO BEDTIME 30 days PRN 60 caps 2RF insomnia Patient Instructions: STOP taking Atorvastatin 40mg START taking Rosuvastatin 10mg daily (for your cholesterol) STOP taking amlodipine 5mg START taking Amlodipine 2.5 mg daily Check your BP daily, bring log with you to next appt. Return to office in 3 months for follow up of chronic conditions periods labs prior to this visit. I have also asked her to schedule a visit 1-2 weeks after her sleep study is complete so that we can review the results. Coding Level of Care Code Est Pt Level 5 (85365) Diagnoses Daytime somnolence R40.0 Mixed hyperlipidemia E78.2 Hyperlipidemia type: mixed hyperlipidemia Eczematous dermatitis, upper eyelids, bilateral H01.131; H01.134 Low vitamin D level R79.89 Normocytic anemia D64.9 Pre-diabetes R73.03 Primary hypertension I10 Hypertension type: primary hypertension Primary insomnia F51.01 Insomnia type: primary
[2023-12-30 08:45] VITALS: BP 118/68; PULSE 69; RESP 13; O2SAT 97; BMI 31.6
== END 2023-12-30 09:19 | disposition home or self-care (01) ==
PROVIDERS: PCP Nurse Practitioner Family; Visit Provider Nurse Practitioner Family
DX: R40.0 Somnolence (principal); E78.2 Mixed hyperlipidemia; H01.131 Eczematous dermatitis of right upper eyelid; H01.134 Eczematous dermatitis of left upper eyelid; R79.89 Other specified abnormal findings of blood chemistry; D64.9 Anemia, unspecified; R73.03 Prediabetes; I10 Essential (primary) hypertension; F51.01 Primary insomnia
CPT/HCPCS: 99215

== ENCOUNTER 2024-04-06 08:35 | Outpatient (AMB) | payer MEDICARE, SELFPAY ==
--- NOTE | 2024-04-06 08:43 | AM.OFFWIN_ITS ---
Intake Vital Signs 3 04/06/24 08:53 04/06/24 09:03 Weight 172 lb BP 152/84 H 138/84 Blood Pressure Location Rt brachial Lt brachial Position Sitting Sitting Respiration 16 Pulse 78 Pulse Source Pulse Oximeter Temp 97.8 F Temp Source Temporal Artery Scan Pulse Oximetry (%) 97 Oxygen Delivery Method Room Air Intake Visit Reasons: FU LIPIDS, HTN Intake Note: patient here for follow up and refills on all her meds. Patient Tobacco Use Status: Never used Tobacco Is last menstrual period known: No Post menopausal: No Patient : No Allergies flu vaccine Allergy (Unknown, Uncoded 04/06/24 09:13) Hives Medication List - Last Reconciled 04/06/24 by Monik Delgado, FURNACE CLEANER- amlodipine 2.5 mg PO DAILY cyclosporine 0.05% (Restasis) 1 drp ophthalmic (eye) Q12H 30 days desonide 0.05% 1 appl topical DAILY fluticasone propionate 50 mcg/actuation 2 sprays intranasal BID 30 days melatonin ER 10 mg PO DAILY propranolol ER 60 mg PO BEDTIME psyllium husk (Metamucil) 1 tbsp PO DAILY 30 days rosuvastatin 10 mg PO DAILY Do you need a note to return to daycare/school/sports/work: No HPI HPI Comments 2 History of Present Illness0 Details 68-year-old female with HLD, anxiety, tr emors, hypertension, chronic daily headaches, tinnitus, eczema Health Maintenance: Mammogram 08/11/2022 normal DEXA 08/09/2020 normal (repeat 2024) Colonoscopy: Upper Endo 09/2019: chronic gastritis Here today with granddtr to f/u on chronic conditions. Her hypertension is well controlled on the current medications. She is no longer reporting any symptoms of low blood pressure with a decrease in the amlodipine from 5 mg to 2.5 mg daily. She does admit that she was out of propranolol for about a week and she noticed an increase in her blood pressure. She continues to endorse good sleeping and headache control along with anxiety controlled with the use of the propranolol bedtime. In regards to her sleep, she was prescribed melatonin ER 10 mg at the last office visit. She has been using this along with the immediate release and feels that they both were quite well. She is sleeping very well. I ordered a sleep study however she does not feel like this is necessary as she is sleeping well and feeling well. This order was canceled today. She is tolerating her rosuvastatin use for hyperlipidemia. Lipid profile performed today shows great improvement. She is complaining of some muscle cramps. She reports that these have been present for several years. They come and go. She also complains of occasional GERD symptoms. She is using natural supplements such as planting seeds with positive effect. She is also using pre and probiotics. She was on omeprazole in the past and this also seemed to help. She prefers natural remedies. Complains of a painful skin lesion on her right shoulder blade. Present for about a year. She also reports several scattered skin lesions that are itchy. One is on her left posterior back, to underneath bilat breast. She would like these to be evaluated. She continues to suffer with eczema symptoms. Using the topical steroid to her eyelids with positive effect. Exam: Awake alert oriented accompanied by her granddaughter Head atraumatic PERRLA, EOMI, no photophobia, eczematous rash to upper eye lids bilat L>R barely visible today. Neck full range of motion Regular rate and rhythm Lung sounds cTAB No hepatomegaly, abd soft, nontender No edema BLE Alert, smiling, cooperative and appropriate. Moves all extremities x4. No tremors noted during exam Plan Refill sent on all medications today. Dermatology referral placed for the concern of the skin lesions as well as her eczema. Continue blood pressure medications as ordered Try using 1 tsp yellow mustard as needed to help like cramps. P.r.n. omeprazole 20 mg sent in to help with breakthrough GERD symptoms. Okay to continue the natural supplements if these are providing relief. Okay to use melatonin either IR or ER if this is providing benefit for your sleep. Sleep study discontinued as patient does not feel like she needs set this time. Return to office in 4-6 months with repeat labs done 1 week before, to follow up on chronic conditions. Sooner if needed. Labs from today show normal electrolytes, normal renal function, fasting glucose 118, ALT 44 otherwise normal LFTs, total cholesterol 153, triglycerides 196, LDL 62, HDL 52 [facility] Medical History (Updated 04/06/24 @ 13:06 by Monik Delgado, [employer]-) Arthritis of hand Left hip pain Right shoulder pain Difficulty sleeping Right-sided back pain Macular degeneration Right sciatic nerve pain GERD (gastroesophageal reflux disease) Depression HLD (hyperlipidemia) Hypertension Surgical History History of bladder surgery History of back surgery Social History Housing: House Alcohol intake: never Patient Tobacco Use Status: Never used Tobacco e-Cigarette/Vaping Use: Never Used Second Hand Smoke Exposure: No service: No Current occupational status: retired Current occupational exposures/hazards: No Cognitive needs: No (cane/walker) Hearing needs: No Vision needs: No (glasses) Physical Exam Vital Signs: Last Vital Signs Temp 97.8 F 04/06/24 08:53 Pulse 78 04/06/24 08:53 Resp 16 04/06/24 08:53 BP 138/84 04/06/24 09:03 Pulse Ox 97 04/06/24 08:53 Oxygen Delivery Method Room Air 04/06/24 08:53 Skin Full body images: 2 1. popcorn seed sized raised skin lesion with regular borders, [place]. no drainage 2. flesh colored slightly raised plaque with crusting, no drainage 3. see # 4 4. 2 flesh colored slightly raised plaques Assessment & Plan Assessment & Plan (1) Eczematous dermatitis, upper eyelids, bilateral: Comment: Continue: desonide 0.05% sparingly QD 3 days on 3 days off until healed;do not get into the eyes Code(s): H01.131 - Eczematous dermatitis of right upper eyelid; H01.134 - Eczematous dermatitis of left upper eyelid (2) Skin lesion of back: Code(s): L98.9 - Disorder of the skin and subcutaneous tissue, unspecified (3) Insomnia: Code(s): G47.00 - Insomnia, unspecified Qualifiers: Insomnia type: primary Qualified Code(s): F51.01 - Primary insomnia (4) Anxiety related tremor: Comment: Resolve with propranolol. Continue Code(s): R25.1 - Tremor, unspecified; F41.9 - Anxiety disorder, unspecified Plan: . (5) Leg cramps: Code(s): R25.2 - Cramp and spasm Plan: . (6) Hypertension: Comment: BP at goal today. Start amlodipine 2.5 mg daily. Monitor blood pressure daily at home. Continue to take her propranolol ER 60 mg p.o. at bedtime as this is working well for her anxiety, headaches, blood pressure. Code(s): I10 - Essential (primary) hypertension Qualifiers: Hypertension type: primary hypertension Qualified Code(s): I10 - Essential (primary) hypertension Plan: , (7) HLD (hyperlipidemia): Comment: cont rosuvastatin 10 mg daily. Repeat lipid panel Code(s): E78.5 - Hyperlipidemia, unspecified Qualifiers: Hyperlipidemia type: mixed hyperlipidemia Qualified Code(s): E78.2 - Mixed hyperlipidemia Plan: . Plan . This note is constructed using voice recognition software. While every effort has been made to ensure accuracy in ethnic studies professor, still errors may have been included Sometimes, these errors may affect the content or meaning of the given sentence . Total time spent caring for the patient today was 50 minutes. This includes time spent before the visit reviewing the chart, time spent during the visit, and time spent after the visit on documentation Orders: Referrals 2 Dermatology Referral H01.131 - Eczematous dermatitis of right upper eyelid, H01.134 - Eczematous dermatitis of left upper eyelid, L98.9 - Disorder of the skin and subcutaneous tissue, unspecified Medications: New 2 omeprazole 20 mg PO DAILY PRN 90 caps 0RF acid reflux Refilled 2 amlodipine 2.5 mg PO DAILY 90 tabs 1RF rosuvastatin 10 mg PO DAILY 90 tabs 1RF melatonin ER 10 mg PO DAILY 90 tabs 1RF propranolol ER 60 mg PO BEDTIME 90 caps 1RF fluticasone propionate 50 mcg/actuation 2 sprays intranasal BID 30 days 16 grams 8RF Patient Instructions: [address] [address], [place] [address] [facility] Please call to schedule your appt Refills on all meds sent today get labs done today to check your cholesterol use yellow mustard 1 teaspoon as needed for muscle cramps i sent in prescription for omeprazole to be used as needed for acid reflux or stomach upset. RTO 6 months Coding Level of Care Code Est Pt Level 5 (35857) Diagnoses Eczematous dermatitis, upper eyelids, bilateral H01.131; H01.134 Skin lesion of back L98.9 Primary insomnia F51.01 Insomnia type: primary Anxiety related tremor R25.1; F41.9 Leg cramps R25.2 Primary hypertension I10 Hypertension type: primary hypertension Mixed hyperlipidemia E78.2 Hyperlipidemia type: mixed hyperlipidemia
[2024-04-06 08:53] VITALS: BP 152/84; PULSE 78; RESP 16; TEMP 36.6; O2SAT 97
[2024-04-06 09:03] VITALS: BP 138/84
== END 2024-04-06 09:38 | disposition home or self-care (01) ==
PROVIDERS: PCP Nurse Practitioner Family; Visit Provider Nurse Practitioner Family
DX: H01.131 Eczematous dermatitis of right upper eyelid (principal); H01.134 Eczematous dermatitis of left upper eyelid; L98.9 Disorder of the skin and subcutaneous tissue, unspecified; F51.01 Primary insomnia; R25.1 Tremor, unspecified; F41.9 Anxiety disorder, unspecified; R25.2 Cramp and spasm; I10 Essential (primary) hypertension; E78.2 Mixed hyperlipidemia
CPT/HCPCS: 99215

== ENCOUNTER 2024-04-06 09:28 | Outpatient (REF) | payer MEDICARE, SELFPAY ==
[2024-04-06 12:23] LABS: Alanine Aminotransferase 44 U/L (0-31); Albumin Level 4.6 g/dL (3.5-5.0); Alkaline Phosphatase 72 U/L (39-117); Anion Gap 13 (12-20); Aspartate Amino Transferase 31 U/L (5-31); Bilirubin Total 0.4 mg/dL (0.0-1.0); Blood Urea Nitrogen 19 mg/dL (9-16); Calcium 9.9 mg/dL (8.4-10.2); Carbon Dioxide 23 mmol/L (22-29); Chloride 107 mmol/L (96-108); Cholesterol 153 mg/dL (<200); Estimated Glomerular Filt Rate > 60; Glucose Fasting 118 mg/dL (60-99); HDL Cholesterol 52 mg/dL (>40); LDL Cholesterol Calculated 62 mg/dL (<100); Sodium 139 mmol/L (135-145); Total Protein 7.5 g/dL (6.5-8.0); Triglycerides 196 mg/dL (<150)
== END 2024-04-06 09:29 | disposition home or self-care (01) ==
LOC: HO.WFDLDS 09:28
PROVIDERS: Visit Provider Nurse Practitioner Family
DX: E78.5 Hyperlipidemia, unspecified (principal)
CPT/HCPCS: 36415; 80053; 80061

== ENCOUNTER 2024-09-04 08:59 | Outpatient (AMB) | payer MEDICARE, SELFPAY ==
--- NOTE | 2024-09-04 09:03 | AM.OFFVISMDC ---
Intake Vital Signs 09/04/24 09:10 09/04/24 09:49 Height 5 ft 1.5 in Weight 170 lb BMI 31.6 BP 142/76 H 158/78 H Blood Pressure Location Rt brachial Rt brachial Position Sitting Sitting Respiration 13 Pulse 63 Pulse Source Pulse Oximeter Pulse Oximetry (%) 96 Oxygen Delivery Method Room Air Intake Visit Reasons: Annual Intake Note: awv visit Train Driver Required: No Allergies flu vaccine Allergy (Severe, Uncoded 09/04/24 09:29) Hives Medication List - Last Reconciled 09/04/24 by Monik Delgado, [facility]- amlodipine 2.5 mg PO DAILY cyclosporine 0.05% (Restasis) 1 drp ophthalmic (eye) Q12H 30 days desonide 0.05% 1 appl topical DAILY fluticasone propionate 50 mcg/actuation 2 sprays intranasal BID 30 days melatonin ER 10 mg PO DAILY omeprazole 20 mg PO DAILY PRN propranolol ER 60 mg PO BEDTIME psyllium husk (Metamucil) 1 tbsp PO DAILY 30 days rosuvastatin 10 mg PO DAILY Do you need a note to return to daycare/school/sports/work: No HPI HPI Comments History of Present Illness Details Here today for AWV & Complex Dz Mgmt Visit: The Medicare Annual Wellness Visit (AWV) is a yearly appointment with a health professional to identify health risks and help reduce them and to create or update a personalized prevention plan. During a Medicare AWV, health professionals should also review any current opioid prescriptions, detect any cognitive impairment, and establish or update medical and family history. 68-year-old female with HLD, anxiety, tremors, hypertension, chronic daily headaches, tinnitus, eczema, GERD , macular degeneration, sigmois diverticulosis, prediabetes Health Maintenance: See scanned preventative medicine assessment with personalized health plan and screening schedule. Mammogram 08/11/2022 normal DEXA 08/09/2020 normal (repeat 2024) Colonoscopy: 10/03/2019 @ [facility] repeat 10 years Upper Endo 09/2019: chronic gastritis PAP NA Vaccines: Tdap 2016, Declined all other vaccines AAA screen: NA EKG: done today WNL Specialists/[place] of Care: Derm first appt December 2024 [facility] 3 months ago ENT SurgHx: y FHx: y SocHx: y Visual Acuity: Done today, see results below; has macular, routine eye exams Hearing Screening: tinnitus active with ENT ACP: info provided today Dietary/Nutrition/Exercise Edu provided: Y During the course of the visit the patient was educated and counseled about appropriate screening and preventative services. Patient instructions were provided to the patient in written or electronic format. I have reviewed and verified the above information. c/o right shoulder pain, GERD, and issues related to possible prediabetes. The shoulder pain is noted around the shoulder blade, radiating with difficulty sleeping, as the patient wakes every 30 minutes due to discomfort. Past imaging for the shoulder was done years ago, revealing something ingrown, warranting a reevaluation through an MRI. The patient also reports significant GERD, characterized by stomach fullness and acid reflux despite intermittent use of omeprazole. A prior upper endoscopy was performed in 2019. Regarding prediabetes, A1c today 6.4. Additionally, the patient experiences ongoing sciatic pain and reports frequent awakenings and sleep difficulties, with plans for a sleep study. She previously cancelled this but wants to pursue @ this time. She has a history of essential hypertension and hyperlipidemia, managed with current medication regimens. Other concerns include tinnitus and allergies exacerbating her hearing difficulties and macular degeneration impacting her vision, with her last ophthalmic exam roughly three months prior. Health Maintenance - Screening for Diabetes: Fasting glucose level reported at 6.4, prediabetes consideration discussed. - Preventive Care: Encouraged engagement with a air transport professionals for dietary management of prediabetes - Sleep: Discussion of potential sleep study due to sleep disturbances and discontinuation of melatonin noted. - Allergies: Discussed possible allergy shots to manage seasonal allergies. - Physical Activity: Limitations due to sciatic pain acknowledged. Social History - Nutrition: Avoids bread and sugar for two weeks to manage blood sugar levels. - Physical Activity: Limited due to pain, notably sciatica. - Functional Status: Experiencing functional limitations due to ongoing pain and discomfort. Review of Systems - Musculoskeletal: Reports shoulder and sciatic pain. - Gastrointestinal: Reports acid reflux and stomach fullness. - Genitourinary: No specific complaints discussed. - Neurological: Reports tinnitus. - Ophthalmologic: Reports poor vision due to macular degeneration. - Otolaryngology: Reports difficulty hearing and tinnitus; noted seasonal allergies affecting symptoms. - Cardiovascular: Denies known cardiovascular symptoms beyond hypertension. - Dermatologic: Pending dermatology appointment in December. - Endocrine: Reports prediabetic glucose level. Physical Exam Awake alert oriented accompanied by her granddaughter Head atraumatic PERRLA, EOMI, no photophobia Neck full range of motion Regular rate and rhythm Lung sounds cTAB No hepatomegaly, abd soft, nontender, c/o pain right upper and lower worse lower when at home but not today No edema BLE Alert, smiling, cooperative and appropriate. Moves all extremities x4. No tremors noted during exam FROM R shoulder neurovasc intact pain in shoulder joint and into bicep w ROM normal strength Results - Labs: Fasting glucose level at 6.4, indicative of prediabetes. Plan - Right Shoulder Pain: Order MRI for further evaluation due to significant sleep disturbances and localization of pain. - GERD: Continue with omeprazole and consider lifestyle modifications. Plan for ultrasound to assess gallbladder. - Prediabetes: Referral to a air transport professionals for specialized dietary intervention and continue monitoring glycemic levels and risk factors. - Sciatica: Provide instruction for pain management, encourage mild activity as tolerated. - Tinnitus: Reinforce on managing with noise distraction given the absence of specific treatment. - Seasonal Allergies: Consideration for allergy shots; continue current allergy management. - Essential Hypertension: Monitor blood pressure, consider adjustment of antihypertensive treatment if indicated in two weeks. - Follow-up on hyperlipidemia medication adherence and periodic laboratory surveillance. - Macular Degeneration: Continue to follow up with ophthalmology. Patient was informed and verbally consented to the use of an ambient scribe for clinic note documentation during this visit. Discussion Notes During this visit, I had a comprehensive discussion with the patient about her current health concerns, including the persistent right shoulder pain, stomach issues due to GERD, and prediabetes management. The benefits and risks of pursuing an MRI for the shoulder were discussed given her sleeping difficulties. We covered the need for consistent medication adherence, particularly for her GERD and hypertension, and possible gallbladder imaging via ultrasound. I emphasized the importance of working with a air transport professionals for detailed meal planning to prevent progression to diabetes. Regarding hypertension, I discussed closely watching her blood pressure, with potential adjustments to her medication regimen after a follow-up evaluation. We considered options to manage tinnitus and agreed on noise distraction methods as a current strategy. Seasonal allergies continue to be a concern, with the potential for allergy shots explored as a future option. Lastly, follow-up care was discussed, ensuring she will return for a nurse visit to reassess blood pressure and another comprehensive exam in four to six months. Patient Instructions - Schedule and complete MRI of the right shoulder. - Continue omeprazole as directed, consult regarding any significant changes. - Maintain dietary restrictions and await air transport professionals contact for further guidance. - Return in two weeks for blood pressure recheck with the nursing team. - Perform recommended labs, including fasting glucose and lipid panel. - Arrange ultrasound for abdominal assessment, and follow mammogram schedule. - Utilize noise distraction techniques for tinnitus. - Monitor symptoms and seek care for exacerbating pain or emergence of acute symptoms. Recommend 2 week fu with NN for BP recheck and then 6 mo routine complex dz mgmt with me I will fu w her once results of imaging are available This note is constructed using voice recognition software. While every effort has been made to ensure accuracy in police officer crime prevention, still errors may have been included Sometimes, these errors may affect the content or meaning of the given sentence . An additional 45 minutes was spent addressing the problem(s) noted at todays visit. This includes time spent before the visit reviewing the chart, time spent during the visit, and time spent after the visit on documentation [facility] Medical History (Updated 09/04/24 @ 16:25 by Monik Delgado, SET DECORATOR-) Right shoulder pain Arthritis of hand Left hip pain Difficulty sleeping Right-sided back pain Macular degeneration Right sciatic nerve pain GERD (gastroesophageal reflux disease) Depression HLD (hyperlipidemia) Hypertension Surgical History History of bladder surgery History of back surgery Social History Housing: House Alcohol intake: never Patient Tobacco Use Status: Never used Tobacco e-Cigarette/Vaping Use: Never Used Second Hand Smoke Exposure: No service: No Current occupational status: retired Current occupational exposures/hazards: No Cognitive needs: No (cane/walker) Hearing needs: No Vision needs: No (glasses) Questionnaire Medicare Wellness Checkup What [age] What gender do you identify with?: female During the past 4 weeks, how much have you been bothered by emotional problems such as feeling anxious, depressed, irritable, sad or downhearted, and blue?: not at all During the past 4 weeks, has your physical & emotional health limited your social activities with family, friends, neighbors, or groups?: not at all During the past 4 weeks, how much bodily pain have you generally had?: mild pain During the past 4 weeks, was someone available to help you if you needed & wanted help?: yes, as much as I wanted During the past 4 weeks, what was the hardest physical activity you could do for at least 2 minutes?: light Can you get to places out of walking distance without help? (For eg., can you travel alone on buses, taxis or drive your car?): Yes Can you go shopping for groceries or clothes without someone's help?: Yes Can you prepare your own meals?: Yes Can you do your housework without help?: Yes Because of any health problems, do you need the help of another person with your personal care needs such as eating, bathing, dressing or getting around the house?: No Can you handle your own money without help?: Yes During the past 4 weeks, how would you rate your health in general?: good During the past 4 weeks how have things been going for you?: pretty well Are you having difficulties driving your car?: not applicable, I don't use a car Do you always fasten your seat belt when you are in a car?: yes, usually During past 4 weeks, have you been bothered by the following: never: Falling or dizzy when standing up, Sexual problems?, Trouble eating well?, Teeth or denture problems?, Problems using the telephone? and Tiredness or fatigue? Have you fallen 2 or more times in the past year?: No Are you afraid of falling?: No Are you a smoker?: no During the past 4 weeks, how many drinks of wine, beer, or other alcoholic beverages did you have?: no alcohol at all Do you exercise for about 20 minutes 3 or more times a week?: no, I usually do not exercise this much Have you been given information to help with the following?: no: Hazards in your house that might hurt you? and no: Keeping track of your medications? How often do you have trouble taking medicines the way you have been told to take them?: I always take medicine as prescribed How confident are you that you can control & manage most of your health problems?: very confident What is your race?: Other Activity of Daily Living Bathing - sponge bath, tub bath or shower: receives no assistance (gets in/out by self, if usual bathing means Dressing - getting clothes from closets & drawers, including inner/outer garments & fasteners.: gets clothes & gets completely dressed without help Toileting - going to the 'toilet room' for urine/bowel elimination & cleaning self/arranging clothes: goes to toilet room, cleans self, arranges clothes without help Transfer: moves in & out of bed and chair without help (may use support object) Continence: controls urination/bowel movements completely by self Feeding: feeds self without help Total Score: 0 Information obtained from: patient Using telephone: independent Traveling: independent Shopping: independent Preparing meals: independent Housework: independent Taking medicine: independent Managing money: independent PHQ-9 Over the last 2 weeks, how often have you been bothered by any of the following problems? 1. Little interest or pleasure in doing things: several days 2. Feeling down, depressed, or hopeless: several days 3. Trouble falling or staying asleep, or sleeping too much: more than half the days 4. Feeling tired or having little energy: more than half the days 5. Poor appetite or overeating: several days 6. Feeling bad about yourself - or that you are a failure or have let yourself or your family down: not at all 7. Trouble concentrating on things, such as reading the newspaper or watching television: several days 8. Moving or speaking so slowly that other people could have noticed. Or the opposite - being so fidgety or restless that you have been moving around a lot more than usual: not at all 9. Thoughts that you would be better off or of hurting yourself in some way: not at all Total score: 8 Depression Screening Interpretation: Negative Depression Screening Done: Yes 69070 - PHQ-9 Billing: Yes Source: Developed by Drs. Saad Ballard, Carolina Portillo, Aly Zee and colleagues, with an educational susan from [employer]. Physical Exam Vital Signs: Last Vital Signs Pulse 63 09/04/24 09:10 Resp 13 09/04/24 09:10 BP 158/78 H 09/04/24 09:49 Pulse Ox 96 09/04/24 09:10 Oxygen Delivery Method Room Air 09/04/24 09:10 BMI result Body Mass Index 31.6 Office Procedures EKG 40473-[id number], Complete Vision Screening 63510 - Vision Screening Results AMB Hemoglobin A1c AMB Hemoglobin A1c 6.4 % Last Edit by Baylee Diez MA on 09/04/24 09:23 Results Reviewed Results Reviewed: Laboratory Last Values Hgb A1c (Clinic) 6.4 % (4.0-6.0) H 09/04/24 09:17 Assessment & Plan Assessment & Plan (1) Encounter for subsequent annual wellness visit (AWV) in Medicare patient: Code(s): Z00.00 - Encounter for general adult medical examination without abnormal findings (2) GERD (gastroesophageal reflux disease): Code(s): K21.9 - Gastro-esophageal reflux disease without esophagitis Qualifiers: Esophagitis presence: with esophagitis Esophagitis bleeding: without hemorrhage Qualified Code(s): K21.00 - Gastro-esophageal reflux disease with esophagitis, without bleeding (3) Pre-diabetes: Comment: Lifestyle modifications and continue monitoring with repeat labs Code(s): R73.03 - Prediabetes (4) Daytime somnolence: Code(s): R40.0 - Somnolence (5) Hypertension: Comment: Cont meds amlodipine 2.5 mg daily. Monitor blood pressure daily at home. Continue to take her propranolol ER 60 mg p.o. at bedtime as this is working well for her anxiety, headaches, blood pressure. Code(s): I10 - Essential (primary) hypertension Qualifiers: Hypertension type: primary hypertension Qualified Code(s): I10 - Essential (primary) hypertension (6) HLD (hyperlipidemia): Comment: cont rosuvastatin 10 mg daily. Repeat lipid panel Code(s): E78.5 - Hyperlipidemia, unspecified Qualifiers: Hyperlipidemia type: mixed hyperlipidemia Qualified Code(s): E78.2 - Mixed hyperlipidemia (7) Low vitamin D level: Comment: November 2023 vitamin-D level within normal limits without supplementation. No need to supplement. Code(s): R79.89 - Other specified abnormal findings of blood chemistry (8) Mild anemia: Code(s): D64.9 - Anemia, unspecified (9) Right shoulder pain: Code(s): M25.511 - Pain in right shoulder Qualifiers: Chronicity: acute Qualified Code(s): M25.511 - Pain in right shoulder Plan . Orders: Orders AMB Hemoglobin A1c Today Z13.9 - Encounter for screening, unspecified AMB Vision Screening Today Z01.00 - Encounter for examination of eyes and vision without abnormal findings MM tomosynthesis screening BI Today Z12.31 - Encounter for screening mammogram for malignant neoplasm of breast RT home sleep study Today R40.0 - Somnolence Complete Blood Count no Diff Today D64.9 - Anemia, unspecified, R79.89 - Other specified abnormal findings of blood chemistry IRON PROFILE Today D64.9 - Anemia, unspecified, R79.89 - Other specified abnormal findings of blood chemistry US abdomen complete Today K21.9 - Gastro-esophageal reflux disease without esophagitis, R10.11 - Right upper quadrant pain Lipid Panel Today D64.9 - Anemia, unspecified, E78.2 - Mixed hyperlipidemia, I10 - Essential (primary) hypertension, R79.89 - Other specified abnormal findings of blood chemistry Comprehensive [place]. Panel Fast Today D64.9 - Anemia, unspecified, E78.2 - Mixed hyperlipidemia, I10 - Essential (primary) hypertension, R79.89 - Other specified abnormal findings of blood chemistry TSH reflex Free T4 Today D64.9 - Anemia, unspecified, E78.2 - Mixed hyperlipidemia, I10 - Essential (primary) hypertension, R79.89 - Other specified abnormal findings of blood chemistry Vitamin D 25-OH Total Today D64.9 - Anemia, unspecified, R79.89 - Other specified abnormal findings of blood chemistry MR shoulder RT wo con Today M25.511 - Pain in right shoulder AMB EKG-In Office Today Z13.6 - Encounter for screening for cardiovascular disorders Referrals Nutrition/Dietitian Referral R73.03 - Prediabetes Medications: Refilled omeprazole 20 mg PO DAILY PRN 90 caps 2RF acid reflux propranolol ER 60 mg PO BEDTIME 90 caps 1RF amlodipine 2.5 mg PO DAILY 90 tabs 1RF rosuvastatin 10 mg PO DAILY 90 tabs 1RF Quality Reporting (2019) Adult ([facility] 138/2/69) Smoking risk assessment performed?: Yes Patient Tobacco Use Status: Never used Tobacco Depression screening performed: Yes Screen Results: Yes Negative screen Recommended changes: weight reduction and physical activity Systolic BP not done?: No Diastolic BP not done?: No BMI screening not done: No BMI High - Follow Up: Yes High-plan (life style ) Sexual Activity Screening (CMS 153) Sexually active?: No Immunizations (CMS 147, 117) Annual Influenza Vaccine: No Flu Vaccine not done: patient reason Measles Antibody Test: No Mumps Antibody Test: No Rubella Antibody Test: No Varicella Antibody Test: No Anti Hepatitis A IgG Antigen test: No Anti Hepatitis B Virus Surface Ab test: No Fall Risk Screening (CMS 139) Last assessed Fall Risk: 09/04/24 Fall risk assessment: No Falls in past year Dementia Assessment (CMS 149) Cognitive assessment recorded: Yes (6 CIT 0/) Assessment of cognition with standardized tool: Yes Depression/Bipolar (159/160/161/177) PHQ-9: Total score: 8 Suicide risk assessment performed: Yes Psychotherapy: No Ophthalmol:Cataracts Visual Acuity (133) Visual acuity exam performed: Yes (see below ) Coding Level of Care Code Medicare Subsequent (G0439) Est Pt Level 5 (61724) Diagnoses Encounter for subsequent annual wellness visit (AWV) in Medicare patient Z00.00 Gastroesophageal reflux disease with esophagitis without hemorrhage K21.00 Esophagitis presence: with esophagitis Esophagitis bleeding: without hemorrhage Pre-diabetes R73.03 Daytime somnolence R40.0 Primary hypertension I10 Hypertension type: primary hypertension Mixed hyperlipidemia E78.2 Hyperlipidemia type: mixed hyperlipidemia Low vitamin D level R79.89 Mild anemia D64.9 Acute pain of right shoulder M25.511 Chronicity: acute CPT Codes Advance Care Planning - Time spent: 1-15 minutes, not on file ([id number]) EKG - CPT: 00414-[id number], Complete ([id number]) Vision Screening - Vision Screenin - Vision Screening ([id number]) Additional Codes PHQ-9 - 42243 - PHQ-9 Billing: Yes ([id number]) Advance Care Planning Advance Care Planning discussion: Exists, not on file Date of discussion: 09/04/24 Who was present: self granddtr Forms completed: Health Care Proxy, MOLST and Living will Time spent: 1-15 minutes, not on file Actual minutes spent: 5
[2024-09-04 09:10] VITALS: BP 142/76; PULSE 63; RESP 13; O2SAT 96; BMI 31.6
[2024-09-04 09:49] VITALS: BP 158/78
== END 2024-09-04 10:07 | disposition home or self-care (01) ==
PROVIDERS: PCP Nurse Practitioner Family; Visit Provider Nurse Practitioner Family
DX: Z00.00 Encounter for general adult medical examination without abnormal findings (principal); K21.00 Gastro-esophageal reflux disease with esophagitis, without bleeding; R73.03 Prediabetes; R40.0 Somnolence; I10 Essential (primary) hypertension; E78.2 Mixed hyperlipidemia; R79.89 Other specified abnormal findings of blood chemistry; D64.9 Anemia, unspecified; M25.511 Pain in right shoulder

== ENCOUNTER → 2024-09-04 08:59 | Outpatient (BNVA) | payer MEDICARE, SELFPAY | PROVIDERS: PCP Nurse Practitioner Family; Visit Provider Nurse Practitioner Family | DX: Z00.00 Encounter for general adult medical examination without abnormal findings (principal); K21.00 Gastro-esophageal reflux disease with esophagitis, without bleeding; R73.03 Prediabetes; I10 Essential (primary) hypertension; R40.0 Somnolence; E78.2 Mixed hyperlipidemia; R79.89 Other specified abnormal findings of blood chemistry; D64.9 Anemia, unspecified; M25.511 Pain in right shoulder | CPT/HCPCS: 83036; 93005; 96127; 99212 ==

== ENCOUNTER → 2024-09-21 10:00 | Outpatient (BNVA) | payer MEDICARE, SELFPAY | PROVIDERS: PCP Nurse Practitioner Family ==

== ENCOUNTER 2024-09-21 10:15 | Outpatient (REF) | payer MEDICARE, SELFPAY ==
[2024-09-21 14:40] LABS: Mean Corpuscular HGB Conc 33.3 g/dl (31.0-35.0); Mean Platelet Volume 11.4 fL (9.4-12.3); Platelet Count 203 X10*3/uL (160-400); Red Cell Distribution Width 13.9 % (11.0-16.0); White Blood Count 3.7 X10*3/uL (4.8-10.8)
[2024-09-21 14:56] LABS: Alanine Aminotransferase 34 U/L (0-31); Albumin Level 4.6 g/dL (3.5-5.0); Alkaline Phosphatase 56 U/L (39-117); Anion Gap 8 (12-20); Aspartate Amino Transferase 29 U/L (5-31); Bilirubin Total 0.4 mg/dL (0.0-1.0); Blood Urea Nitrogen 18 mg/dL (9-16); Calcium 9.5 mg/dL (8.4-10.2); Carbon Dioxide 26 mmol/L (22-29); Chloride 110 mmol/L (96-108); Cholesterol 124 mg/dL (<200); Estimated Glomerular Filt Rate > 60; Glucose Fasting 111 mg/dL (60-99); HDL Cholesterol 48 mg/dL (>40); Iron 61 mcg/dL (30-160); LDL Cholesterol Calculated 58 mg/dL (<100); Percent Iron Saturation 20 % (15-50); Potassium 4.2 mmol/L (3.3-5.1); Sodium 140 mmol/L (135-145); Total Iron Binding Capacity 305 mcg/dL (228-428); Total Protein 7.4 g/dL (6.5-8.0); Triglycerides 93 mg/dL (<150); Unsaturated Iron Binding 244 ug/dL
[2024-09-21 15:28] LABS: TSH reflex Free T4 1.03 uIU/mL (0.32-4.0); Vitamin D 25-OH Total 38.6 ng/mL (>30)
== END 2024-09-21 10:16 | disposition home or self-care (01) ==
LOC: HO.WFDLDS 10:15
PROVIDERS: Visit Provider Nurse Practitioner Family
DX: I10 Essential (primary) hypertension (principal); E78.2 Mixed hyperlipidemia; R79.89 Other specified abnormal findings of blood chemistry; D64.9 Anemia, unspecified
CPT/HCPCS: 36415; 80053; 80061; 82306; 83540; 84443; 85027

== ENCOUNTER 2024-10-17 07:44 | Outpatient (REF) | payer MEDICARE, SELFPAY ==
--- NOTE | ~2024-10-17 | US_ITS ---
EXAMINATION: US ABDOMEN HISTORY: R10.11 - Right upper quadrant pain TECHNIQUE: Real-time grayscale ultrasound imaging of the abdomen was performed and images were reviewed. COMPARISON: There are no prior studies for comparison. FINDINGS: Liver: The liver is normal in size, but demonstrates mildly increased echotexture, consistent with steatosis. No focal mass or intrahepatic biliary ductal dilatation is identified. Gallbladder and biliary tree: There are layering calculi in the gallbladder. There is no wall thickening or pericholecystic fluid. There is no sonographic Feng sign. The common bile duct is normal in caliber measuring 4 mm. Kidneys: The right kidney measures 11.9 cm in length. The left kidney measures 11.6 cm in length. There is a 9 mm cyst in the interpolar region of the left kidney. The kidneys are otherwise unremarkable, without evidence of solid masses, hydronephrosis, or calculi. Pancreas: The pancreatic head, neck, and body are unremarkable. The pancreatic tail is obscured by bowel gas. Spleen: The spleen is normal in size and contour, measuring 11.0 cm in length. Abdominal aorta and inferior vena cava: The visualized portions of the abdominal aorta and inferior vena cava are normal in caliber. There is no free fluid in the abdomen. US/US abdomen complete IMPRESSION: Mild hepatic steatosis. Cholelithiasis without evidence of acute cholecystitis. Electronically signed by: Saad Duenas MD 10/17/2024 09:09 AM POP
== END 2024-10-17 07:45 | disposition home or self-care (01) ==
LOC: HO.US 07:44
PROVIDERS: PCP Nurse Practitioner Family; Visit Provider Nurse Practitioner Family
DX: R10.11 Right upper quadrant pain (principal); K21.9 Gastro-esophageal reflux disease without esophagitis
CPT/HCPCS: 76700

== ENCOUNTER → 2024-10-17 07:47 | Outpatient (BNV) | payer MEDICARE, SELFPAY | PROVIDERS: PCP Nurse Practitioner Family; Visit Provider Radiology Diagnostic Radiology | DX: K80.20 Calculus of gallbladder without cholecystitis without obstruction (principal) | CPT/HCPCS: 76700 ==

== ENCOUNTER 2024-10-20 12:32 | Outpatient (AMB) | payer MEDICARE, SELFPAY ==
--- NOTE | 2024-10-20 13:33 | MHC.PC.OV ---
Intake Visit Reasons: f/u review test results. Allergies flu vaccine Allergy (Severe, Uncoded 10/20/24 13:36) Hives Medication List - Last Reconciled 10/20/24 by Monik Delgado [facility]- amlodipine 2.5 mg PO DAILY cyclosporine 0.05% (Restasis) 1 drp ophthalmic (eye) Q12H 30 days desonide 0.05% 1 appl topical DAILY fluticasone propionate 50 mcg/actuation 2 sprays intranasal BID 30 days melatonin ER 10 mg PO DAILY omeprazole 20 mg PO DAILY PRN propranolol ER 60 mg PO BEDTIME psyllium husk (Metamucil) 1 tbsp PO DAILY 30 days rosuvastatin 10 mg PO DAILY Tobacco use date assessed: 10/20/24 Fall risk assessment: No Falls in past year Last assessed Fall Risk: 10/20/24 Dental Screening Dental Screen Date: 10/20/24 Did you have a dental visit in the last 12 months?: Yes Did you have a dental problem in the last 6 months where you did not have access to dental care?: No Was dental information given to patient?: Patient has dentist HPI HPI Comments History of Present Illness Details 69-year-old female with HLD, anxiety, tremors, hypertension, chronic daily headaches, tinnitus, eczema, GERD , macular degeneration, sigmois diverticulosis, anemia, Mild hepatic steatosis. Cholelithiasis, L renal cyst Telehealth fu today: regarding her abdominal ultrasound and laboratory results. The abdominal ultrasound, conducted recently, revealed the presence of cholelithiasis . This condition, known as cholelithiasis, can manifest as stomach pain and potentially chest pain. This was done to eval RUQ pain. Additionally, the ultrasound highlighted hepatic steatosis, which is not a new finding for this patient but has been a chronic condition for some time, signifying the accumulation of fat in the liver tissue. A newly observed renal cyst on the left kidney was also reported, with no prior history of such a finding. Her labs showed anemia, for which she is taking iron supplements; however, the results of these interventions have been unsatisfactory. Despite continued supplementation, there has been no significant improvement in her anemia, which has resulted in constipation as a side effect of iron intake. At the current time she is sick w/ the flu. Results - Abdominal ultrasound: Presence of gallstones, hepatic steatosis, and a cyst on the left kidney. - Laboratory results: Anemia noted, possibly persistent despite ongoing vitamin supplementation. Labs 09/2024 anemia otherwise WNL Abd us 09/2024 Mild hepatic steatosis. Cholelithiasis without evidence of acute cholecystitis. here is a 9 mm cyst in the interpolar region of the left kidney. Discussion Notes I discussed the ultrasound findings with the patient's family, explaining the presence of gallstones and their potential symptoms, emphasizing the need for further evaluation by a surgeon to determine if surgical intervention is required. Additionally, I noted the chronic hepatic steatosis and recommended ongoing monitoring. A newly identified renal cyst warrants further examination by a digester cook, and I suggested arranging a consult with a kidney doctor to explore whether an ultrasound focusing on this area is necessary. Regarding the patient's anemia and related iron supplementation, I addressed the associated side effects and deliberated over the possibility of intravenous (IV) therapy as an alternative treatment. I approved the exploration of IV therapy in [id number] facilities as an option. Supportive care for flu sx. Edu on reasons to seek care. Patient Instructions - Monitor and manage gallbladder symptoms; follow up with the surgeon when scheduled. - Continue monitoring hepatic steatosis as previously advised. - Await appointment scheduling for the kidney specialist and follow through with consultations. - Continue anemia management with current iron supplements and evaluate the efficacy of alternative IV therapy if pursued. - Contact healthcare provider with any further questions or concerns. Plan - Initiate referral to a general surgeon for evaluation of gallstones to determine if surgical management is needed. - Refer to a digester cook for assessment of the renal cyst and consider dedicated renal ultrasound. - Maintain current management approach for hepatic steatosis with regular monitoring. - Continue iron supplementation for anemia and consider alternative treatments such as IV therapy if oral methods prove ineffective. - Advise deferring additional imaging studies like MRI and mammogram until the patient is feeling better. - Provide a follow-up plan after consultation with the relevant specialists. Patient was informed and verbally consented to the use of an ambient scribe for clinic note documentation during this visit. Total time spent caring for the patient today was 20 minutes. This includes time spent before the visit reviewing the chart, time spent during the visit, and time spent after the visit on documentation, reviewing laboratory results, diagnostic imaging, medications, performing a medically necessary evaluation, counseling on diagnoses, care coordination, ordering appropriate tests, ordering appropriate medications, review of tests performed by other providers, reporting test results with the patient, communication with other healthcare providers. [facility] Medical History (Updated 10/20/24 @ 13:46 by Monik Delgado [facility]) Right shoulder pain Arthritis of hand Left hip pain Difficulty sleeping Right-sided back pain Macular degeneration Right sciatic nerve pain GERD (gastroesophageal reflux disease) Depression HLD (hyperlipidemia) Hypertension Surgical History History of bladder surgery History of back surgery Social History Housing: House Alcohol intake: never Patient Tobacco Use Status: Never used Tobacco e-Cigarette/Vaping Use: Never Used Second Hand Smoke Exposure: No service: No Current occupational status: retired Current occupational exposures/hazards: No Cognitive needs: No (cane/walker) Hearing needs: No Vision needs: No (glasses) Questionnaire Thrive Questionnaire Date Thrive assessed: 12/08/23 TIFFANIE-7 AMB Questionnaire TIFFANIE-7 Date TIFFANIE - 7 assessed: 11/17/23 Source: Developed by Drs. Saad Ballard, Carolina Portillo, Aly Zee and colleagues, with an educational susan from [employer]. Physical exam (Primary Care) Tobacco/Smoking Status: Tobacco use Status Tobacco use date assessed 12/08/23 12/30/23 08:49 Patient Tobacco Use Status Never used Tobacco 09/04/24 16:26 e-Cigarette/Vaping Use Never Used 12/30/23 08:49 Thrive Assessment: Date of Thrive Assessment Date Thrive assessed 12/08/23 09/21/24 11:14 Telehealth Telehealth Telehealth Platform: [facility] Location of provider rendering services: practice address Location of patient: address on file Patient Identification confirmed using: Name, : Yes Telehealth method: voice only Patient verbally consented to treatment: Yes Patient verbally consented to billing insurance company: Yes Patient informed of any privacy concerns related to visit: Yes Minutes spent on Phone/Video with Pt.: 10 Coding Level of Care Code Tele Est Pt Level 3 (89355) Complex EM visit Add On G2211 Diagnoses Renal cyst, left N28.1 Calculus of gallbladder without cholecystitis without obstruction K80.20 Cholelithiasis location: gallbladder Cholecystitis presence: without cholecystitis Biliary obstruction: without biliary obstruction RUQ pain R10.11 Hepatic steatosis K76.0 Flu-like symptoms R68.89 Assessment & Plan Assessment & Plan (1) Renal cyst, left: Comment: [place] US 09/2024 Code(s): N28.1 - Cyst of kidney, acquired Category: Medical (2) Cholelithiasis: Code(s): K80.20 - Calculus of gallbladder without cholecystitis without obstruction Category: Medical Qualifiers: Cholelithiasis location: gallbladder Cholecystitis presence: without cholecystitis Biliary obstruction: without biliary obstruction Qualified Code(s): K80.20 - Calculus of gallbladder without cholecystitis without obstruction (3) RUQ pain: Code(s): R10.11 - Right upper quadrant pain Category: Medical (4) Hepatic steatosis: Code(s): K76.0 - Fatty (change of) liver, not elsewhere classified Category: Medical (5) Flu-like symptoms: Code(s): R68.89 - Other general symptoms and signs Plan . Orders: Referrals Nephrology Referral N28.1 - Cyst of kidney, acquired General Surgery Referral K80.20 - Calculus of gallbladder without cholecystitis without obstruction, M25.511 - Pain in right shoulder Medications: New multivitamin with iron 1 tab PO DAILY 120 tabs 0RF
--- OUTSIDE RECORDS SUMMARY | 2024-10-20 14:31 | XMS_ITS | Clinical Summary ---
Author Organization [facility] Address [address] [place] [address] Care Team Providers Care Plate Grinder Name Role Phone Roz Ramirez MD Primary Care Provider Unavailabl e Social History Tobacco Use Types Packs/Day Years Used Date Smoking Tobacco: Never Assessed Sex and Gender Information Value Date Recorded Sex Assigned at Not on file Gender Identity Not on file Sexual Orientation Not on file Job Start Date Occupation Industry Not on file Not on file Not on file Plan of Treatment Health Maintenance Due Date Last Done Comments COVID-19 Vaccine (#1) 04/16/1956 Depression Screening 1966 Preventative Health Evaluation 1972 Colon Cancer Screening (Colonoscopy) 1999 Breast Cancer Screening (Mammogram) 2004 Shingrix-Zoster Vaccine (1 of 2) 2004 Fall Risk Assessment 2019 Osteoporosis Screening (DEXA Scan) 2019 Pneumococcal Vaccine (1 of 1 - PCV) 2019 Influenza Vaccine (#1) 2024 DTap / Tdap / Td (2 - Td or Tdap) 06/07/2027 017 RSV Adult > 60+ Yrs or Pregn ant (1 - 1-dose 75+ series) 2029 Hepatitis C Screening Completed 06/07/2017 Hepatitis B Vaccines Aged Out No long er eligible based on patient's age to complete this topic RSV Ped < 20 months Aged Out No longe r eligible based on patient's age to complete this topic Care Teams Plate Grinder Relationship Specialty Start Date End Date Roz Ramirez MD PCP - General Internal Medicine 12/10/20
--- OUTSIDE RECORDS SUMMARY | 2024-10-20 14:32 | XMS_ITS | Clinical Summary ---
Author Organization [facility] Address [address] [place] [address] Care Team Providers Care Director Rehabilitation Program Name Role Phone Kelly Pritchett PA-C Primary Care Provider [phone] Source Comments PLEASE NOTE, if this patient is a minor, it may be UNLAWFUL to discuss sensitive information that is contained in these records (such as FAMILY PLANNING, MENTAL HEALTH or SUBSTANCE ABUSE) with the minor patient's parent or other person without the patient's specific authorization.[facility] Allergies No known active allergies Medications meloxicam (MOBIC) 7.5 mg tabletIndications:P rimary osteoarthritis involving multiple joints Take 1 Tab by mouth 2 (two) times daily 60 Tab 4 7 Active Active Problems Problem Noted Date Diagnosed Date Impaired glucose tolerance 03/05/2015 Hyperlipidemia 03/05/2015 Primary osteoarthritis involving multiple joints 03/05/[address] Cazares 03/05/2015 Immunizations Name Administration Dates Next Due TDAP 06/07/2017 Social History Tobacco Use Types Packs/Day Years Used Date Smoking Tobacco: Never Alcohol Use Standard Drinks/Week Comments No 0 (1 standard drink = 0.6 oz pur e alcohol) Social Connections Answer Date Recorded Social Connections and Isolation 0 05/21/2019 Financial Resource Strain Answer Date R ecorded Financial Resource Strain 0 2018 Stress Answer Date Recorded Stress 0 05/21/2019 Physical Activity Answer Date Recorded Physical Activity 0 05/21/2019 Food Insecurity Answer Date Recorded Food 0 05/21/2019 Transportation Needs Answer Date Record ed Transportation 0 05/21/2019 Housing Stability Answer Date Recorded Housing 0 05/21/2019 Safety and Environment Answer Date [place] rded Safety 0 05/21/2019 Utilities Answer Date Recorded Utilities 0 05/21/2019 Employment Answer Date Recorded Employment 0 05/21/2019 Comments No Sex and Gender Information Value Date Recorded Sex Assigned at Not on file Legal Sex Female 12:13 PM PDT Gender Identity Not on file Sexual Orientation Not on file Last Filed Vital Signs Vital Sign Reading Time Taken Comments Blood Pressure 120/70 06/07/2017 3:22 PM EDT Pulse 87 06/07/2017 3:22 PM EDT Temperature 36.6 ??C (97.8 ??F) 06/07/2017 3:22 PM ED T Respiratory Rate 16 06/07/2017 3:22 PM EDT Oxygen Saturation 98% 06/07/2017 3:22 PM EDT Inhaled Oxygen Concentration - - Weight 76.2 kg (168 lb) 06/07/2017 3:22 PM EDT Height 156 cm (5' 1.42 ) 03/05/2015 1:13 PM EDT Body Mass Index 31.31 03/05/2015 1:13 PM EDT Plan of Treatment Not on file Insurance HEALTH SAF[employer]Y NET MEDICAID Care Teams Director Rehabilitation Program Relationship Specialty Start Date End Date Kelly Pritchett PA-C [address] [place] [phone] PCP - General Internal Medicine 03/05/15
--- OUTSIDE RECORDS SUMMARY | 2024-10-20 14:32 | XMS_ITS | Clinical Summary ---
Author Organization [employer] Address [address] [facility] [address] [place] [address] Care Team Providers Care Room Worker Name Role Phone Unavailable Primary Care Provider Unavailabl e Allergies No known active allergies Medications amLODIPine (Norvasc) 5 MG tablet Take 5 mg by mouth in the morning. 11/08/2022 Active atorvastatin (Lipitor) 40 MG tablet Take 40 mg by mouth in the morning. 09/04/2022 Active Social History Tobacco Use Types Packs/Day Years Used Date Smoking Tobacco: Never Smokeless Tobacco: Never Alcohol Use Standard Drinks/Week Comments Never 0 (1 standard drink = 0.6 oz pur e alcohol) Comments Unknown Sex and Gender Information Value Date Recorded Sex Assigned at Female 12/22/2022 11:18 AM EDT Legal Sex Female 11:14 AM EDT Gender Identity Female 12/22/2022 11:18 AM EDT Sexual Orientation Something else 12/22/2022 11 :18 AM EDT Last Filed Vital Signs Vital Sign Reading Time Taken Comments Blood Pressure 137/75 01/04/2023 9:10 AM EDT Pulse 70 01/04/2023 9:10 AM EDT Temperature - - Respiratory Rate - - Oxygen Saturation - - Inhaled Oxygen Concentration - - Weight - - Height - - Body Mass Index - - Plan of Treatment Health Maintenance Due Date Last Done Comments CT Colonography 1954 Colonoscopy 1954 Colorectal Cancer Screening 1954 Depression Screening 1954 FIT DNA/Cologuard 1954 FIT 1954 FOBT 1954 Lipid Panel 1954 SDOH Screening 1954 Sigmoidoscopy 1954 Alcohol/Substance Use Screening 1966 Hepatitis C Screening 1972 Mammogram 1994 Zoster Vaccines (1 of 2) 2004 Pneumococcal Vaccine: 65+ Ye ars (1 of 1 - PCV) 2019 Dental Oral Exam 06/27/2023 12/24/2022 Dental Prophylaxis 07/07/2023 01/04/2023 Dental X-Ray: Bitewings 12/26/2023 12/24/2022 Tobacco Screening 01/05/2024 01/04/2023 COVID-19 Vaccine (1 - 2023-2 5 season) 2024 Influenza Vaccine (#1) 2024 Dental X-Ray: Full Mouth 12/25/2025 12/24/2022 DTaP/Tdap/Td Vaccines (2 - T d or Tdap) 06/07/2027 06/07/2017 RSV Patients and Pa tients Aged 60 years or older (1 - 1-dose 75+ series) 2029 HIB Vaccines Aged Out No longer eligi ble based on patient's age to complete this topic HPV Vaccines Aged Out No longer eligi ble based on patient's age to complete this topic Hepatitis A Vaccines Aged Out No long er eligible based on patient's age to complete this topic Hepatitis B Vaccines Aged Out No long er eligible based on patient's age to complete this topic IPV Vaccines Aged Out No longer eligi ble based on patient's age to complete this topic Meningococcal Vaccine Aged Out No wyatt lissy eligible based on patient's age to complete this topic RSV under 20 months Aged Out No longe r eligible based on patient's age to complete this topic Rotavirus Vaccines Aged Out No longer eligible based on patient's age to complete this topic Procedures Procedure Name Priority Date/Time Associated Diagnosis Comments PROPHYLAXIS - ADULT Routine 01/04/2023 9 :00 AM EDT Accretions on teeth DIAGNOSTIC - DIAGNOSTIC IMAGING - INTRAORAL - COMPREHENSIVE SERIES OF RADIOGRAPHIC IMAGES Routine 12/24/2022 2:00 PM EDT COMPREHENSIVE ORAL EVALUATION - NEW OR ESTABLISHED PATIENT Routine 12/24/2022 2:00 PM EDT from Last 3 Months or Most Recently Relevant to Health Maintenance Insurance [address] [place] [address] [facility] ST[facility]
== END 2024-10-20 17:05 | disposition home or self-care (01) ==
LOC: HO.HMCFM 12:32
PROVIDERS: PCP Nurse Practitioner Family; Visit Provider Nurse Practitioner Family
DX: N28.1 Cyst of kidney, acquired (principal); K80.20 Calculus of gallbladder without cholecystitis without obstruction; R10.11 Right upper quadrant pain; K76.0 Fatty (change of) liver, not elsewhere classified; R68.89 Other general symptoms and signs

== ENCOUNTER → 2024-10-25 10:37 | Outpatient (REF) | payer MEDICARE, SELFPAY ==
--- OUTSIDE RECORDS SUMMARY | 2024-10-25 12:43 | XMS_ITS | Clinical Summary ---
Author Organization [facility] Address [address] [place] [address] Care Team Providers Care Grey Goods Examiner Name Role Phone Roz Ramirez MD Primary [...] age to complete this topic Care Teams Grey Goods Examiner Relationship Specialty Start Date End Date Roz Ramirez MD PCP - General Internal Medicine 12/10/20
--- OUTSIDE RECORDS SUMMARY | 2024-10-25 12:43 | XMS_ITS | Clinical Summary ---
Author Organization [employer] Address [address] [facility] [address] [place] [address] Care Team Providers Care Instructor Knitting Name Role Phone Unavailable Primary Care Provider [...] Vaccines (1 of 2) 2004 Pneumococcal Vaccine: 50+ Ye ars (1 of 1 - PCV) [...] Relevant to Health Maintenance Insurance [address] [place] [address] [facility]
--- OUTSIDE RECORDS SUMMARY | 2024-10-25 12:43 | XMS_ITS | Clinical Summary ---
Author Organization [facility] Address [address] [place] [address] Care Team Providers Care Business Account Specialist Name Role Phone Kelly Pritchett PA-C Primary Care Provider [phone] Source Comments PLEASE NOTE, if this patient [...] Insurance HEALTH SAFETY NET MEDICAID Care Teams Business Account Specialist Relationship Specialty Start Date End Date Kelly Pritchett PA-C [address] [place] [phone] PCP - General Internal Medicine 03/05/15
== END ==
LOC: HO.SL 10:37
PROVIDERS: PCP Nurse Practitioner Family; Visit Provider Nurse Practitioner Family
DX: R40.0 Somnolence (principal); R06.83 Snoring
CPT/HCPCS: 95806

== ENCOUNTER 2024-11-06 11:30 | Outpatient (AMB) | payer MEDICARE, SELFPAY ==
--- NOTE | 2024-11-06 11:37 | HO.NEPHOV_ITS ---
Vital Signs 11/06/24 11:39 Height 5 ft 1.5 in Weight 162 lb BMI 30.1 BP 126/80 Blood Pressure Location Rt brachial Position Sitting Pulse 74 Pulse Source Pulse Oximeter Pulse Oximetry (%) 98 Oxygen Delivery Method Room Air Intake Visit Reasons: INP: Cyst of kidney/ Conf Vertical Punch Operator Required: No Accompanied by: Daughter Allergies flu vaccine Allergy (Severe, Uncoded 10/20/24 13:36) Hives HPI Comments Details: I had the pleasure of seeing Kyara from [facility] who is a 69-year-old female with H/O hypertension and renal cyst. She has been having GI symptoms and underwent an abdominal USS which showed Cholelithiasis & renal cyst 9 mm in size at the the interpolar region of the left kidney. She does not have any unintentional weight loss, hematuria, flank pain, night sweats, proteinuria, renal dysfunction or renal calculi. She feels well. She has no edema or any o ther complaints at the time of this office visit [facility] Medical History (Updated 11/06/24 @ 13:00 by Shaw Domniguez MD) Right shoulder pain Arthritis of hand Left hip pain Difficulty sleeping Right-sided back pain Macular degeneration Right sciatic nerve pain GERD (gastroesophageal reflux disease) Depression HLD (hyperlipidemia) Hypertension Surgical History History of bladder surgery History of back surgery Social History Housing: House Alcohol intake: never Patient Tobacco Use Status: Never used Tobacco e-Cigarette/Vaping Use: Never Used Second Hand Smoke Exposure: No service: No Current occupational status: retired Current occupational exposures/hazards: No Cognitive needs: No (cane/walker) Hearing needs: No Vision needs: No (glasses) Review of Systems Const All systems reviewed & are unremarkable except as noted in HPI and below Physical Exam Vital Signs: Last Vital Signs Pulse 74 11/06/24 11:39 BP 126/80 11/06/24 11:39 Pulse Ox 98 11/06/24 11:39 Oxygen Delivery Method Room Air 11/06/24 11:39 BMI result Body Mass Index 30.1 Const General: comfortable and no acute distress Orientation/consciousness: patient oriented x3 HEENT Head: Yes normocephalic Mouth: Normal oral and palatal mucosa present Eyes EOM: EOMs intact bilaterally Neck Neck: Yes supple Resp Auscultation: clear to auscultation bilaterally Cardio Jugular venous distension: no JVD Rate: regular rate GI Palpation (GI): Soft to palpation Auscultation: normal bowel sounds General: Yes no CVA tenderness Back/Spine/Pelvis Back: no CVA tenderness Skin General skin exam: no rashes or lesions noted Neuro General: patient oriented x3 and moves all extremities Extrem General: Yes no pedal edema Results Reviewed Nephrology Results: Hgb 12.0 g/dl (12.0-16.0) 09/21/24 WBC 3.7 X10*3/uL (4.8-10.8) L 09/21/24 Plt Count 203 X10*3/uL (160-400) 09/21/24 Sodium 140 mmol/L (135-145) 09/21/24 Potassium 4.2 mmol/L (3.3-5.1) 09/21/24 Chloride 110 mmol/L (96-108) H 09/21/24 Carbon Dioxide 26 mmol/L (22-29) 09/21/24 BUN 18 mg/dL (9-16) H 09/21/24 Creatinine 0.69 mg/dL (0.5-1.4) 09/21/24 Calcium 9.5 mg/dL (8.4-10.2) 09/21/24 Assessment & Plan Assessment & Plan (1) Renal cyst, left: Comment: ABD US 09/2024 Code(s): N28.1 - Cyst of kidney, acquired Category: Medical (2) Hypertension: Code(s): I10 - Essential (primary) hypertension Category: Medical Qualifiers: Hypertension type: primary hypertension Qualified Code(s): I10 - Essential (primary) hypertension Plan Left kidney cyst at the interpolar region Renal function normal; No H/O hematuria/proteinuria BP well controlled on medications; No H/O renal calculi No family H/O renal cyst/ ESRD/ renal transplantation Low sodium diet; Needs to see a surgeon for cholelithiasis No changes made to her medication regimen Shall do CT kidneys in a year time All questions answered; F/U appointment given Coding Level of Care Code New Pt Level 4 (60545) Diagnoses Renal cyst, left N28.1 Primary hypertension I10 Hypertension type: primary hypertension
[2024-11-06 11:39] VITALS: BP 126/80; PULSE 74; O2SAT 98; BMI 30.1
--- OUTSIDE RECORDS SUMMARY | 2024-11-06 12:47 | XMS_ITS | Clinical Summary ---
Author Organization [facility] Address [address] [place] [address] Care Team Providers Care Music Professor Name Role Phone Roz Ramirez MD Primary [...] age to complete this topic Care Teams Music Professor Relationship Specialty Start Date End Date Roz Ramirez MD PCP - General Internal Medicine 12/10/20
--- OUTSIDE RECORDS SUMMARY | 2024-11-06 12:47 | XMS_ITS | Clinical Summary ---
Author Organization [employer] Address [address] [facility] [address] [place] [address] Care Team Providers Care Breakfast Supervisor Name Role Phone Unavailable Primary Care Provider [...] 1966 Hepatitis C Screening 1972 Mammogram 1994 Pneumococcal Vaccine: 50+ Ye ars (1 of 1 - PCV) 2004 Zoster Vaccines (1 of 2) 2004 Dental Oral Exam 06/27/2023 12/24/2022 Dental Prophylaxis [...] Relevant to Health Maintenance Insurance [address] [place] [address] [facility] MEDICAID STAND ADULT
== END 2024-11-06 12:08 | disposition home or self-care (01) ==
PROVIDERS: PCP Nurse Practitioner Family; Referring Provider Nurse Practitioner Family; Visit Provider Internal Medicine Nephrology
DX: N28.1 Cyst of kidney, acquired (principal); I10 Essential (primary) hypertension
CPT/HCPCS: 99204

== ENCOUNTER → 2024-11-06 11:30 | Outpatient (BNVA) | payer MEDICARE, SELFPAY | PROVIDERS: PCP Nurse Practitioner Family; Referring Provider Nurse Practitioner Family; Visit Provider Internal Medicine Nephrology | DX: N28.1 Cyst of kidney, acquired (principal); I10 Essential (primary) hypertension | CPT/HCPCS: 99202 ==

== ENCOUNTER 2024-11-14 11:24 | Outpatient (AMB) | payer MEDICARE, SELFPAY ==
--- NOTE | 2024-11-14 11:31 | A.OFFVIS_ITS ---
Intake Visit Reasons: gallstones Intake Note: Patient referred by Monik Delgado for Calculus of gallbladder without cholecystitis without obstruction. Patient c/o: Sharp pain on RUQ. Hx acid reflux, nausea, vomiting. CT Abd: 10-17-2024 Machine Design Teacher Required: No Accompanied by: grand daughter Luz Marina Allergies flu vaccine Allergy (Severe, Uncoded 11/14/24 11:36) Hives HPI Comments Details: Patient presents with a granddaughter. She has had a several year history of right upper quadrant/epigastric discomfort. She finally had this worked up by her medical doctor who performed an ultrasound and this demonstrated significant cholelithiasis. Patient was never been jaundiced before. She otherwise tolerating a diet. She has regular bowel habits. She is unclear whether she has fatty food intolerance or not. Chart was reviewed and patient evaluated [facility] Medical History Right shoulder pain Arthritis of hand Left hip pain Difficulty sleeping Right-sided back pain Macular degeneration Right sciatic nerve pain GERD (gastroesophageal reflux disease) Depression HLD (hyperlipidemia) Hypertension Surgical History History of bladder surgery History of back surgery Social History Housing: House Alcohol intake: never Patient Tobacco Use Status: Never used Tobacco e-Cigarette/Vaping Use: Never Used Second Hand Smoke Exposure: No service: No Current occupational status: retired Current occupational exposures/hazards: No Cognitive needs: No (cane/walker) Hearing needs: No Vision needs: No (glasses) Physical Exam Eyes Other: Anicteric Chest Other: Chest breath sounds bilaterally, HS 1 in 2 GI Other: Abdomen corpulent, soft, benign. No scars. Quality Reporting (2019) Adult ([facility] 138/11/18/68) Smoking risk assessment performed?: Yes Patient Tobacco Use Status: Never used Tobacco Assessment & Plan Assessment & Plan (1) Cholelithiasis: Code(s): K80.20 - Calculus of gallbladder without cholecystitis without obstruction Category: Surgical Qualifiers: Cholelithiasis location: gallbladder Cholecystitis presence: without cholecystitis Biliary obstruction: without biliary obstruction Qualified Code(s): K80.20 - Calculus of gallbladder without cholecystitis without obstruction Plan I discussed with the patient therapeutic options which are conservative therapy or laparoscopic possible open cholecystectomy. Patient would like to be treated conservatively at this time. She will follow-up in the few months time or should her symptoms progress, she will contact me. At present, she does not wished to pursue any surgical intervention. All questions answered. Patient will otherwise follow-up p.r.n.. Coding Level of Care Code New Pt Level 4 (87217) Diagnoses Calculus of gallbladder without cholecystitis without obstruction K80.20 Cholelithiasis location: gallbladder Cholecystitis presence: without cholecystitis Biliary obstruction: without biliary obstruction
--- OUTSIDE RECORDS SUMMARY | 2024-11-14 12:41 | XMS_ITS | Clinical Summary ---
Author Organization [facility] Address [address] [place] [address] Care Team Providers Care Senior Oracle Database Administrator Name Role Phone Kelly Pritchett PA-C Primary Care Provider [phone] Source Comments PLEASE NOTE, if this patient [...] Insurance HEALTH SAFETY NET MEDICAID Care Teams Senior Oracle Database Administrator Relationship Specialty Start Date End Date Kelly Pritchett PA-C [address] [place] [address] PCP - General Internal Medicine 03/05/15
--- OUTSIDE RECORDS SUMMARY | 2024-11-14 12:41 | XMS_ITS | Clinical Summary ---
Author Organization [employer] Address [address] [facility] [address] [place] [address] Care Team Providers Care Owner Operator Tanker Truck Driver Name Role Phone Unavailable Primary Care Provider [...] 9 :00 AM EDT Accretions on teeth INTRAORAL - COMPLETE SERIES OF RADIOGRAPHIC IMAGES Routine 12/24/2022 2:00 PM EDT COMPREHENSIVE ORAL EVALUATION - NEW OR ESTABLISHED PATIENT Routine 12/24/2022 2:00 PM EDT from Last 3 Months or Most Recently Relevant to Health Maintenance Insurance [address] [place] [address] D[facility]AL-[facility] MEDICAID STAND ADULT
--- OUTSIDE RECORDS SUMMARY | 2024-11-14 12:41 | XMS_ITS | Clinical Summary ---
Author Organization [facility] Address [address] [place] [address] Care Team Providers Care Hr Clerk Name Role Phone Roz Ramirez MD Primary [...] age to complete this topic Care Teams Hr Clerk Relationship Specialty Start Date End Date Roz Ramirez MD PCP - General Internal Medicine 12/10/20
== END 2024-11-14 12:06 | disposition home or self-care (01) ==
LOC: HO.HGS 11:24
PROVIDERS: PCP Nurse Practitioner Family; Visit Provider Surgery
DX: K80.20 Calculus of gallbladder without cholecystitis without obstruction (principal)
CPT/HCPCS: 99204

== ENCOUNTER → 2024-11-14 11:24 | Outpatient (BNVA) | payer MEDICARE, SELFPAY | PROVIDERS: PCP Nurse Practitioner Family; Visit Provider Surgery | DX: K80.20 Calculus of gallbladder without cholecystitis without obstruction (principal); K21.9 Gastro-esophageal reflux disease without esophagitis | CPT/HCPCS: 99202 ==

== ENCOUNTER 2024-12-01 09:51 | Outpatient (REF) | payer MEDICARE, SELFPAY ==
--- OUTSIDE RECORDS SUMMARY | 2024-12-01 10:48 | XMS_ITS | Clinical Summary ---
Author Organization [facility] Address [address] [place] [address] Care Team Providers Care Pneumatic System Conveyor Operator Name Role Phone Roz Ramirez MD Primary [...] age to complete this topic Care Teams Pneumatic System Conveyor Operator Relationship Specialty Start Date End Date Roz Ramirez MD PCP - General Internal Medicine 12/10/20
--- OUTSIDE RECORDS SUMMARY | 2024-12-01 10:48 | XMS_ITS | Clinical Summary ---
Author Organization [employer] Address [address] [facility] [address] [place] [address] Care Team Providers Care Educational Technology Coordinator Name Role Phone Unavailable Primary Care Provider [...] Relevant to Health Maintenance Insurance [address] [place] [address] DENTAL-[facility] MEDICAID STAND ADULT
--- OUTSIDE RECORDS SUMMARY | 2024-12-01 10:48 | XMS_ITS | Clinical Summary ---
Author Organization [facility] Address [address] [place] [address] Care Team Providers Care Beater Room Helper Name Role Phone Kelly Pritchett PA-C Primary Care Provider [phone] Source Comments PLEASE NOTE, if this patient [...] Insurance HEALTH SAFETY NET MEDICAID Care Teams Beater Room Helper Relationship Specialty Start Date End Date Kelly Pritchett PA-C [address] [place] [address] PCP - General Internal Medicine 03/05/15
== END 2024-12-01 09:52 | disposition home or self-care (01) ==
LOC: HO.MAMMO 09:51
PROVIDERS: PCP Nurse Practitioner Family; Visit Provider Nurse Practitioner Family
DX: Z12.31 Encounter for screening mammogram for malignant neoplasm of breast (principal)
CPT/HCPCS: 77063; 77067

== ENCOUNTER → 2024-12-01 10:15 | Outpatient (BNV) | payer MEDICARE, SELFPAY | PROVIDERS: PCP Nurse Practitioner Family; Visit Provider Internal Medicine | DX: Z12.31 Encounter for screening mammogram for malignant neoplasm of breast (principal) | CPT/HCPCS: 77063; 77067 ==

== ENCOUNTER 2024-12-14 13:22 | Outpatient (AMB) | payer MEDICARE, SELFPAY ==
--- NOTE | 2024-12-14 13:19 | A.OFFPC_ITS ---
Intake Visit Reasons: discuss the lab results Intake Note: telehaleth follow up on labs Fruit Farmer Required: No Allergies flu vaccine Allergy (Severe, Uncoded 12/14/24 14:58) Hives Medication List - Last Reconciled 12/14/24 by ADRYAN AminP- amlodipine 2.5 mg PO DAILY cyclosporine 0.05% (Restasis) 1 drp ophthalmic (eye) Q12H 30 days fluticasone propionate 50 mcg/actuation 2 sprays intranasal BID 30 days melatonin ER 10 mg PO DAILY omeprazole 20 mg PO DAILY PRN propranolol ER 60 mg PO BEDTIME rosuvastatin 10 mg PO DAILY Tobacco use date assessed: 12/14/24 Fall risk assessment: No Falls in past year Last assessed Fall Risk: 12/14/24 Dental Screening Dental Screen Date: 12/14/24 Did you have a dental visit in the last 12 months?: Yes Did you have a dental problem in the last 6 months where you did not have access to dental care?: No Was dental information given to patient?: Patient has dentist HPI HPI Comments History of Present Illness Details 69-year-old female with HLD, anxiety, tr emors, hypertension, chronic daily headaches, tinnitus, eczema, GERD , macular degeneration, sigmois diverticulosis, anemia, Mild hepatic steatosis, Cholelithiasis, L renal cyst History of Present Illness - The patient is a 69 year old female wi th discussion of mammogram results, decision-making regarding potential gallstone surgery, management of iron deficiency, and sleep disturbances. Wants to review mammo results - 11/2024 WNL Gallstones - met w/ surgeon. Watch and wait vs surgery. She opted for watch and wait. Wants to know if there is dietary support for this. She has fatty liver and was referred to downstairs maid but appt was cancelled. I provided this info to her today and she is scheduled for December 2024. She also has Iron def anemia. Was taking Iron po but did not feel like this worked. She sought consult for IV Iron but was told she was not a candidate. she would like rx for oral iron to be sent in. Needs a refill on melatonin. 10mg was too much. wants 3mg. wonders about getting gut bacteria checked Results reviewed Mammo 11/2024 WNL Renal 11/06/[address] of kidneys in 1 year Gen Surg 11/14/24 surgery vs watch and wait pt opted for watch and wait Assessment and Plan 1. Gallstones: Patient prefers non-surgi naren management due to lack of severe symptoms. Agreed to monitor with symptom observation. 2. Fatty Liver Disease: Patient's fatty liver disease requires dietary management. Shared armored car messenger contact details for follow-up on nutritional consultation. 3. Low Iron Levels: Prescribed oral mult ivitamin with iron to address deficiency. Advised dietary modifications to enhance iron absorption. 4. Sleep Disturbance: Prescribed 3 mg me latonin er for improved sleep management, per patient's experience preference over 5 mg dose. 5. Gastrointestinal Symptoms: Patient ex plored options for gut health; directed to consider wellness center for non-covered testing. Telehealth Attestation Documentation of this visit was conducted through a telehealth format, with patient-provided history and discussed interventions via phone conversation. The patient has been explained that this is an interactive (audio/video) telehealth encounter and what that consists of. The patient understands and wishes to proceed. Plair platform was used. Total time spent caring for the patient today was 27 minutes. This includes time spent before the visit reviewing the chart, time spent during the visit, and time spent after the visit on documentation, reviewing laboratory results, diagnostic imaging, medications, performing a medically necessary evaluation, counseling on diagnoses, care coordination, ordering appropriate tests, ordering appropriate medications, review of tests performed by other providers, reporting test results with the patient, communication with other healthcare providers. [facility] Medical History Right shoulder pain Arthritis of hand Left hip pain Difficulty sleeping Right-sided back pain Macular degeneration Right sciatic nerve pain GERD (gastroesophageal reflux disease) Depression HLD (hyperlipidemia) Hypertension Surgical History History of bladder surgery History of back surgery Social History Housing: House Alcohol intake: never Patient Tobacco Use Status: Never used Tobacco e-Cigarette/Vaping Use: Never Used Second Hand Smoke Exposure: No service: No Current occupational status: retired Current occupational exposures/hazards: No Cognitive needs: No (cane/walker) Hearing needs: No Vision needs: No (glasses) Questionnaire Thrive Questionnaire Date Thrive assessed: 09/04/24 TIFFANIE-7 AMB Questionnaire TIFFANIE-7 Date TIFFANIE - 7 assessed: 11/17/23 Source: Developed by Drs. Saad Ballard, Carolina Portillo, Aly Zee and colleagues, with an educational susan from [employer]. Physical exam (Primary Care) Tobacco/Smoking Status: Tobacco use Status Tobacco use date assessed 12/14/24 12/14/24 13:20 Patient Tobacco Use Status Never used Tobacco 12/14/24 13:20 e-Cigarette/Vaping Use Never Used 12/14/24 13:20 Thrive Assessment: Date of Thrive Assessment Date Thrive assessed 09/04/24 12/14/24 13:20 Telehealth Telehealth Telehealth Platform: Telephone Location of provider rendering services: practice address Location of patient: address on file Patient Identification confirmed using: Name, : Yes Telehealth method: voice only Patient verbally consented to treatment: Yes Patient verbally consented to billing insurance company: Yes Patient informed of any privacy concerns related to visit: Yes Minutes spent on Phone/Video with Pt.: 17 Results Reviewed Results Reviewed: [facility] [address] [place] [address] Mammography Report Signed Patient: Kyara Moore MR#: [id number] : 1955 Acct:[id number] Age/Sex: 69 / F ADM Date: 12/01/24 Loc: HO.MAMMO Attending Dr: Monik LEW Ordering Physician: Monik Delgado Results: 1Negative Date of Service: 12/01/24 Follow Up: 1 Year From Original Mammogram Procedure(s): MM tomosynthesis screening BI Accession Number(s): [id number] cc: Monik Delgado~ EXAMINATION: MM SCREENING DIGITAL BREAST TOMOSYNTHESIS, BILATERAL CLINICAL INFORMATION: Screening. Asymptomatic. COMPARISON: Mammography: Comparison is made with available priors TECHNIQUE: Digital breast mammography with tomosynthesis is performed in both the craniocaudal and mediolateral oblique views along with computer-aided detection (CAD). FINDINGS: There are scattered areas of fibroglandular density (ACR BI-RADS breast composition Category b). There are no significant masses, abnormal calcifications, or other abnormalities. MM/MM tomosynthesis screening BI IMPRESSION: No mammographic evidence of malignancy. ASSESSMENT: BI-RADS BI-RADS 1 - Negative RECOMMENDATION: Routine annual mammography screening. 1 year F/U This examination should not preclude the clinical evaluation of a suspicious palpable abnormality. This patient's information was entered into a reminder system with a target due date for their next mammogram. Electronically signed by: Teagan Riggins DO 12/10/2024 04:58 PM EDT RP Dictated By: Teagan Riggins DO Signed By: <Electronically signed by Teagan Riggins DO in OV> 12/10/24 1658 Coding Level of Care Code Tele Est Pt Level 3 (33948) Complex EM visit Add On G2211 Diagnoses Calculus of gallbladder without cholecystitis without obstruction K80.20 Biliary obstruction: without biliary obstruction Cholecystitis presence: without cholecystitis Cholelithiasis location: gallbladder Renal cyst, left N28.1 Hepatic steatosis K76.0 Mixed hyperlipidemia E78.2 Hyperlipidemia type: mixed hyperlipidemia Normocytic anemia D64.9 Assessment & Plan Assessment & Plan (1) Cholelithiasis: Comment: Abd us 09/2024 Mild hepatic steatosis. Cholelithiasis without evidence of acute Gen Surg 11/14/24 surgery vs watch and wait pt opted for watch and wait Code(s): K80.20 - Calculus of gallbladder without cholecystitis without obstruction Category: Surgical Qualifiers: Biliary obstruction: without biliary obstruction Cholecystitis presence: without cholecystitis Cholelithiasis location: gallbladder Qualified Code(s): K80.20 - Calculus of gallbladder without cholecystitis without obstruction (2) Renal cyst, left: Comment: ABD US 09/2024 Renal 11/06/[address] of kidneys in 1 year Code(s): N28.1 - Cyst of kidney, acquired Category: Medical (3) Hepatic steatosis: Code(s): K76.0 - Fatty (change of) liver, not elsewhere classified Category: Medical (4) HLD (hyperlipidemia): Comment: cont rosuvastatin 10 mg daily. Repeat lipid panel Code(s): E78.5 - Hyperlipidemia, unspecified Category: Medical Qualifiers: Hyperlipidemia type: mixed hyperlipidemia Qualified Code(s): E78.2 - Mixed hyperlipidemia (5) Normocytic anemia: Comment: Labs from November of 2023 within normal limits without supplementation. Code(s): D64.9 - Anemia, unspecified Category: Medical Plan . Medications: New 2 multivitamin with iron 1 tab PO DAILY 90 tabs 2RF melatonin ER 3 mg PO .at night PRN 90 tabs 2RF insomnia 90 days Discontinued melatonin ER Discontinued Reason: Patient no longer taking 10 mg PO DAILY 90 tabs 1RF
== END 2024-12-14 17:05 | disposition home or self-care (01) ==
LOC: HO.HMCFM 13:22
PROVIDERS: PCP Nurse Practitioner Family; Visit Provider Nurse Practitioner Family
DX: K80.20 Calculus of gallbladder without cholecystitis without obstruction (principal); N28.1 Cyst of kidney, acquired; K76.0 Fatty (change of) liver, not elsewhere classified; E78.2 Mixed hyperlipidemia; D64.9 Anemia, unspecified

== ENCOUNTER 2025-01-08 10:19 | Outpatient (AMB) | payer MEDICARE, SELFPAY ==
--- NOTE | 2025-01-08 10:41 | A.OFFVIS_ITS ---
VS Expanded 01/08/25 10:42 01/22/25 21:06 Height 5 ft 1.5 in 5 ft 1.5 in Weight 168 lb 10.458 oz 168 lb BMI 31.3 31.2 Intake Visit Reasons: Prediabetes Allergies flu vaccine Allergy (Severe, Uncoded 12/14/24 14:58) Hives Nutrition Presentation Details: Pt presents for MNT for Pre DM. Pt was referred by PCP Food frequency fruits 1-2/d ve-2 /d dairy 1-2/d fish 1x/wk beverages: water/milk physical activity : 3 times a week walk etoh/smoking denies Takes MVI with iron BS Monitoring Most Recent Diabetes Results: No Data to Display EBB-Rtciyzi-Eb.Jeor Equation Height: 5 ft 1.5 in Weight: 168 lb Resting Metabolic Rate: 1232.19 Calculated Activity Level: Mild Activity Calories Needed to Maintain Weight: 1694.26 Diagnosis Nutrition problem #1: overweight/obesity As related to (etiology) #1: diagnosis As evidenced by (sign/symptom) #1: abnormal lab values [facility] Medical History Right shoulder pain Arthritis of hand Left hip pain Difficulty sleeping Right-sided back pain Macular degeneration Right sciatic nerve pain GERD (gastroesophageal reflux disease) Depression HLD (hyperlipidemia) Hypertension Surgical History History of bladder surgery History of back surgery Social History Housing: House Alcohol intake: never Patient Tobacco Use Status: Never used Tobacco e-Cigarette/Vaping Use: Never Used Second Hand Smoke Exposure: No service: No Current occupational status: retired Current occupational exposures/hazards: No Cognitive needs: No (cane/walker) Hearing needs: No Vision needs: No (glasses) Assessment & Plan Assessment & Plan (1) Pre-diabetes: Code(s): R73.03 - Prediabetes Category: Medical Plan: Wt: 76 Kg ( 01/19 ) Est kcal needs as per MSJ: 1700 (40% carb, 30% protein/fat) Est fluid needs as per 25-30 ml/d: 2300 Est prot per day as per 1 g/kg bw: 80 Recommend fiber intake : 8-10 g per day and gradually increase to 25-28 g per day for women and 35-38 g for men or as tolerated Recommend sodium intake per day : less than 2000 mg Educated patient on: ( R = reviewed V = verbalizes understanding N/R = needs review N/A = not applicable * Food sources of carbohydrate, adequate serving sizes and its role in various health conditions: R * Differences between complex carbohydrates a simple carbohydrates, role of fiber in diet: R * Lean protein sources of foods: R * Differences between types of fats and role in diet (mono on saturated fat fatty acids, saturated fatty acids, trans fats): R V N/R * Food sources of sodium in salt and healthy modifications for heart health in kidney health: R V R/V * Vitamins and minerals: R V N/R * Healthy plate method concept: R * Physical activity: Benefits a precaution: R v * Hypoglycemia protocol (rule of 15): R V N/R * Dietary prevention of Hyperglycemia: R Patient Instructions: Follow healthy plate method 45-60 g carb per meal and 0-20 g as snack choose beverages low in sugars see meal plan ideas Coding Level of Care Code Nutr Indiv Intake (56612) Diagnoses Pre-diabetes R73.03 Time Spent (min) 30
[2025-01-08 10:42] VITALS: BMI 31.3
--- OUTSIDE RECORDS SUMMARY | 2025-01-08 11:49 | XMS_ITS | Clinical Summary ---
Author Organization [email or web address] Address [address] [facility] [address]t [place] [address] Care Team Providers Care Aircraft Air Conditioning Mechanic Name Role Phone Unavailable Primary Care Provider [...] Relevant to Health Maintenance Insurance [address] [place] [address] [facility]AL-[facility] MEDICAID STAND ADULT
--- OUTSIDE RECORDS SUMMARY | 2025-01-08 11:49 | XMS_ITS | Clinical Summary ---
Author Organization [facility] Address [address] [place] [address] Care Team Providers Care Roaster Operator Name Role Phone Roz Ramirez MD [...] age to complete this topic Care Teams Roaster Operator Relationship Specialty Start Date End Date Roz Ramirez MD PCP - General Internal Medicine 12/10/20
--- OUTSIDE RECORDS SUMMARY | 2025-01-08 11:50 | XMS_ITS | Referral Summary ---
Author Organization [facility] Address [address] [place] [address] Care Team Providers Care Extrusion Supervisor Name Role Phone Monik Wright Primary Care Provider [phone] Encounters Date Type Department Care Team Description 01/05/2025 Telephone [facility] [address]nd [address] [place] [address], [place] [address] Concrete Batching Plant Operator: Annabella Dhaliwal PA 01/03/2025 9:15 AM EDT Office Visit [facility] 4th Floor [address] [place] [address], [place] [address] Concrete Batching Plant Operator: Annabella Dhaliwal PA Seborrheic keratoses (Primary Dx); Inflamed seborrheic keratosis; Milia; Lentigines; Pedraza angioma from Last 3 Months Allergies No known active allergies Medications amLODIPine (NORVASC) 2.5 mg tablet Take 2.5 mg by mouth once a day. 5 Active atorvastatin (LIPITOR) 10 mg tablet Take 10 mg by mouth once a day. Active azithromycin (ZITHROMAX) 250 mg tablet Take 250 mg by mouth once a day. 4 Active Restasis 0.05 % ophthalmic emulsion Instill 1 drop into both eyes every 12 hours. 4 Active fluticasone propionate (FLONASE) 50 mcg/actuation nasal spray Administer 2 sprays into each nostril once a day. 5 Active melatonin 3 mg tablet Take 3 mg by mouth nightly. 5 Active propranolol LA (INDERAL LA) 60 mg capsule Take 60 mg by mouth once a day. 5 Active rosuvastatin (CRESTOR) 10 mg tablet Take 10 mg by mouth once a day. 5 Active tretinoin (RETIN-A) 0.025 % creamIndication s:Milia,Lentigi sofia Apply to your face every other night x 2 weeks and if tolerated (no dryness) may increase to every night at bedtime 45 g 11 5 Active Active Problems Problem Noted Date Diagnosed Date Fecal soiling 06/22/2016 Social History Tobacco Use Types Packs/Day Years Used Date Smoking Tobacco: Never Comments:: Comments Unknown Sex and Gender Information Value Date Recorded Sex Assigned at Female 04/25/2024 1:55 PM EDT Legal Sex Female 7:13 PM EDT Gender Identity Not on file Sexual Orientation Not on file Last Filed Vital Signs Vital Sign Reading Time Taken Comments Blood Pressure 147/82 06/22/2016 1:55 PM EDT Pulse 75 06/22/2016 1:55 PM EDT Temperature 36.5 ??C (97.7 ??F) 06/22/2016 1:55 PM ED T Respiratory Rate - - Oxygen Saturation - - Inhaled Oxygen Concentration - - Weight 73.9 kg (163 lb) 06/22/2016 1:55 PM EDT Height 157.5 cm (5' 2 ) 06/22/2016 1:55 PM EDT Body Mass Index 29.81 06/22/2016 1:55 PM EDT Plan of Treatment Upcoming Encounters Date Type Department Care Team (Late st Contact Info) Description 07/18/2025 10:30 AM EDT Follow-Up [facility] 4th Floor [address] [facility], [place] [id number] Concrete Batching Plant Operator: Annabella Dhaliwal, CARIE [address] [place] [phone] [facility] Care Teams Extrusion Supervisor Relationship Specialty Start Date End Date Monik Wright [address] [place] [id number] PCP - General 04/17/24
--- OUTSIDE RECORDS SUMMARY | 2025-01-08 11:50 | XMS_ITS | Encounter Summary ---
Author Organization [facility] Address [address] [place] [address] Care Team Providers Care Dispensary Attendant Name Role Phone WrightMonik perez Primary Care Provider [phone] Reason for Referral * Medication Prior Authorization - Pending Review Specialty Diagnoses / Procedures Referred By Ronna alcantar Referred To Contact Diagnoses Annabella Ruiz PA [address] [place] [address] Phone: tel: fax: Referral ID Status Reason Start Date Expiration Date V isits Requested Visits Authorized [id number] Pending Review 6 6 Reason for Visit * Reason Comments Skin Problem Spot of concern on b ack and face * Consultation (Routine) - Authorized Specialty Diagnoses / Procedures Referred By Ronna alcantar Referred To Contact Physician Pot Washer / Dermatology Diagnoses cyst Procedures Monik Workman [address] [place] [address] Phone: tel: fax: Annabella Galindo PA [address] [place] [address] Phone: tel: fax: Referral ID Status Reason Start Date Expiration Date V isits Requested Visits Authorized [id number] Authorized 10/05/2024 04/06/2026 6 6 Encounter Details Date Type Department Care Team (Late st Contact Info) Description 01/03/2025 9:15 AM EDT Office Visit [facility] [address]th [address] [place] [address], [place] [address] Fire Chief: Caprice Galindo, CARIE Leon [address] [place] [id number] Seborrheic keratoses (Primary Dx); Inflamed seborrheic keratosis; Milia; Lentigines; Pedraza angioma Social History Tobacco Use Types Packs/Day Years Used Date Smoking Tobacco: Never Comments:: Comments Unknown Sex and Gender Information Value Date Recorded Sex Assigned at Female 04/25/2024 1:55 PM EDT Legal Sex Female 7:13 PM EDT Gender Identity Not on file Sexual Orientation Not on file documented as of this encounter Patient Instructions * Patient Instructions* CARIE Mendosa - 01/03/2025 9:23 AM EDT Images from the original note were not included. Liquid Nitrogen treatment (Cryosurgery or Cryotherapy) Liquid nitrogen is a cold, liquified gas with a temperature of -321 degrees F. It is used to freezeand destroy superficial skin growths and precancerous lesions. It causes stinging and mild pain. This stinging and pain occurs during the treatment, but it may last anywhere from 3-24 hours afterwards. Tylenol may be taken as directed on the bottle as needed. Typically, you can wash your face and use your usual cosmetics and lotions after treatment. After treatment, your skin will become slightly swollen and red. Sometimes, it will blister. Later,a scab or crust will form and will fall off by itself within the next 7-10 days. This will heal faster if you apply Vaseline jelly or Aquaphor ointment to the area once a day. If you do get a blister and the area opens up and starts weeping, use an antibiotic ointment like Bacitracin or Polysporin twice a day until it is healed. Otherwise, plain Vaseline jelly to the red intact skin is perfect. PROTECT YOURSELF FROM THE SUN Avoid sun exposure in the middle of the day (10 AM - 3 PM) Wear a wide-brimmed hat and sunglasses when outdoors Wear sun protective clothing: tightly woven loose-fitting clothing, such as a long-sleeved shirt and pants Sun protective clothing is available from the following vendors: www.sundayafternoGenticel.Rhythmia Medical, www.coolibar.com, www.sunsolutionsclothing.com, www.sunprecautions.com www.tugasunwear.Rhythmia Medical Apply a broad-spectrum sunscreen with a sun protection factor (SPF) of at least 50 Reapply sunscreen every two hours when outdoors, more often if you are swimming or perspiring Avoid reflective surfaces (water or sand), which can reflect up to 85% of the sun???s damaging rays No shadow??? seek the shade! If your shadow is shorter than you are, the sun???s rays are at their strongest. Protect children: minimize sun exposure by having children wear hats and protective clothing and apply sunscreen to children aged 6 months or older Avoid tanning beds, which photo-age the skin For more information, see the [place] [employer] web site at www.aad.org SELF EXAMINATION Suncreens and Sunblocks The following products provide the most complete protection currently available against UVA and UVB: Products for the Face SPF Aveeno Protect + Hydrate Lotion Sunscreen 50, 70 CeraVe Sunscreen Face Lotion 50 Coppertone Clearly Sheer Faces Lotion 50 CVS Age Defense Face Lotion 70 CVS Vanishing Zinc Facial Sunscreen Lotion 50 L???Oreal Silky Sheer Face Sunscreen Lotion 50+ Neutrogena Age Shield Face Sunscreen Lotion 70, 110 Neutrogena Clear Face Liquid Sunscreen 55 [facility] Sheer Dry-Touch Sunscreen Lotion 55 Products for the Body SPF Aveeno Protect and Hydrate Lotion Sunscreen Broad Spectrum Banana Boat Sport Lotion Coppertone Clearly Sheer Sunscreen Lotion 70 100 50 CVS Sun Lotion or Baby Sun Lotion 50, 70, 100 CVS Ultra Sheer Dry Touch Lotion 55, 100 Equate Ultra Protection Sunscreen Lotion (Walmart) 50 La Johnny-Posay Anthelios 60 Ultra-light Sunscreen Fluid 60 Neutrogena Beach Defense Sunscreen Lotion, or Stick 70 Neutrogena Ultra Sheer Dry Touch Sunscreen 55, 70, 85, 100 Neutrogena Ultra Sheer Face + Body Stick Sunscreen 70 NO-AD Sun Care Broad Spectrum SPF 60 Sunscreen Lotion Up and Up (Target) Sport Sunscreen Lotion - SPF 50 60 50 WalCardiac Insight Sport Sunscreen Lotion 50 Products for people who wish to avoid chemical sunscreens SPF Aveeno Natural Protection Lotion Sunscreen 50 [place] Baby Super Sensitive Sunscreen Lotion SPF 30+ CVS Sensitive Skin Sunscreen Lotion 60 CVS Baby Pure and Gentle Lotion or Sunstick Broad Spectrum 60 Neutrogena Sensitive Skin Sunscreen Broad Spectrum 60+ Neutrogena Pure and Free Baby Sunscreen Lotion 60+ Vanicream Sunscreen 50+ [facility] Sunscreen Handout Physical blockers - include metals such as zinc oxide and titanium dioxide. The sun's rays hit the metal and are physically reflected off of the skin. These tend to appear whiter in color after they are rubbed in, but also tend to be less irritating to the skin and are good for children or people with sensitive skin. Chemical blockers - include chemicals such as oxybenzone, avobenzone, octisalate, octocrylene, and octinoxate. The sun's rays are absorbed and converted on the surface of the skin by these chemical molecules. Most sunscreens are chemical sunscreens and tend to rub in completely when applied. Extra Sun Care Tips - Avoiding the sun by means of shade and protective clothing/hats/sunglasses inaddition to sunscreen is the best way to protect your skin from damaging rays. Remember to apply SPF to areas like the tops of your ears and backs of your hands. It is important to reapply sunscreen every 2 hours, especially if sweating or swimming. Thicker, darker colored fabrics protect you better than a thin white t-shirt. Chemical blockers: - Equate?? Ultra Protection Sunscreen Lotion, SPF 50, $7.98 at [facility] - Equate?? Sport Sunscreen Lotion, SPF 50, $4.48 at [facility] - [facility]?? Ultra Sheer Sunscreen Lotion, SPF 55, $9.29 at [facility] - Neutrogena?? Ultra Sheer Dry-Touch Sunscreen, SPF 45 or 70, $11.49 at [facility] Neutrogena?? [place] Boost Gel Lotion, SPF 30 or 50, $9.99 at [facility] - Sun Bum?? Sunscreen Lotion, SPF 30 or 50, $14.99 at [facility] Sun Bum ?? Sunscreen Roll-On Lotion, SPF 50, $14.99 at [facility]?? Sunscreen Stick, SPF 50, $11.29 at [facility] - Up & Up? ? Kids Sunscreen Stick, SPF 55, $6.99 at Target - Banana Boat?? Sport Ultra Sunscreen Lotion, SPF 30, $12.99 at [facility] Physical blockers: - Neutrogena?? Pure & Free?? Baby Sunscreen, SPF 50, $10.99 at [facility] - Blue Lizard?? Afghan Sunscreen, SPF 30, $14.99 at [facility] - Neutrogena?? Sensitive Skin, SPF 60, $13.99 at [facility] - Vanicream??? Sunscreen Sport Water Resistant, SPF 35, $15.[address] [facility] - Baby Bum?? Mineral Sunscreen Lotion, SPF 50, $13.99 at [facility] Sun Bu?? Mineral Sunscreen Lotion, SPF 50, $16.49 at [facility]?? Mineral Sunscreen, SPF 30, $15.99 at [facility] Sunscreen for the face (oil-free/non-comedogenic/won't cause acne): - Neutrogena?? Age Shield?? Face Sunscreen, SPF 70, $14.99 - Neutrogena?? Clear Face Liquid Lotion Sunblock, SPF 30. $14.49 at [facility]?? AM Facial Moisturizing Lotion, SPF 30, $12.99 at [facility] - EltaMD?? UV Clear, SPF 46, $12.49 at [facility] - La Johnny-Posay?? Anthelios Clear Skin, SPF 60 $19.99 at [facility] - Vanicream?? Facial Moisturizer Physical Sunscreen, SPF 30, $14.[address] [facility] - Cetaphil?? Sheer Mineral Face, SPF 50, $8.29 at [facility] - Aveeno?? Protect + Hydrate Face Sunscreen, SPF 60, $8.99 at [facility] - Supergoop!?? Unseen Sunscreen, SPF 40, $36.[address] [facility] - Sun Bum?? Face Stick, SPF 30, $9.99 at [facility] - Sun Bum?? Face Lotion, SPF 50, $13.99 at [facility] Sunscreen sprays: - Sun Bum?? Scalp and Hair Mist, SPF 30 $14.99 at [facility] - Sun Bum?? Sunscreen [place], SPF 30, $15.99 (Mineral $17.99) at Target - Coppertone?? Sunscreen Continuous [place], SPF 50, $12.99 at [facility] - Up & Up? ? Sport [place], SPF 30, $4.59 at Target - Banana Boat?? Simply Protect Sensitive Mineral Enriched Sunscreen Lotion [place], SPF 50, $12.99 atCVS Tinted sunscreens: - CeraVe?? Tinted Mineral Sunscreen, SPF 30, $13.99 at Target - Ulta?? Tinted Mineral Face Lotion, SPF 30, $12.99 at [facility] - Live Tinted?? Alfonso 3-in-1 Mineral Primer, SPF 30, $32.00 at [facility] - EltaMD?? UV Physical Broad Spectrum Tinted Sunscreen, SPF 46, $39.00 on Amazon - [place] Johnny-Posay?? Anthelios 50 Tinted Mineral Ultra Fluid, SPF 50, $34.99 at [facility] - Sun Bum?? Mineral Sunscreen Tinted Face, SPF 30, $19.79 at [facility] - Manquin On Block?? Mineral Sunscreen Powder, SPF 30, $34.00 on Amazon - Supergoop!?? (Re)Setting Mineral Powder, SPF 35, $30 at Hanny or on Amazon - Tarte??? BB Tinted Primer, SPF 30, $39 at [facility]anny - IT Cosmetics?? CC+ Foundation, SPF 50, $42 at [facility] Lip balms with sunscreen: - Aquaphor?? Lip Repair Stick, SPF 30 , $7.69 for 2 at Target - Up & Up?? (Target) Sport Sunscreen Lip [place], SPF 50, $3.99 for 2 at Target - Banana Boat?? Ultra Sport Lip [place], SPF 50, $4.99 for 2 at Target - eos?? Natural Lip [place] Stick, SPF 30, $2.99 for 1 at Target - Sun Bum?? Sunscreen Lip [place], SPF 30 (chemical or mineral), $9.99 for 3 at [facility] - Coola?? Organic Liplux Classic Sunscreen Lip [place], SPF 30, $18 at Ulta or coola.com UPF (Ultraviolet Protection Factor) Clothing: - Coolibar?? (www.ZerplyibarRevcaster) - L.L. Ball?? - Athleta?? [facility] Department of Dermatology Updated 04/21/22 by Tex García M Olmsted. [facility] Dermatology Hldc-gcy-Lgbmzxk Benzoyl Peroxide Products We are providing you with this list of sfhp-cnn-ernaoig acne products containing benzoyl peroxide because most insurers no longer cover similar prescription products. These products are available in most pharmacies and can also be obtained online. Washes: - CeraVe?? Acne Foaming Cream Face Cleanser (4%), $13.69 at Target - PanOxyl??-4 Acne Creamy Wash (4%) $9.49 at Target - Differin?? Daily Deep Cleanser (5%), $12.47 at [facility] - PanOxyl?? Foaming Acne Wash (10%), $9.49 at Target - [facility]S [facility]?? Acne Control Cleanser (10%), $6.29 at [facility] Gels: - Neutrogena?? On-The-Spot Acne Treatment (2.5%), $6.99 at [facility] - Cely Go Away Acne Spot Treatment (5%), $22.00 at Ulta - La Johnny-Posay?? Effaclar Duo Dual Acne Treatment (5.5%), $20.99 at Target - Acne Free?? Terminator 10 Medicated Spot Treatment (10%) $8.99 at [facility]S - Clean & Clear?? Persa-Gel 10 Maximum Strength (10%), $5.47 at [facility] - Neutrogena?? Rapid Clear Stubborn Acne Medication (10%), $9.79 at Target - [facility]S Health?? Acne Treatment Gel (10%), $5.99 at [facility]S - Up & Up? ? Max. Strength Acne Medication (10%), $3.79 at Target - Zapzyt?? Maximum Strength Benzoyl Peroxide Acne Treatment Gel (10%), $4.49 at [facility] Caution: Be careful not to get benzoyl peroxide products in your eyes as this can be very irritating. Also, benzoyl peroxide can bleach fabrics, so be sure to wash off your skin very carefully to avoid getting it on your clothing and towels. [facility] Department of Dermatology Updated 04/20/2022 by Milla DIANA (ADAPALENE) TO FACE AT BEDTIME IF RETIN-A IS TOO EXPENSIVE AMLACTIN LOTION TO THE ROUGH BROWN SPOTS ON YOUR BACK documented in this encounter Progress Notes * CARIE Mendosa - 01/03/2025 9:15 AM EDT DERMATOLOGY NEW PATIENT VISIT CHIEF COMPLAINT: Spot on her back and flank and white spots on her face HPI: Kyara Moore is a 69 y.o. female who presents as a new patient to [facility] Department of Dermatology for evaluation of a few spots of concern. She has 2 rough raised spots on her left back and right flank. These are often irritating when they rub on her clothing and bothersome. She alsohas white spots on her face. She uses Madison oil on her face; she gets facial and extractions. Personal history of skin cancer: no Family history of skin cancer: Yes History of blistering sunburns: No History of atypical nevi: No History of tanning bed use: remote Hx, couple times Sun protection measures: yes PAST DERMATOLOGIC HISTORY: No specialty comments available. PAST MEDICAL HISTORY, MEDICATIONS, ALLERGIES, SOCIAL HISTORY, and FAMILY HISTORY were reviewed in patients chart. No Known Allergies REVIEW OF SYSTEMS: Patient is feeling well with no symptoms other than those discussed above. PHYSICAL EXAM: The patient is a well-appearing female with fair skin tone in no distress with a pleasant mood. Focused skin exam of the face, back and flanks was performed and reveals - Pertinent positives noted on exam as follows: Physical Exam - Pin point white papules on the face - Brown and harper waxy, verrucous stuck on papules and plaques with pseudohorn cysts on the trunk andextremities; 2 irritated harper plaques on left lateral back and right flank - scattered harper macules in a sun-exposed distribution - Scattered red well circumscribed papules on the trunk ASSESSMENT & PLAN: 1. Seborrheic keratoses (Primary) - Benign. Reassured and no treatment is needed today. -Will continue to monitor clinically. - Suggested Amlactin to affected areas daily 2. Inflamed seborrheic keratosis Destruction of Inflamed Seborrheic Keratosis Procedure Note Informed consent: Discussed risks (permanent scarring, light or dark discoloration, infection, pain, bleeding, bruising, redness, blister formation, and recurrence of the lesion) and benefits of the procedure, as well as the alternatives. Informed consent was obtained. Procedure Details: Liquid Nitrogen was applied to 2 ISKs - left back and right flank for 2 freeze/thaw cycles. The patient tolerated procedure well. 3. Prabhu - Advised to use GoodRx as she kows there is an out of pocket cost. She may also use Differin (but not together) if the tretinoin is cost prohibitive. - tretinoin (RETIN-A) 0.025 % cream; Apply to your face every other night x 2 weeks and if tolerated (no dryness) may increase to every night at bedtime Dispense: 45 g; Refill: 11 4. Lentigines - tretinoin (RETIN-A) 0.025 % cream; Apply to your face every other night x 2 weeks and if tolerated (no dryness) may increase to every night at bedtime Dispense: 45 g; Refill: 11 5. Pedraza angioma - Benign. Reassured and no treatment is needed today. -Will continue to monitor clinically. We discussed sun protection, use of sunscreens and the signs of skin cancer. The patient will perform monthly self skin exams and call us for any new, changing, bleeding or non-healing lesions. FOLLOW UP: Return in about 6 months (around 07/05/2025) for Skin Exam. Portions of this note were created with voice recognition software. As such, please excuse any wordselection errors, misspellings or grammatical errors. documented in this encounter Plan of Treatment Upcoming Encounters Date Type Department Care Team (Late st Contact Info) Description 07/18/2025 10:30 AM EDT Follow-Up [facility] 4th Floor [address] [facility], [place] [address] Fire Chief: Annabella Dhaliwal, CARIE [address] [place] [address] documented as of this encounter Visit Diagnoses Diagnosis Seborrheic keratoses- Primary Inflamed seborrheic keratosis Milia Sebaceous cyst Lentigines Pedraza angioma documented in this encounter Care Teams Dispensary Attendant Relationship Specialty Start Date End Date Monik Wright [address] [place] [address] PCP - General 04/17/24 documented as of this encounter
--- OUTSIDE RECORDS SUMMARY | 2025-01-08 11:50 | XMS_ITS | Encounter Summary ---
Author Organization [facility] Address [address] [id number] Care Team Providers Care Brass Buffer Name Role Phone Monik Wright Primary Care Provider [phone] Encounter Details Date Type Department Care Team ([facility] Contact Info) Description 01/05/2025 Telephone [facility] 2nd Floor [address] [facility], [place] [address] Chemical Packager: Annabella Dhaliwal PA [address] [place] [address] Social History Tobacco Use Types Packs/Day Years Used Date Smoking Tobacco: Never Comments:: Comments Unknown Sex and Gender Information Value Date Recorded Sex Assigned at Female 04/25/2024 1:55 PM EDT Legal Sex Female 7:13 PM EDT Gender Identity Not on file Sexual Orientation Not on file documented as of this encounter Miscellaneous Notes * Telephone Encounter - Melissa Diggs - 01/05/2025 1:29 PM EDT Good Afternoon, PAC is trying to process PA for tretinoin (RETIN-A) 0.025 % cream, the pharmacy coverage we have onfile for is inactive, Our next step would be to call pharmacy to get that coverage, But there is not active pharmacy on the rx. Thank you! documented in this encounter Plan of Treatment Upcoming Encounters Date Type Department Care Team ([facility] Contact Info) Description 07/18/2025 10:30 AM EDT Follow-Up [facility] 4th Floor [address] [facility], [place] [address] Chemical Packager: Annabella Dhaliwal PA [address] [place] [address] documented as of this encounter Visit Diagnoses Not on filedocumented in this encounter Care Teams Brass Buffer Relationship Specialty Start Date End Date Monik Wright [place] [address] PCP - General 04/17/24 documented as of this encounter
--- OUTSIDE RECORDS SUMMARY | 2025-01-08 11:50 | XMS_ITS | Clinical Summary ---
Author Organization [facility] Address [address] [place] [address] Care Team Providers Care Drum Builder Name Role Phone Kelly Pritchett PA-C Primary Care Provider [phone] Source Comments PLEASE NOTE, if this patient [...] 03/05/[address] Cazares 03/05/2015 Immunizations Immunization Administration Dates Next Due TDAP 06/07/2017 Social [...] Insurance HE[employer]AF[employer]Y NET MEDICAID Care Teams Drum Builder Relationship Specialty Start Date End Date Kelly Pritchett PA-C [address] [place] [address] PCP - General Internal Medicine 03/05/15
--- OUTSIDE RECORDS SUMMARY | 2025-01-08 11:50 | XMS_ITS | Clinical Summary ---
Author Organization [facility] Address [address] [place] [address] Care Team Providers Care Industrial Conveyor Belt Repairer Name Role Phone Monik Wright Primary Care Provider [phone] Allergies No known active allergies Medications amLODIPine [...] Noted Date Diagnosed Date Fecal soiling 06/22/2016 Encounters Date Type Department Care Team Description 01/05/2025 Telephone [facility] 2nd Floor [address] [facility], [place] [address] Engraving Patternmaker: Annabella Dhaliwal., PA 01/03/2025 9:15 AM EDT Office Visit [facility] [address] [phone] Engraving Patternmaker: Annabella Dhaliwal PA Seborrheic keratoses (Primary Dx); Inflamed seborrheic keratosis; Milia; Lentigines; Pedraza angioma from Last 3 Months Social History Tobacco Use Types Packs/Day Years [...] Info) Description 07/18/2025 10:30 AM EDT Follow-Up [facility] [address] [phone] Engraving Patternmaker: Annabella Dhaliwal PA [address] [place] [address] Health Maintenance Due Date Last Done Comments Colonoscopy 1954 FOBT / Fit Test 1954 Sigmoidoscopy 1954 Mammogram 1994 Osteoporosis Screening 2004 Pneumococcal Vaccine: 50+ Years (1 of 1 - PCV) 2004 Zoster Vaccines (1 of 2) 2004 COVID-19 Vaccine (1 - 2023-2 5 season) 2024 Alcohol/Substance Use Screening 09/27/2024 Depression Screening and Follow-Up 09/27/2024 Health Care Proxy Review 09/27/2024 Social Drivers of Health Annual Screening 09/27/2024 Cologuard 02/16/2025 02/16/2022, 02/16/2022 Colon Cancer Screening 02/16/2025 Influenza Vaccine (Season Ended) 2025 DTaP,Tdap,and Td Vaccines (2 - Td or Tdap) 06/07/2027 06/07/2017 RSV Vaccine (60+ years old a nd patients) (1 - 1-dose 75+ series) 2029 Hepatitis C Screening Completed 06/07/2017 Hepatitis B Vaccines Aged Out No long er eligible based on patient's age to complete this topic Insurance [facility] Care Teams Industrial Conveyor Belt Repairer Relationship Specialty Start Date End Date Monik Wright [address] [place] [address] PCP - General 04/17/24
[2025-01-22 21:06] VITALS: BMI 31.2
== END 2025-01-08 11:10 | disposition home or self-care (01) ==
LOC: HO.ENCR 10:22
PROVIDERS: PCP Nurse Practitioner Family; Visit Provider Dietitian, Registered
DX: R73.03 Prediabetes (principal)

== ENCOUNTER → 2025-01-08 10:19 | Outpatient (BNVA) | payer MEDICARE, SELFPAY | PROVIDERS: PCP Nurse Practitioner Family; Visit Provider Dietitian, Registered | DX: R73.03 Prediabetes (principal) | CPT/HCPCS: 97802 ==

== ENCOUNTER 2025-03-09 08:18 | Outpatient (AMB) | payer MEDICARE, SELFPAY ==
--- NOTE | 2025-03-09 08:23 | A.OFFPC_ITS ---
Vital Signs 3 03/09/25 08:27 Height 5 ft 1.5 in Weight 170 lb BMI 31.6 BP 136/74 Blood Pressure Location Rt brachial Position Sitting Respiration 13 Pulse 69 Pulse Source Pulse Oximeter Temp 97.6 F Temp Source Oral Pulse Oximetry (%) 96 Oxygen Delivery Method Room Air Intake Visit Reasons: then 6 mo with me 30 min routine complex Intake Note: Routine 6 Months follow up. Patient c/o back, neck and patient will like referral for PT. Flight Operations Coordinator Required: No Allergies flu vaccine Allergy (Severe, Uncoded 03/09/25 08:25) Hives Medication List - Last Reconciled 03/09/25 by Monik Delgado, PLASTICS FABRICATION SUPERVISOR- amlodipine 2.5 mg PO DAILY cyclosporine 0.05% (Restasis) 1 drp ophthalmic (eye) Q12H 30 days fluticasone propionate 50 mcg/actuation 2 sprays intranasal BID 30 days melatonin 3 mg PO BEDTIME PRN multivitamin with iron 1 tab PO DAILY omeprazole 20 mg PO DAILY PRN propranolol ER 60 mg PO BEDTIME rosuvastatin 10 mg PO DAILY Tobacco use date assessed: 03/09/25 Fall risk assessment: No Falls in past year Last assessed Fall Risk: 03/09/25 Dental Screening Dental Screen Date: 03/09/25 Did you have a dental visit in the last 12 months?: Yes Did you have a dental problem in the last 6 months where you did not have access to dental care?: No Was dental information given to patient?: Patient has dentist HPI HPI Comments 2 History of Present Illness0 Details 69-year-old female with HLD, anxiety, tr emors, hypertension, chronic daily headaches, tinnitus, eczema, GERD , macular degeneration, sigmois diverticulosis, anemia, Mild hepatic steatosis, Cholelithiasis, L renal cyst History of Present Illness - The patient is a 69-year-old female pr esenting with routine chronic disease management and evaluation of back pain. - Chronic hyperlipidemia managed with ro suvastatin, considering alternatives due to myalgias. - Essential hypertension controlled with amlodipine and propranolol; requires refill. - Anemia supplemented with iron-containi ng multivitamin from beef liver. - Reports restless nights, ineffective m elatonin 3 mg for sleep; trialing higher dosing discussed. - Chronic back pain affecting lower back and legs,worse RLE, characterized by tingling and numbness; no inciting event. Has pain between shoulder blades, too. She denies any chest pain. Has known gallstones but does not think this is biliary.She reports when she cracks her back she has relief of pain in this area. - Reports GERD, using omeprazole 20 mg, and a history of gallstones, fears surgery. Started taking OTC Ursolic, feels like this helped - Env.Allergies: Improved ear condition recently, noted ineffective nasal spray for allergies; previously took levocetirizine. - Pain over L breast, present for months , only hurts when she touches; she is UTD on Mammo. Does not want any additional imaging and declines biopsy. - Renal cyst under survellience by Renal Review of Systems - General: Reports sleep disturbance; in effective melatonin. - Musculoskeletal: Reports significant b ack pain radiating to legs, numbness, tingling. Reports of lower back pain radiating to the right leg, sometimes associated with numbness and a buzzing sensation. Pain also noted in the middle back. Reports of muscle cramps almost every night. - Cardiovascular: Denies chest pain, rep orts hypertension management with medications. - Gastrointestinal: Reports ongoing GERD , managed with omeprazole; mentions past gallstones. - Hematologic: Reports history of anemia , supplements with iron. - Allergies/ENT: Reports ineffective agata al spray; improved ear condition; ongoing use of Restasis. - Dermatologic/Neurologic: Reports sensa tions of ants crawling over back; intermittent muscle cramps. Physical Exam Awake alert oriented accompanied by her granddaughter Head atraumatic PERRLA, EOMI, scleras nonicteric Neck full range of motion Regular rate and rhythm Lung sounds CTAB No hepatomegaly, abd soft, nontender No edema BLE Neuro: DESHPANDE x 4, limb neurovasc intact, CN intact, normal strength, tone and reflexes, negative rhomberg; normal heel-toe walking, Rapid Alt Movements. No spinal or paraspinal tenderness Alert, smiling, cooperative and appropriate. Moves all extremities x4. Results reviewed Mammo 11/2024 WNL Renal 11/06/[address] of kidneys in 1 year Gen Surg 11/14/24 surgery vs watch and wait pt opted for watch and wait Discussion Notes During the visit, we detailed a plan to manage her chronic conditions effectively. The patient's hyperlipidemia treatment with rosuvastatin has been evaluated, with suggestions for an alternative supplement, Gilpin bergamot, discussed. The risks and benefits of discontinuing rosuvastatin in favor of this supplement were explained. For her sleep disturbance, the current melatonin was increased from 3mg to 6mg to enhance efficacy. Her back pain was considered for physical therapy intervention to alleviate symptoms; refill Lidocaine as this has been effective. The patient was informed about referrals and advised to ask for the printout at the executive receptionist to avoid delays or errors with external facilities. We reviewed follow-up procedures with labs and reassured the patient regarding her recent mammogram results; declined any breast imaging or f/u. Discussions regarding gallbladder concerns highlighted medication success and the patient's apprehension about surgical intervention. Regular check-ups were advised for her chronic conditions. Assessment and Plan 1. Hyperlipidemia - Discontinued rosuvastatin, started Cit kristine bergamot. 2. Hypertension - Continue amlodipine, propranolol; refi lled prescriptions. 3. Anemia - Maintain current multivitamin with iro n. 4. Allergies - Use Restasis; trialing alternative all ergy pills. 5. Sleep disturbance - Use melatonin 3 mg, may increase to 6 mg. 6. Back pain - Refer to physical therapy; lidocaine p atches for relief. 7. GERD - Continue omeprazole, discussed non-terra gical options for gallstones. 8. Gallstones: Patient prefers non-surgi naren management due to lack of severe symptoms. Agreed to monitor with symptom observation. 9. Fatty Liver Disease: Patient's fatty liver disease requires dietary management. Active w/ roving department supervisor Patient Instructions - Take Gilpin bergamot as directed for c holesterol management. - Continue hypertension medications as p rescribed. - Take multivitamin with iron daily. - Use Restasis eye drops for eye allergi es, consider pills for other allergy symptoms. - Use melatonin nightly, increasing the dose if needed for better sleep. - Attend physical therapy appointments a s scheduled. - Apply lidocaine patches as needed for back pain relief. - Continue omeprazole for GERD and avoid potential gallstone irritants. - Labs today - RTO 6 months sAWV sooner prn Consent Patient was informed and verbally consented to the use of an ambient scribe for clinic note documentation during this visit. Total time spent caring for the patient today was 45 minutes. This includes time spent before the visit reviewing the chart, time spent during the visit, and time spent after the visit on documentation, reviewing laboratory results, diagnostic imaging, medications, performing a medically necessary evaluation, counseling on diagnoses, care coordination, ordering appropriate tests, ordering appropriate medications, review of tests performed by other providers, reporting test results with the patient, communication with other healthcare providers. [facility] Medical History Right shoulder pain Arthritis of hand Left hip pain Difficulty sleeping Right-sided back pain Macular degeneration Right sciatic nerve pain GERD (gastroesophageal reflux disease) Depression HLD (hyperlipidemia) Hypertension Surgical History History of bladder surgery History of back surgery Social History Housing: House Alcohol intake: never Patient Tobacco Use Status: Never used Tobacco e-Cigarette/Vaping Use: Never Used Second Hand Smoke Exposure: No service: No Current occupational status: retired Current occupational exposures/hazards: No Cognitive needs: No (cane/walker) Hearing needs: No Vision needs: No (glasses) Questionnaire PHQ-9 Over the last 2 weeks, how often have you been bothered by any of the following problems? 1. Little interest or pleasure in doing things: more than half the days 2. Feeling down, depressed, or hopeless: more than half the days 3. Trouble falling or staying asleep, or sleeping too much: more than half the days 4. Feeling tired or having little energy: several days 5. Poor appetite or overeating: several days 6. Feeling bad about yourself - or that you are a failure or have let yourself or your family down: not at all 7. Trouble concentrating on things, such as reading the newspaper or watching television: nearly every day 8. Moving or speaking so slowly that other people could have noticed. Or the opposite - being so fidgety or restless that you have been moving around a lot more than usual: not at all 9. Thoughts that you would be better off or of hurting yourself in some way: not at all Total score: 11 Depression Screening Interpretation: Positive Depression Screening Follow-up: Existing condition and Declines treatment Depression Screening Done: Yes 37471 - PHQ-9 Billing: Yes Source: Developed by Drs. Saad Ballard, Carolina Portillo, Aly Zee and colleagues, with an educational susan from [employer]. Thrive Questionnaire Date Thrive assessed: 03/09/25 I am a: Patient What is your living situation today?: I have a steady place to live Within the past 12 months, did the food you bought not last and you didn't have the money to get more?: Never true Within the past 12 months, did you worry whether your food would run out before you got money to buy more?: Never true Do you have trouble paying for medicines?: No Do you have trouble getting transportation to medical appointments?: No Do you have trouble paying your heating and electricity bill?: No Do you have trouble taking care of your child, family member or friend?: No Do you have trouble with day-to-day activities such as bathing, preparing meals, shopping, managing finances, etc.?: Yes Are you currently unemployed and looking for a job?: No Are you interested in more education?: No Please select the resources that you would like help with: None Currently or been in a relationship where the following occur: No concerns reported THRIVE Score: 0 AUDIT C Alcohol Use Questionnaire (AUDIT-C) 1. How often do you have a drink containing alcohol?: Never Total Score: 0 Score Reviewed/Action Taken: Yes TIFFANIE-7 AMB Questionnaire TIFFANIE-7 Date TIFFANIE - 7 assessed: 03/09/25 Feeling nervous, anxious, or on edge: 1 = Several days Not being able to stop or control worryin = Several days Worrying too much about different things: 1 = Several days Trouble relaxin = Several days Being so restless that it is hard to sit still: 2 = More than half the days Becoming easily annoyed or irritable: 2 = More than half the days Feeling afraid as if something awful might happen: 1 = Several days Total TIFFANIE-7 score (0-4 normal; 5-9 mild; 10-14 moderate; 15-21 severe): 9 Source: Developed by Drs. Saad Ballard, Carolina Portillo, Aly Zee and colleagues, with an educational susan from [employer]. TIFFANIE-7 Assessment Billing TIFFANIE-7 Assessment Tool: TIFFANIE-7 Assessment 59986 Physical exam (Primary Care) Vital Signs: Last Vital Signs Temp 97.6 F 03/09/25 08:27 Pulse 69 03/09/25 08:27 Resp 13 03/09/25 08:27 BP 136/74 03/09/25 08:27 Pulse Ox 96 03/09/25 08:27 Oxygen Delivery Method Room Air 03/09/25 08:27 BMI result Body Mass Index 31.6 BMI Assessment/Plan discussion: High BMI High, discussed plan: lifestyle Tobacco/Smoking Status: Tobacco use Status Tobacco use date assessed 03/09/25 03/09/25 08:29 Patient Tobacco Use Status Never used Tobacco 03/09/25 08:29 e-Cigarette/Vaping Use Never Used 03/09/25 08:29 PHQ-9: PHQ-9 Score PHQ-9: Total score 11 03/09/25 16:49 Depression Screening Interpretation: Positive Depression Screening Follow-up: Existing condition and Declines treatment Thrive Assessment: Date of Thrive Assessment Date Thrive assessed 03/09/25 03/09/25 08:29 Currently or been in a relationship where the following occur: No concerns reported GI Abdomen image: 2 1. pain w/ palp, above breast, more so over the ribs. Skin intact. Coding Level of Care Code Est Pt Level 5 (30743) Complex EM visit Add On G2211 Diagnoses Hepatic steatosis K76.0 Calculus of gallbladder without cholecystitis without obstruction K80.20 Biliary obstruction: without biliary obstruction Cholecystitis presence: without cholecystitis Cholelithiasis location: gallbladder Low back pain radiating to both legs M54.50; M79.604; M79.605 Upper back pain M54.9 Primary hypertension I10 Hypertension type: primary hypertension Mixed hyperlipidemia E78.2 Hyperlipidemia type: mixed hyperlipidemia Gastroesophageal reflux disease with esophagitis without hemorrhage K21.00 Esophagitis bleeding: without hemorrhage Esophagitis presence: with esophagitis Pre-diabetes R73.03 Normocytic anemia D64.9 Low vitamin D level R79.89 Breast cancer screening by mammogram Z12.31 Primary insomnia F51.01 Insomnia type: primary Leg cramps R25.2 Renal cyst, left N28.1 Breast pain, left N64.4 Obesity (BMI 30-39.9) E66.9 Additional Codes TIFFANIE-7 Assessment Billing - TIFFANIE-7 Assessment Tool: TIFFANIE-7 Assessment 26350 ([id number]) PHQ-9 - 53831 - PHQ-9 Billing: Yes ([id number]) Assessment & Plan Assessment & Plan (1) Hepatic steatosis: Code(s): K76.0 - Fatty (change of) liver, not elsewhere classified Category: Medical (2) Cholelithiasis: Comment: [facility] 09/2024 Mild hepatic steatosis. Cholelithiasis without evidence of acute Gen Surg 11/14/24 surgery vs watch and wait pt opted for watch and wait Code(s): K80.20 - Calculus of gallbladder without cholecystitis without obstruction Category: Surgical Qualifiers: Biliary obstruction: without biliary obstruction Cholecystitis presence: without cholecystitis Cholelithiasis location: gallbladder Qualified Code(s): K80.20 - Calculus of gallbladder without cholecystitis without obstruction (3) Low back pain radiating to both legs: Code(s): M54.50 - Low back pain, unspecified; M79.604 - Pain in right leg; M79.605 - Pain in left leg Category: Medical (4) Upper back pain: Code(s): M54.9 - Dorsalgia, unspecified Category: Medical (5) Hypertension: Code(s): I10 - Essential (primary) hypertension Category: Medical Qualifiers: Hypertension type: primary hypertension Qualified Code(s): I10 - Essential (primary) hypertension (6) HLD (hyperlipidemia): Comment: cont rosuvastatin 10 mg daily. Repeat lipid panel Code(s): E78.5 - Hyperlipidemia, unspecified Category: Medical Qualifiers: Hyperlipidemia type: mixed hyperlipidemia Qualified Code(s): E78.2 - Mixed hyperlipidemia (7) GERD (gastroesophageal reflux disease): Code(s): K21.9 - Gastro-esophageal reflux disease without esophagitis Category: Medical Qualifiers: Esophagitis bleeding: without hemorrhage Esophagitis presence: with esophagitis Qualified Code(s): K21.00 - Gastro-esophageal reflux disease with esophagitis, without bleeding (8) Pre-diabetes: Code(s): R73.03 - Prediabetes Category: Medical (9) Normocytic anemia: Comment: Labs from November of 2023 within normal limits without supplementation. Code(s): D64.9 - Anemia, unspecified Category: Medical (10) Low vitamin D level: Comment: November 2023 vitamin-D level within normal limits without supplementation. No need to supplement. Code(s): R79.89 - Other specified abnormal findings of blood chemistry Category: Medical (11) Breast cancer screening by mammogram: Onset Date: ~11/2024 Code(s): Z12.31 - Encounter for screening mammogram for malignant neoplasm of breast Category: Medical (12) Insomnia: Code(s): G47.00 - Insomnia, unspecified Category: Medical Qualifiers: Insomnia type: primary Qualified Code(s): F51.01 - Primary insomnia (13) Leg cramps: Code(s): R25.2 - Cramp and spasm Category: Medical (14) Renal cyst, left: Comment: ABD US 09/2024 Renal 11/06/[address] of kidneys in 1 year Code(s): N28.1 - Cyst of kidney, acquired Category: Medical (15) Breast pain, left: Code(s): N64.4 - Mastodynia Category: Medical (16) Obesity (BMI 30-39.9): Code(s): E66.9 - Obesity, unspecified Category: Medical Plan . Orders: Orders 2 Ferritin 03/09/25 D64.9 - Anemia, unspecified, E78.2 - Mixed hyperlipidemia, F51.01 - Primary insomnia, I10 - Essential (primary) hypertension, K21.00 - Gastro-esophageal reflux disease with esophagitis, without bleeding, K76.0 - Fatty (change of) liver, not elsewhere classified, K80.20 - Calculus of gallbladder without cholecystitis without obstruction, R73.03 - Prediabetes PT Evaluation and Treatment 03/09/25 M54.50 - Low back pain, unspecified, M54.9 - Dorsalgia, unspecified, M79.604 - Pain in right leg, M79.605 - Pain in left leg Complete Blood Count no Diff 03/09/25 D64.9 - Anemia, unspecified, E78.2 - Mixed hyperlipidemia, F51.01 - Primary insomnia, I10 - Essential (primary) hypertension, K21.00 - Gastro-esophageal reflux disease with esophagitis, without bleeding, K76.0 - Fatty (change of) liver, not elsewhere classified, K80.20 - Calculus of gallbladder without cholecystitis without obstruction, R73.03 - Prediabetes Comprehensive Met. Panel 03/09/25 D64.9 - Anemia, unspecified, E78.2 - Mixed hyperlipidemia, F51.01 - Primary insomnia, I10 - Essential (primary) hypertension, K21.00 - Gastro-esophageal reflux disease with esophagitis, without bleeding, K76.0 - Fatty (change of) liver, not elsewhere classified, K80.20 - Calculus of gallbladder without cholecystitis without obstruction, R73.03 - Prediabetes IRON PROFILE 03/09/25 D64.9 - Anemia, unspecified, E78.2 - Mixed hyperlipidemia, F51.01 - Primary insomnia, I10 - Essential (primary) hypertension, K21.00 - Gastro-esophageal reflux disease with esophagitis, without bleeding, K76.0 - Fatty (change of) liver, not elsewhere classified, K80.20 - Calculus of gallbladder without cholecystitis without obstruction, R73.03 - Prediabetes Lipid Panel 03/09/25 D64.9 - Anemia, unspecified, E78.2 - Mixed hyperlipidemia, F51.01 - Primary insomnia, I10 - Essential (primary) hypertension, K21.00 - Gastro-esophageal reflux disease with esophagitis, without bleeding, K76.0 - Fatty (change of) liver, not elsewhere classified, K80.20 - Calculus of gallbladder without cholecystitis without obstruction, R73.03 - Prediabetes Vitamin D 25-OH Total 03/09/25 R73.03 - Prediabetes, R79.89 - Other specified abnormal findings of blood chemistry Hemoglobin A1c 03/09/25 R73.03 - Prediabetes, R79.89 - Other specified abnormal findings of blood chemistry Medications: New 2 lidocaine 4% 1 patch topical DAILY PRN 30 ea 12RF pain Changed 2 From melatonin 3 mg PO BEDTIME PRN 90 tabs 2RF for insomnia To melatonin 6 mg (2 x 3 mg) PO BEDTIME PRN 180 tabs 2RF for insomnia Refilled 2 amlodipine 2.5 mg PO DAILY 90 tabs 1RF propranolol ER 60 mg PO BEDTIME 90 caps 1RF cyclosporine 0.05% (Restasis) 1 drp ophthalmic (eye) Q12H 30 days 60 ea 4RF Discontinued 2 fluticasone propionate 50 mcg/actuation Discontinued Reason: Patient Completed Course 2 sprays intranasal BID 30 days 16 grams 8RF rosuvastatin Discontinued Reason: Doctor's Order 10 mg PO DAILY 90 tabs 1RF Patient Instructions: Gilpin Bergamot 1000mg daily - buy over the counter for cholesterol Patient Instructions - Take Gilpin bergamot as directed for cholesterol management. - Continue hypertension medications as prescribed. - Take multivitamin with iron daily. - Use Restasis eye drops for eye allergies, consider pills for other allergy symptoms. - Use melatonin nightly, increasing the dose if needed for better sleep. - Attend physical therapy appointments as scheduled. - Apply lidocaine patches as needed for back pain relief. - Continue omeprazole for GERD and avoid potential gallstone irritants.
--- OUTSIDE RECORDS SUMMARY | 2025-03-09 08:25 | XMS_ITS | Clinical Summary ---
Author Organization [facility] Address [address] [place] [address] Care Team Providers Care Cvir Tech Name Role Phone Roz Ramirez MD Primary [...] of 1 - PCV) 2019 Influenza Vaccine (Season Ended) 2025 DTap / Tdap / Td (2 - [...] age to complete this topic Care Teams Cvir Tech Relationship Specialty Start Date End Date Roz Ramirez MD PCP - General Internal Medicine 12/10/20
[2025-03-09 08:27] VITALS: BP 136/74; PULSE 69; RESP 13; TEMP 36.4; O2SAT 96; BMI 31.6
== END 2025-03-09 09:15 | disposition home or self-care (01) ==
LOC: HO.HMCFM 08:19
PROVIDERS: PCP Nurse Practitioner Family; Visit Provider Nurse Practitioner Family
DX: K80.20 Calculus of gallbladder without cholecystitis without obstruction (principal); K76.0 Fatty (change of) liver, not elsewhere classified; M54.50 Low back pain, unspecified; M79.604 Pain in right leg; M79.605 Pain in left leg; M54.9 Dorsalgia, unspecified; I10 Essential (primary) hypertension; E78.2 Mixed hyperlipidemia; K21.00 Gastro-esophageal reflux disease with esophagitis, without bleeding; R73.03 Prediabetes; D64.9 Anemia, unspecified; R79.89 Other specified abnormal findings of blood chemistry; Z12.31 Encounter for screening mammogram for malignant neoplasm of breast

== ENCOUNTER → 2025-03-09 08:18 | Outpatient (BNVA) | payer MEDICARE, SELFPAY | PROVIDERS: PCP Nurse Practitioner Family; Visit Provider Nurse Practitioner Family | DX: I10 Essential (primary) hypertension (principal); E78.5 Hyperlipidemia, unspecified; F41.9 Anxiety disorder, unspecified; R25.1 Tremor, unspecified; R51.9 Headache, unspecified; H93.19 Tinnitus, unspecified ear; K21.9 Gastro-esophageal reflux disease without esophagitis; K57.90 Diverticulosis of intestine, part unspecified, without perforation or abscess without bleeding; N28.1 Cyst of kidney, acquired; D64.9 Anemia, unspecified; M54.50 Low back pain, unspecified; R20.0 Anesthesia of skin; N64.4 Mastodynia; K76.0 Fatty (change of) liver, not elsewhere classified; K80.20 Calculus of gallbladder without cholecystitis without obstruction; M79.604 Pain in right leg; M79.605 Pain in left leg; E78.2 Mixed hyperlipidemia; K21.00 Gastro-esophageal reflux disease with esophagitis, without bleeding; R73.03 Prediabetes; R79.89 Other specified abnormal findings of blood chemistry; F51.01 Primary insomnia; R25.2 Cramp and spasm; E66.9 Obesity, unspecified; Z68.31 Body mass index [BMI] 31.0-31.9, adult | CPT/HCPCS: 96127; 99212 ==

== ENCOUNTER 2025-03-22 11:47 | Outpatient (REF) | payer MEDICARE, SELFPAY ==
--- OUTSIDE RECORDS SUMMARY | 2025-03-22 14:09 | XMS_ITS | Clinical Summary ---
Author Organization [facility] Address [address] [place] [address] Care Team Providers Care Corrugator Supervisor Name Role Phone Roz Ramirez MD Primary [...] age to complete this topic Care Teams Corrugator Supervisor Relationship Specialty Start Date End Date Roz Ramirez MD PCP - General Internal Medicine 12/10/20
[2025-03-22 14:34] LABS: Hematocrit 35.7 % (37.0-47.0); Hemoglobin 12.2 g/dl (12.0-16.0); Mean Corpuscular HGB Conc 34.2 g/dl (31.0-35.0); Mean Corpuscular Hemoglobin 30.3 pg (27.0-33.0); Mean Corpuscular Volume 88.6 fL (80.0-98.0); Mean Platelet Volume 11.4 fL (9.4-12.3); Platelet Count 210 X10*3/uL (160-400); Red Blood Count 4.03 X10*6/uL (4.20-5.50); Red Cell Distribution Width 13.7 % (11.0-16.0); White Blood Count 4.2 X10*3/uL (4.8-10.8)
[2025-03-22 14:50] LABS: Estimated Average Glucose 137 mg/dL; Hemoglobin A1C 148.6277 umol/L; Hemoglobin A1c % 6.4 % (<6.0); Total Hemoglobin (HGBA1C) 3222.6799 umol/L
[2025-03-22 14:54] LABS: Alanine Aminotransferase 34 U/L (0-31); Albumin Level 4.8 g/dL (3.5-5.0); Alkaline Phosphatase 62 U/L (39-117); Anion Gap 13 (12-20); Aspartate Amino Transferase 32 U/L (5-31); Bilirubin Total 0.4 mg/dL (0.0-1.0); Blood Urea Nitrogen 18 mg/dL (9-16); Calcium 9.8 mg/dL (8.4-10.2); Carbon Dioxide 26 mmol/L (22-29); Chloride 106 mmol/L (96-108); Cholesterol 189 mg/dL (<200); Estimated Glomerular Filt Rate > 60; Glucose Random 112 mg/dL (60-115); HDL Cholesterol 55 mg/dL (>40); Iron 77 mcg/dL (30-160); LDL Cholesterol Calculated 106 mg/dL (<100); Percent Iron Saturation 24 % (15-50); Potassium 4.7 mmol/L (3.3-5.1); Sodium 140 mmol/L (135-145); Total Iron Binding Capacity 315 mcg/dL (228-428); Total Protein 7.5 g/dL (6.5-8.0); Triglycerides 144 mg/dL (<150); Unsaturated Iron Binding 238 ug/dL
[2025-03-22 15:27] LABS: Ferritin 69 ng/mL (10-250)
== END 2025-03-22 11:48 | disposition home or self-care (01) ==
LOC: HO.WFDLDS 11:47
PROVIDERS: Visit Provider Nurse Practitioner Family
DX: K80.20 Calculus of gallbladder without cholecystitis without obstruction (principal); K21.00 Gastro-esophageal reflux disease with esophagitis, without bleeding; K76.0 Fatty (change of) liver, not elsewhere classified; E78.2 Mixed hyperlipidemia; I10 Essential (primary) hypertension; F51.01 Primary insomnia; D64.9 Anemia, unspecified; R73.03 Prediabetes; R79.89 Other specified abnormal findings of blood chemistry
CPT/HCPCS: 36415; 80053; 80061; 82306; 82728; 83036; 83540; 85027

== ENCOUNTER 2025-08-01 08:18 | Outpatient (AMB) | payer MEDICARE, SELFPAY ==
--- NOTE | 2025-08-01 08:20 | A.OFFPC_ITS ---
Vital Signs 08/01/25 08:25 Height 5 ft 1.5 in Weight 175 lb BMI 32.5 BP 154/90 H Blood Pressure Location Rt brachial Position Sitting Respiration 14 Pulse 82 Pulse Source Pulse Oximeter Temp 97.1 F Temp Source Oral Pulse Oximetry (%) 99 Oxygen Delivery Method Room Air Intake Visit Reasons: Leg problem Intake Note: Patient c/o left ankle and heel swollen and painful x 2 months. Patient c/o getting worse with walking and hard time sleeping from px on her left ankle. Supervisor Packing Room Required: No Allergies flu vaccine Allergy (Severe, Uncoded 08/01/25 08:32) Hives Medication List - Last Reconciled 08/01/25 by Monik Delgado, ARCHITECTURAL DRAFTSMAN- amlodipine 2.5 mg PO DAILY cyclosporine 0.05% (Restasis) 1 drp ophthalmic (eye) Q12H 30 days lidocaine 4% 1 patch topical DAILY PRN melatonin 6 mg (2 x 3 mg) PO BEDTIME PRN multivitamin with iron 1 tab PO DAILY omeprazole 20 mg PO DAILY PRN propranolol ER 60 mg PO BEDTIME Tobacco use date assessed: 08/01/25 Fall risk assessment: No Falls in past year Last assessed Fall Risk: 08/01/25 Dental Screening Dental Screen Date: 08/01/25 Did you have a dental visit in the last 12 months?: Yes Did you have a dental problem in the last 6 months where you did not have access to dental care?: No Was dental information given to patient?: Patient has dentist HPI HPI Comments History of Present Illness Details 69-year-old female with HLD, anxiety, tr emors, hypertension, chronic daily headaches, tinnitus, eczema, GERD , macular degeneration, sigmois diverticulosis, anemia, Mild hepatic steatosis, Cholelithiasis, L renal cyst Chief Complaint The patient is a 69-year-old female who presents with left ankle and heel pain with swelling for two months, which she feels is getting worse. History The patient is a 69-year-old female presenting with worsening left ankle and heel pain. Left ankle and heel pain: - The patient reports the onset of left ankle and heel pain approximately two months ago, which she feels is worsening. - The symptoms began one day after an ap pointment with a physical therapist who manipulated her body, though she is uncertain if this was the cause. - She describes the pain as a very sharp , needle-like or wire-like sensation located over the posterior bone of the heel. - The ankle is swollen, which she notes worsens throughout the day, becoming like a puffy pillow, and is now most prominent in the posterior aspect. - She is unable to walk properly or bear weight on the heel, and reports the pain is better when going up stairs but worse when coming down. - The patient denies any specific fall, roll, or twisting injury to the ankle. - Home treatments have included salt bat hs and topical creams applied by her , without significant relief. Past Medical History - The patient reports a recent history o f seeing a physical therapist for an unrelated issue just prior to the onset of her ankle pain. Review of Systems - Musculoskeletal: Reports sharp pain in the left ankle and heel for the past two months, which is worsening. - Reports swelling of the left ankle mary t increases during the day. - Reports inability to bear weight on th e left heel, which makes walking difficult. - Reports pain is worse when going down stairs and better when going up. - Reports occasional severe cramps in th e toes and heel. - Denies any specific traumatic event otto ch as a fall, roll, or twist of the ankle. - Neurological: Reports a sharp, needle- like or wire-like pain sensation in the heel. Results Pending Medical Decision Making The patient is a 69-year-old female presenting with a two-month history of debilitating left ankle and heel pain accompanied by swelling, with no clear history of acute trauma. The pain is described as sharp and neuropathic in quality, and physical examination reveals significant tenderness to palpation of the posterior heel and an inability to bear weight. Given the severity, duration of symptoms, and functional limitation, an urgent X-ray of the left foot and ankle is necessary to rule out an occult fracture. Should the X-ray be negative for a fracture, the patient will be referred to a foot and ankle specialist for further evaluation, as the etiology may be related to significant soft tissue or nerve pathology. Plan 1. Left Ankle And Heel Pain - Given the patient's severe pain and sw elling, an X-ray of the left foot and ankle will be obtained today to rule out a fracture. - The [place] location is recommended f or the X-ray due to better accessibility and the on-site availability of ortho supplies if needed. - If the X-ray reveals a fracture, the p atient will be contacted immediately, placed in a boot, and referred to an database management specialist. - If the X-ray is negative, a referral w ill be made to a foot and ankle specialist for further evaluation. - The patient's results will be communic ated via a phone call, , as requested, to the updated phone number provided. Patient Instructions - Please go to our [place] office today to have an X-ray of your left foot and ankle. - We will call you at the phone number y ou provided with the results of your X- ray. - Based on the results, we will either h ave you fitted for a boot and see an orthopedic doctor if there is a fracture, or we will refer you to a foot and ankle specialist if there is no fracture. - Please stop at the motel front desk attendant to check out before you leave. Consent The patient verbally agreed to the plan to obtain an X-ray of the left foot and ankle. The potential outcomes and subsequent steps were discussed, including an urgent referral to orthopedics for a fracture or a referral to a foot and ankle specialist if the X-ray is negative, and the patient was agreeable to this plan. The patient consented to be contacted by phone with the results. Patient was informed and verbally consented to the use of an ambient scribe for clinic note documentation during this visit. [facility] Medical History Right shoulder pain Arthritis of hand Left hip pain Difficulty sleeping Right-sided back pain Macular degeneration Right sciatic nerve pain GERD (gastroesophageal reflux disease) Depression HLD (hyperlipidemia) Hypertension Surgical History History of bladder surgery History of back surgery Social History Housing: House Alcohol intake: never Patient Tobacco Use Status: Never used Tobacco e-Cigarette/Vaping Use: Never Used Second Hand Smoke Exposure: No service: No Current occupational status: retired Current occupational exposures/hazards: No Cognitive needs: No (cane/walker) Hearing needs: No Vision needs: No (glasses) Questionnaire PHQ-9 Over the last 2 weeks, how often have you been bothered by any of the following problems? 1. Little interest or pleasure in doing things: not at all 2. Feeling down, depressed, or hopeless: not at all 3. Trouble falling or staying asleep, or sleeping too much: not at all 4. Feeling tired or having little energy: not at all 5. Poor appetite or overeating: not at all 6. Feeling bad about yourself - or that you are a failure or have let yourself or your family down: not at all 7. Trouble concentrating on things, such as reading the newspaper or watching television: not at all 8. Moving or speaking so slowly that other people could have noticed. Or the opposite - being so fidgety or restless that you have been moving around a lot more than usual: not at all 9. Thoughts that you would be better off or of hurting yourself in some way: not at all Total score: 0 Depression Screening Interpretation: Negative Depression Screening Done: Yes 27442 - PHQ-9 Billing: Yes Source: Developed by Drs. Saad Ballard, Carolina Portillo, Aly Zee and colleagues, with an educational susan from [employer]. Thrive Questionnaire Date Thrive assessed: 08/01/25 I am a: Patient What is your living situation today?: I have a steady place to live Within the past 12 months, did the food you bought not last and you didn't have the money to get more?: Never true Within the past 12 months, did you worry whether your food would run out before you got money to buy more?: Never true Do you have trouble paying for medicines?: No Do you have trouble getting transportation to medical appointments?: No Do you have trouble paying your heating and electricity bill?: No Do you have trouble taking care of your child, family member or friend?: No Do you have trouble with day-to-day activities such as bathing, preparing meals, shopping, managing finances, etc.?: Yes Are you currently unemployed and looking for a job?: No Are you interested in more education?: No Please select the resources that you would like help with: None Currently or been in a relationship where the following occur: No concerns reported THRIVE Score: 0 TIFFANIE-7 AMB Questionnaire TIFFANIE-7 Date TIFFANIE - 7 assessed: 08/01/25 Feeling nervous, anxious, or on edge: 0 = Not at all Not being able to stop or control worryin = Not at all Worrying too much about different things: 0 = Not at all Trouble relaxin = Not at all Being so restless that it is hard to sit still: 0 = Not at all Becoming easily annoyed or irritable: 0 = Not at all Feeling afraid as if something awful might happen: 0 = Not at all Total TIFFANIE-7 score (0-4 normal; 5-9 mild; 10-14 moderate; 15-21 severe): 0 Source: Developed by Drs. Saad Ballard, Carolina Portillo, Aly Zee and colleagues, with an educational susan from [employer]. TIFFANIE-7 Assessment Billing TIFFANIE-7 Assessment Tool: TIFFANIE-7 Assessment 84415 Physical exam (Primary Care) Vital Signs: Last Vital Signs Temp 97.1 F 08/01/25 08:25 Pulse 82 08/01/25 08:25 Resp 14 08/01/25 08:25 BP 154/90 H 08/01/25 08:25 Pulse Ox 99 08/01/25 08:25 Oxygen Delivery Method Room Air 08/01/25 08:25 BMI result Body Mass Index 32.5 Tobacco/Smoking Status: Tobacco use Status Tobacco use date assessed 08/01/25 08/01/25 08:28 Patient Tobacco Use Status Never used Tobacco 08/01/25 08:28 e-Cigarette/Vaping Use Never Used 08/01/25 08:28 PHQ-9: PHQ-9 Score PHQ-9: Total score 0 08/01/25 08:28 Depression Screening Interpretation: Negative Thrive Assessment: Date of Thrive Assessment Date Thrive assessed 08/01/25 08/01/25 08:28 Currently or been in a relationship where the following occur: No concerns reported Extrem General: Yes normal to inspection, Yes capillary refill normal, Yes no pedal edema and Yes no calf tenderness Left lower extremity: no joint enlargement, ankle Details: normal to inspection, tenderness Location: of the lateral malleolus, of the anterior talofibular ligament, of the achilles tendon and anterolaterally, swelling Details: anteriorly, abnormal ROM Details: pain with active ROM Details: with plantar flexion and pain with passive ROM and achilles tendon exam abnormal Details: tenderness to palpation and foot Details: normal capillary refill, normal to inspection and tenderness Location: of the dorsal foot Location: proximally and laterally, of the calcaneus Details: with squeeze, of the lateral foot Location: in the mid-section, of the medial foot Location: in the mid-section and of the mid foot Location: laterally and dorsally Coding Level of Care Code Est Pt Level 4 (91340) Complex EM visit Add On G2211 Diagnoses Pain in left ankle and joints of left foot M25.572 Additional Codes TIFFANIE-7 Assessment Billing - TIFFANIE-7 Assessment Tool: TIFFANIE-7 Assessment 85849 ([id number]) PHQ-9 - 73277 - PHQ-9 Billing: Yes ([id number]) Assessment & Plan Assessment & Plan (1) Pain in left ankle and joints of left foot: Code(s): M25.572 - Pain in left ankle and joints of left foot Category: Medical Plan . Orders: Orders XR ankle LT min 3V Today M25.572 - Pain in left ankle and joints of left foot XR foot LT min 3V Today M25.572 - Pain in left ankle and joints of left foot
[2025-08-01 08:25] VITALS: BP 154/90; PULSE 82; RESP 14; TEMP 36.2; O2SAT 99; BMI 32.5
--- OUTSIDE RECORDS SUMMARY | 2025-08-01 08:26 | XMS_ITS | Clinical Summary ---
Author Organization [employer] Address [address] [place] [address] Care Team Providers Care Boilermaker Mechanic Name Role Phone Unavailable Primary Care [...] COVID-19 Vaccine (1 - 2023-2 5 season) 2025 Influenza Vaccine (#1) 2025 Dental X-Ray: Full Mouth 12/25/2025 12/24/2022 DTaP/Tdap/Td [...] patient's age to complete this topic Meningococcal B Vaccine Aged Out No l onger eligible based on patient's age to complete [...] Relevant to Health Maintenance Insurance [address] [place] [address] [place]
--- OUTSIDE RECORDS SUMMARY | 2025-08-01 08:26 | XMS_ITS | Clinical Summary ---
Author Organization [facility] Address [address] [place] [address] Care Team Providers Care Rn Admit Name Role Phone Roz Ramirez MD Primary [...] 1 - PCV) 2019 Influenza Vaccine (#1) 2025 DTap / Tdap / Td (2 [...] age to complete this topic Care Teams Rn Admit Relationship Specialty Start Date End Date Roz Ramirez MD PCP - General Internal Medicine 12/10/20
--- OUTSIDE RECORDS SUMMARY | 2025-08-01 08:26 | XMS_ITS | Clinical Summary ---
Author Organization [facility] Address [address] [place] [address] Care Team Providers Care Tobacco Sieve Operator Name Role Phone Monik Wright Primary Care Provider [phone] Allergies No known active allergies Medications amLODIPine [...] 75 06/22/2016 1:55 PM EDT Temperature 36.5 C (97.7 F) 06/22/2016 1:55 PM EDT Respiratory Rate - - Oxygen Saturation - - Inhaled Oxygen Concentration - - Weight 73.9 kg (163 lb) 06/22/2016 1:55 PM EDT Height 157.5 cm (5' 2 ) 06/22/2016 1:55 PM EDT Body Mass Index 29.81 06/22/2016 1:55 PM EDT Plan of Treatment Health Maintenance Due Date Last Done Comments Colonoscopy 1954 FOBT / Fit Test 1954 Sigmoidoscopy 1954 Mammogram 1994 Osteoporosis Screening 2004 Pneumococcal Vaccine: 50+ Years (1 of 1 - PCV) 2004 Zoster Vaccines (1 of 2) 2004 Alcohol/Substance Use Screening 09/27/2024 Depression Screening and Follow-Up 09/27/2024 Health Care Proxy Review 09/27/2024 Social Drivers of Health Annual Screening 09/27/2024 Cologuard 02/16/2025 02/16/2022, 02/16/2022 Colon Cancer Screening 02/16/2025 COVID-19 Vaccine (1 - 2024-2 6 season) 2025 Influenza Vaccine (#1) 2025 DTaP,Tdap,and Td Vaccines (2 - Td or Tdap) 06/07/2027 06/07/2017 RSV Vaccine (60+ years old a nd patients) (1 - 1-dose 75+ series) 2029 Hepatitis C Screening Completed 06/07/2017 Hepatitis B Vaccines Aged Out No long er eligible based on patient's age to complete this topic Insurance [facility] Care Teams Tobacco Sieve Operator Relationship Specialty Start Date End Date Kyle Monik [address] [place] [address] PCP - General 04/17/24
--- OUTSIDE RECORDS SUMMARY | 2025-08-01 08:26 | XMS_ITS | Clinical Summary ---
Author Organization [facility] Address [address] [place] [address] Care Team Providers Care Appliance Sales Associate Name Role Phone Kelly Pritchett PA-C Primary Care Provider [phone] Source Comments PLEASE NOTE, if this patient [...] 87 06/07/2017 3:22 PM EDT Temperature 36.6 C (97.8 F) 06/07/2017 3:22 PM EDT Respiratory Rate 16 06/07/2017 3:22 PM EDT Oxygen Saturation 98% 06/07/2017 3:22 PM EDT Inhaled Oxygen Concentration - - Weight 76.2 kg (168 lb) 06/07/2017 3:22 PM EDT Height 156 cm (5' 1.42 ) 03/05/2015 1:13 PM EDT Body Mass Index 31.31 03/05/2015 1:13 PM EDT Plan of Treatment Not on file Insurance [employer] MEDICAID Care Teams Appliance Sales Associate Relationship Specialty Start Date End Date Kelly Pritchett PA-C [address] [place] [address] PCP - General Internal Medicine 03/05/15
== END 2025-08-01 08:43 | disposition home or self-care (01) ==
LOC: HO.HMCFM 08:18
PROVIDERS: PCP Nurse Practitioner Family; Visit Provider Nurse Practitioner Family
DX: M25.572 Pain in left ankle and joints of left foot (principal)

== ENCOUNTER 2025-08-01 08:18 | Outpatient (REF) | payer MEDICARE, SELFPAY ==
--- NOTE | ~2025-08-01 | XR_ITS ---
EXAMINATION: X-ray left ankle X-ray left foot CLINICAL INFORMATION: Pain or Achilles heel, lateral malleolus, metatarsals COMPARISON: None TECHNIQUE: Ankle 3 views. Foot 3 views. FINDINGS: Ankle: No visible acute fracture, dislocation or suspicious osseous lesion. Ankle mortise is maintained. Talar dome appears intact. Large posterior calcaneal spur. Moderate plantar calcaneal spur. No significant ankle joint effusion. No abnormal soft tissue calcifications. Foot: No visible acute fracture, dislocation or suspicious osseous lesion. Bony irregularity of the proximal fifth metatarsal could be related to degenerative changes, sequela of remote trauma. Tarsometatarsal alignment is maintained. Mild first MTP arthritis. No erosions. No abnormal soft tissue calcifications. Calcaneal spurring as above.. XR/XR ankle LT min 3V IMPRESSION: 1. No radiographic evidence of acute osseous findings... 2. Proximal fifth metatarsal findings could be related to degenerative changes, sequela of remote trauma. 3. Prominent calcaneal spurring. Electronically signed by: Paul Etienne MD 08/01/2025 04:05 PM [facility]
--- NOTE | ~2025-08-01 | XR_ITS ---
EXAMINATION: X-ray left ankle X-ray left foot CLINICAL INFORMATION: Pain or Achilles heel, lateral malleolus, metatarsals COMPARISON: None TECHNIQUE: Ankle 3 views. Foot 3 views. FINDINGS: Ankle: No visible acute fracture, dislocation or suspicious osseous lesion. Ankle mortise is maintained. Talar dome appears intact. Large posterior calcaneal spur. Moderate plantar calcaneal spur. No significant ankle joint effusion. No abnormal soft tissue calcifications. Foot: No visible acute fracture, dislocation or suspicious osseous lesion. Bony irregularity of the proximal fifth metatarsal could be related to degenerative changes, sequela of remote trauma. Tarsometatarsal alignment is maintained. Mild first MTP arthritis. No erosions. No abnormal soft tissue calcifications. Calcaneal spurring as above.. XR/XR foot LT min 3V IMPRESSION: 1. No radiographic evidence of acute osseous findings... 2. Proximal fifth metatarsal findings could be related to degenerative changes, sequela of remote trauma. 3. Prominent calcaneal spurring. Electronically signed by: Paul Etienne MD 08/01/2025 04:05 PM [facility]
--- OUTSIDE RECORDS SUMMARY | 2025-08-01 18:18 | XMS_ITS | Clinical Summary ---
Author Organization [facility] Address [address] [place] [address] Care Team Providers Care Drafter Geophysical Name Role Phone Monik Wright Primary Care Provider [phone] Allergies No known active allergies Medications amLODIPine [...] patient's age to complete this topic Insurance [facility] Care Teams Drafter Geophysical Relationship Specialty Start Date End Date Kyle Monik [address] [place] [address] PCP - General 04/17/24
--- OUTSIDE RECORDS SUMMARY | 2025-08-01 18:18 | XMS_ITS | Clinical Summary ---
Author Organization [facility] Address [address] [place] [address] Care Team Providers Care Engine Test Cell Technician Name Role Phone Roz Ramirez MD Primary [...] age to complete this topic Care Teams Engine Test Cell Technician Relationship Specialty Start Date End Date Roz Ramirez MD PCP - General Internal Medicine 12/10/20
--- OUTSIDE RECORDS SUMMARY | 2025-08-01 18:18 | XMS_ITS | Clinical Summary ---
Author Organization [facility] Address [address] [place] [address] Care Team Providers Care Med Surg Rn Name Role Phone Kelly Pritchett PA-C Primary Care Provider [phone] Source Comments PLEASE NOTE, if this patient [...] Insurance [employer] MEDICAID Care Teams Med Surg Rn Relationship Specialty Start Date End Date Kelly Pritchett PA-C [address] [place] [address] PCP - General Internal Medicine 03/05/15
== END 2025-08-01 08:19 | disposition home or self-care (01) ==
LOC: HO.XRAY 08:18
PROVIDERS: PCP Nurse Practitioner Family; Visit Provider Nurse Practitioner Family
DX: M25.572 Pain in left ankle and joints of left foot (principal); Z13.31 Encounter for screening for depression; Z13.39 Encounter for screening examination for other mental health and behavioral disorders
CPT/HCPCS: 73610; 73630; 96127; 99212

== ENCOUNTER → 2025-08-01 15:28 | Outpatient (BNV) | payer MEDICARE, SELFPAY | PROVIDERS: PCP Nurse Practitioner Family; Visit Provider Radiology Diagnostic Ultrasound | DX: M77.32 Calcaneal spur, left foot (principal) | CPT/HCPCS: 73610; 73630 ==

== ENCOUNTER 2025-08-08 08:14 | Outpatient (AMB) | payer MEDICARE, SELFPAY ==
--- OUTSIDE RECORDS SUMMARY | 2025-08-08 08:19 | XMS_ITS | Clinical Summary ---
Author Organization [facility] Address [address] [place] [address] Care Team Providers Care Environmental Consultant Name Role Phone Kelly Pritchett PA-C Primary Care Provider [phone] Source Comments PLEASE NOTE, if this patient [...] Insurance [employer] NET MEDICAID Care Teams Environmental Consultant Relationship Specialty Start Date End Date Kelly Pritchett PA-C [address] [place] [address] PCP - General Internal Medicine 03/05/15
--- OUTSIDE RECORDS SUMMARY | 2025-08-08 08:19 | XMS_ITS | Clinical Summary ---
Author Organization [facility] Address [address] [place] [address] Care Team Providers Care Psychology Tech Name Role Phone Roz Ramirez MD [...] age to complete this topic Care Teams Psychology Tech Relationship Specialty Start Date End Date Roz Ramirez MD PCP - General Internal Medicine 12/10/20
--- OUTSIDE RECORDS SUMMARY | 2025-08-08 08:19 | XMS_ITS | Clinical Summary ---
Author Organization [employer] Address [address] [place] [address] Care Team Providers Care Manager Marketing Communications Name Role Phone Unavailable Primary Care Provider [...] Relevant to Health Maintenance Insurance [address] [place] [address] [place]
--- OUTSIDE RECORDS SUMMARY | 2025-08-08 08:20 | XMS_ITS | Clinical Summary ---
Author Organization [facility] Address [address] [place] [address] Care Team Providers Care Spool Sander Name Role Phone Monik Wright Primary Care Provider [phone] Allergies No known active allergies Medications amLODIPine [...] 6 season) 2025 Influenza Vaccine (#1) 2025 Fall Risk Screening 01/03/2026 01/03/2025 DTaP,Tdap,and Td Vaccines (2 - Td or Tdap) 06/07/2027 06/07/2017 RSV Vaccine (60+ years old a nd patients) (1 - 1-dose 75+ series) 2029 Hepatitis C Screening Completed 06/07/2017 Hepatitis B Vaccines Aged Out No long er eligible based on patient's age to complete this topic Insurance [facility] Care Teams Spool Sander Relationship Specialty Start Date End Date Monik Wright [address] [place] [address] PCP - General 04/17/24
[2025-08-08 08:21] VITALS: BMI 33.1
--- NOTE | 2025-08-08 08:21 | A.OFFVIS_ITS ---
Vital Signs 08/08/25 08:21 Height 5 ft 1 in Weight 175 lb BMI 33.1 Intake Visit Reasons: Calcaneal spur, left foot Intake Note: Kyara is a 69 year old female who presents today as a new patient for an evaluation of her calcaneal spur of her left foot. She states the pain has been going on for about 2 months and she describes the pain as a pin and needles sensation in her heel. She states she has tried Epson salt soaks,cayenne pepper, baking soda, diclofenac and she has found slight relief for her symptoms. She has noted a burning sensation in bilateral feet more so in the left. Allergies flu vaccine Allergy (Severe, Uncoded 08/01/25 08:32) Hives HPI Comments Details: The patient is a 69-year-old female with a past medical history as seen below presenting with left foot pain and difficulty walking. The pain has been present for more than two months without any known injury. The patient describes the pain as being located in the back of the heel, with a burning sensation extending to the calf and swelling in the lower extremity. The patient reports that the pain was initially severe, even causing discomfort when wearing pajamas without socks due to pressure in the back of the heel, but has since lessened slightly. She experiences a burning sensation and swelling in both legs, which she manages by soaking her feet and using [id number] creams with the ingredient of crushed peppers. She denies any other pedal concerns. Patient takes Tylenol PRN for pain. [facility] Medical History (Updated 08/08/25 @ 09:07 by Sandra Brock DPM) Hammertoes of both feet Displaced fracture of fifth metatarsal bone, left foot, initial encounter for closed fracture Insertional Achilles tendinopathy Left leg pain Left foot pain Hallux valgus Other enthesopathy of left foot and ankle Right shoulder pain Arthritis of hand Left hip pain Difficulty sleeping Right-sided back pain Macular degeneration Right sciatic nerve pain GERD (gastroesophageal reflux disease) Depression HLD (hyperlipidemia) Hypertension Surgical History (Updated 12/14/24 @ 14:54 by JOAN Amin-) History of bladder surgery History of back surgery Social History Housing: House Alcohol intake: never Patient Tobacco Use Status: Never used Tobacco e-Cigarette/Vaping Use: Never Used Second Hand Smoke Exposure: No service: No Current occupational status: retired Current occupational exposures/hazards: No Cognitive needs: No (cane/walker) Hearing needs: No Vision needs: No (glasses) Review of Systems Const Details: - Musculoskeletal: Reports pain in the back of the heel, burning sensation in the calf, and swelling in the lower extremity for more than two months. - Neurological: Reports burning sensation and nerve pain to bilateral lower extremities, denies any cracking or popping sounds on movement. All systems reviewed & are unremarkable except as noted in HPI and below Physical Exam Vital Signs: BMI result Body Mass Index 33.1 Extrem Other: Left lower extremity focused physical exam: Derm: No open lesions, abrasions, or wounds noted. No ecchymosis or discoloration noted. No clinical signs of infection noted. No maceration or hyperpigmentation noted. Vascular: DP/PT pulses palpable. Capillary refill time less than 3 seconds. Temperature gradient warm to warm. Pedal hair absent. No varicosities noted. Mild edema noted to the lateral aspect of the foot and heel. Neuro: Protective sensation is grossly intact to light touch, although patient states she experiences pins and needles sensation with burning bilaterally. MSK: Pain on palpation to the posterior aspect of the heel at the area of the Achilles tendon insertion point. Negative Ugalde's test. Mild pain along the lateral aspect of the foot along the 5th metatarsal base. No crepitus or fluctuance noted. Bilateral hammertoe and hallux valgus deformities. Mildly antalgic gait unassisted noted. Office Procedures AMB Podiatry Dressing Details of Procedure: Applied a stockinette, cast padding, Vj bandage to the left lower extremity with the use of a cam boot. 64616 - Short leg splint Procedure code (CPT) selection complete Results Reviewed Results Reviewed: Ordered left foot weightbearing x-rays three-view to be performed prior to next visit. Podiatry read of left foot x-ray (08/01/2025): Hallux valgus deformity with 1st IM angle measuring approximately 13 degrees. Avulsion fracture of the styloid process of the 5th metatarsal. Os peroneum noted. First MPJ and 5th MPJ joint space narrowing noted. Tailor's bunion deformity noted. Hammertoe deformities of 2 through 5 noted. Mild osteophytic formation noted to the navicular medial cuneiform and base of 1st met. Left foot x-ray (08/01/2025): FINDINGS: Foot: No visible acute fracture, dislocation or suspicious osseous lesion. Bony irregularity of the proximal fifth metatarsal could be related to degenerative changes, sequela of remote trauma. Tarsometatarsal alignment is maintained. Mild first MTP arthritis. No erosions. No abnormal soft tissue calcifications. Calcaneal spurring as above.. IMPRESSION: 1. No radiographic evidence of acute osseous findings... 2. Proximal fifth metatarsal findings could be related to degenerative changes, sequela of remote trauma. 3. Prominent calcaneal spurring. Podiatry read of Left ankle x-ray (08/01/2025): Bone spur noted to the posterior and plantar aspect of the calcaneus. Kager's triangle partially intact. Joint spacing within normal limits. Left ankle x-ray (08/01/2025): FINDINGS: Ankle: No visible acute fracture, dislocation or suspicious osseous lesion. Ankle mortise is maintained. Talar dome appears intact. Large posterior calcaneal spur. Moderate plantar calcaneal spur. No significant ankle joint effusion. No abnormal soft tissue calcifications. IMPRESSION: 1. No radiographic evidence of acute osseous findings... 2. Proximal fifth metatarsal findings could be related to degenerative changes, sequela of remote trauma. 3. Prominent calcaneal spurring. Assessment & Plan Assessment & Plan (1) Pre-diabetes: Code(s): R73.03 - Prediabetes Category: Medical (2) Calcaneal spur of left foot: Code(s): M77.32 - Calcaneal spur, left foot Category: Medical (3) Other enthesopathy of left foot and ankle: Code(s): M77.52 - Other enthesopathy of left foot and ankle Category: Medical (4) Hallux valgus: Code(s): M20.10 - Hallux valgus (acquired), unspecified foot Category: Medical (5) Left foot pain: Code(s): M79.672 - Pain in left foot Category: Medical (6) Left leg pain: Code(s): M79.605 - Pain in left leg Category: Medical (7) Insertional Achilles tendinopathy: Code(s): M76.60 - Achilles tendinitis, unspecified leg Category: Medical (8) Displaced fracture of fifth metatarsal bone, left foot, initial encounter for closed fracture: Code(s): S92.352A - Displaced fracture of fifth metatarsal bone, left foot, initial encounter for closed fracture Category: Medical (9) Hammertoes of both feet: Code(s): M20.41 - Other hammer toe(s) (acquired), right foot; M20.42 - Other hammer toe(s) (acquired), left foot Category: Medical Plan Patient was informed and verbally consented to the use of an ambient scribe for clinic note documentation during this visit. I discussed with the patient the presence of a bone spur and Almaz's deformity, which are causing irritation and swelling of the Achilles tendon. I explained that wearing a cam boot with heel lifts will help stabilize the foot and relieve pressure on the tendon. We also talked about the avulsion fracture in the foot and the importance of wearing the boot to prevent displacement of the fracture fragment. I recommended stretching exercises for the Achilles tendon and prescribed a 5% lidocaine patch for some pain relief. We agreed on follow-up x-rays at [facility] before the next visit in two weeks to monitor the healing process. - Applied a stockinette, cast padding, and Vj bandage to the left lower extremity with the use of a cam boot with heel lifts. - Patient is to leave the dressing clean dry and intact. Patient may remove cam boot while resting but is to wear Cam boot while ambulating and with activity. - Recommend stretching exercises for the Achilles tendon to prevent further irritation and swelling. Provided patient with instructional form. - Prescribed a 5% lidocaine patch for nerve pain management. - Ordered left foot three-view weight-bearing x-rays to be performed prior to next visit. - Continue Tylenol PRN for pain. RTC in 2 weeks. Orders: Orders AMB Podiatry Dressing Today M76.60 - Achilles tendinitis, unspecified leg, M77.32 - Calcaneal spur, left foot, M77.52 - Other enthesopathy of left foot and ankle, M79.605 - Pain in left leg, M79.672 - Pain in left foot, S92.352A - Displaced fracture of fifth metatarsal bone, left foot, initial encounter for closed fracture XR foot LT min 3V Today M20.10 - Hallux valgus (acquired), unspecified foot, M76.60 - Achilles tendinitis, unspecified leg, M77.32 - Calcaneal spur, left foot, M77.52 - Other enthesopathy of left foot and ankle, M79.605 - Pain in left leg, M79.672 - Pain in left foot, R73.03 - Prediabetes, S92.352A - Displaced fracture of fifth metatarsal bone, left foot, initial encounter for closed fracture Medications: New lidocaine 5% (Lidocan V) leave on most painful area for up to 12 hrs 2 patches topical DAILY 30 ea 1RF M76.60 - Achilles tendinitis, unspecified leg, M77.32 - Calcaneal spur, left foot, M77.52 - Other enthesopathy of left foot and ankle, M79.605 - Pain in left leg, M79.672 - Pain in left foot, S92.352A - Displaced fracture of fifth metatarsal bone, left foot, initial encounter for closed fracture Discontinued lidocaine 4% Discontinued Reason: Change Referral Type 1 patch topical DAILY PRN 30 ea 12RF pain Coding Level of Care Code New Pt Level 4 (39468) Diagnoses Pre-diabetes R73.03 Calcaneal spur of left foot M77.32 Other enthesopathy of left foot and ankle M77.52 Hallux valgus M20.10 Left foot pain M79.672 Left leg pain M79.605 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 Displaced fracture of fifth metatarsal bone, left foot, initial encounter for closed fracture S92.352A Hammertoes of both feet M20.41; M20.42 CPT Codes Podiatry Dressing - CPT: 33291 - Short leg splint ([id number]) Time Spent (min) 50
== END 2025-08-08 09:00 | disposition home or self-care (01) ==
LOC: HO.HPODS 08:15
PROVIDERS: PCP Nurse Practitioner Family; Visit Provider Student in an Organized Health Care Education/Training Program
DX: R73.03 Prediabetes (principal); M77.32 Calcaneal spur, left foot; M77.52 Other enthesopathy of left foot and ankle; M20.10 Hallux valgus (acquired), unspecified foot; M79.672 Pain in left foot; M79.605 Pain in left leg; M76.60 Achilles tendinitis, unspecified leg; S92.352A Displaced fracture of fifth metatarsal bone, left foot, initial encounter for closed fracture; M20.41 Other hammer toe(s) (acquired), right foot; M20.42 Other hammer toe(s) (acquired), left foot
CPT/HCPCS: 29515; 99204

== ENCOUNTER → 2025-08-08 08:14 | Outpatient (BNVA) | payer MEDICARE, SELFPAY | PROVIDERS: PCP Nurse Practitioner Family; Visit Provider Student in an Organized Health Care Education/Training Program | DX: R73.03 Prediabetes (principal); M77.32 Calcaneal spur, left foot; M77.52 Other enthesopathy of left foot and ankle; M20.10 Hallux valgus (acquired), unspecified foot; M76.60 Achilles tendinitis, unspecified leg; S92.352A Displaced fracture of fifth metatarsal bone, left foot, initial encounter for closed fracture; M20.41 Other hammer toe(s) (acquired), right foot; M20.42 Other hammer toe(s) (acquired), left foot; X58.XXXA Exposure to other specified factors, initial encounter; Y93.9 Activity, unspecified; Y92.9 Unspecified place or not applicable; Y99.9 Unspecified external cause status | CPT/HCPCS: 29515; 99202 ==

== ENCOUNTER 2025-08-20 09:21 | Outpatient (REF) | payer MEDICARE, SELFPAY ==
--- NOTE | ~2025-08-20 | XR_ITS ---
EXAMINATION: XR FOOT, LEFT CLINICAL INFORMATION: M77.32 - Calcaneal spur, left foot COMPARISON: August 01, 2025 TECHNIQUE: AP, lateral, and oblique views of the left foot. FINDINGS: Again seen is mild asymmetric joint space narrowing in the first MTP joint with small lateral osteophytes. Again seen is irregularity and lucency with corticated margins through the lateral cortex of the fifth metatarsal tuberosity likely related to a remote avulsion fracture. There is an os trigonum. There are mild degenerative changes in the dorsal midfoot with osteophytes. There is a moderate enthesophyte at the Achilles attachment onto calcaneus and a small the mid size plantar fascial calcaneal spur. XR/XR foot LT min 3V IMPRESSION: No acute abnormality. Calcaneal spurs Suspected remote avulsion fracture involving the fifth metatarsal tuberosity. Degenerative changes in the dorsal midfoot and first MTP joint. Electronically signed by: Nain Cervantes MD 08/20/2025 11:41 AM POP
--- OUTSIDE RECORDS SUMMARY | 2025-08-20 10:32 | XMS_ITS | Clinical Summary ---
Author Organization [facility] Address [address] [place] [address] Care Team Providers Care Manager Cable Name Role Phone Roz Ramirez MD Primary [...] age to complete this topic Care Teams Manager Cable Relationship Specialty Start Date End Date Roz Ramirez MD PCP - General Internal Medicine 12/10/20
--- OUTSIDE RECORDS SUMMARY | 2025-08-20 10:32 | XMS_ITS | Clinical Summary ---
Author Organization [employer] Address [address] [place] [address] Care Team Providers Care Instructor Programmable Controllers Name Role Phone Unavailable Primary Care Provider [...] Screening 01/05/2024 01/04/2023 COVID-19 Vaccine (1 - 2024-2 6 season) 2025 Influenza Vaccine (#1) 2025 Dental [...] Relevant to Health Maintenance Insurance [address] [place] [address] [place] AD[place]
--- OUTSIDE RECORDS SUMMARY | 2025-08-20 10:32 | XMS_ITS | Clinical Summary ---
Author Organization [facility] Address [address] [place] [address] Care Team Providers Care Senior Sales Director Name Role Phone Monik Wright Primary Care Provider [phone] Allergies No known active allergies Medications amLODIPine [...] 02/16/2022 Colon Cancer Screening 02/16/2025 Influenza Vaccine (#1) 2025 COVID-19 Vaccine (1 - 2024-2 6 season) 2025 Fall Risk Screening 01/03/2026 01/03/2025 DTaP,Tdap,and Td Vaccines (2 - Td or Tdap) 06/07/2027 06/07/2017 RSV Vaccine (60+ years old a nd patients) (1 - 1-dose 75+ series) 2029 Hepatitis C Screening Completed 06/07/2017 Hepatitis B Vaccines Aged Out No long er eligible based on patient's age to complete this topic Insurance [facility] Care Teams Senior Sales Director Relationship Specialty Start Date End Date Monik Wright [address] [place] [address] PCP - General 04/17/24
== END 2025-08-20 09:22 | disposition home or self-care (01) ==
LOC: HO.XRAY 09:21
PROVIDERS: PCP Nurse Practitioner Family; Visit Provider Student in an Organized Health Care Education/Training Program
DX: S92.352A Displaced fracture of fifth metatarsal bone, left foot, initial encounter for closed fracture (principal); M77.32 Calcaneal spur, left foot; M77.52 Other enthesopathy of left foot and ankle; M20.10 Hallux valgus (acquired), unspecified foot; M79.605 Pain in left leg; M76.60 Achilles tendinitis, unspecified leg; R73.03 Prediabetes
CPT/HCPCS: 73630

== ENCOUNTER → 2025-08-20 09:31 | Outpatient (BNV) | payer MEDICARE, SELFPAY | PROVIDERS: PCP Nurse Practitioner Family; Visit Provider Radiology Diagnostic Radiology | DX: M77.32 Calcaneal spur, left foot (principal) | CPT/HCPCS: 73630 ==

== ENCOUNTER 2025-08-22 09:04 | Outpatient (AMB) | payer MEDICARE, SELFPAY ==
[2025-08-22 09:21] VITALS: BMI 33.1
--- NOTE | 2025-08-22 09:21 | A.OFFVIS_ITS ---
Vital Signs 08/22/25 09:21 Height 5 ft 1 in Weight 175 lb BMI 33.1 Intake Visit Reasons: f/u xrays; 5th met fx and achilles tendinitis Intake Note: Kyara is a 69 year old female who presents today for a follow up of her calcaneal spur of her left foot and Almaz's deformity, which are causing irritation and swelling of the Achilles tendon. a stockinette, cast padding, and Vj bandage were applied to the left lower extremity with the use of a cam boot with heel lifts. Patient was instructed to to leave the dressing clean dry and intact. Patient may remove cam boot while resting but is to wear Cam boot while ambulating and with activity. Stretching exercises were recommended and patient was prescribed 5% lidocaine patches for nerve pain management. X-rays were or dered and are in patient?s chart. Patient was prescribed Tylenol PRN for the pain. Patient reports she has not been using the patches and she has been utilizing the cam boot. Patient states when she is standing for an extended period of time she feels pain in her left heel. Allergies flu vaccine Allergy (Severe, Uncoded 08/01/25 08:32) Hives HPI Comments Details: The patient is a 69 year old individual presenting for a follow-up of an avulsion fracture to the left 5th metatarsal and plantar fasciitis/Achilles tendinitis. The patient has been consistently wearing a cam boot. Patient was unable to apply lidocaine patches to the foot. Patient states her symptoms continue to resolve and no longer feels pain along the left 5th metatarsal. Patient states she experiences intermittent mild pain to the left heel, but states her symptoms are resolved today. She denies any new pedal injuries. She denies any other pedal concerns. Patient was accompanied by her granddaughter. [facility] Medical History (Updated 08/08/25 @ 09:07 by Sandra Brock DPM) Hammertoes of both feet Displaced fracture of fifth metatarsal bone, left foot, initial encounter for closed fracture Insertional Achilles tendinopathy Left leg pain Left foot pain Hallux valgus Other enthesopathy of left foot and ankle Right shoulder pain Arthritis of hand Left hip pain Difficulty sleeping Right-sided back pain Macular degeneration Right sciatic nerve pain GERD (gastroesophageal reflux disease) Depression HLD (hyperlipidemia) Hypertension Surgical History (Updated 12/14/24 @ 14:54 [facility] History of bladder surgery History of back surgery Social History Housing: House Alcohol intake: never Patient Tobacco Use Status: Never used Tobacco e-Cigarette/Vaping Use: Never Used Second Hand Smoke Exposure: No service: No Current occupational status: retired Current occupational exposures/hazards: No Cognitive needs: No (cane/walker) Hearing needs: No Vision needs: No (glasses) Review of Systems Const Details: - Musculoskeletal: Reports significant improvement in symptoms to the left foot. All systems reviewed & are unremarkable except as noted in HPI and below Physical Exam Vital Signs: BMI result Body Mass Index 33.1 Extrem Other: Left lower extremity focused physical exam: Derm: No open lesions, abrasions, or wounds noted. No ecchymosis or discoloration noted. No clinical signs of infection noted. No maceration or hyperpigmentation noted. Vascular: DP/PT pulses palpable. Capillary refill time less than 3 seconds. Temperature gradient warm to warm. Pedal hair absent. No varicosities noted. Mild edema noted to the lateral aspect of the foot and heel. Neuro: Protective sensation is grossly intact to light touch, although patient states she experiences pins and needles sensation with burning bilaterally. MSK: Minimal Pain on palpation to the posterior aspect of the heel at the area of the Achilles tendon insertion point. Negative Ugalde's test. No pain along the lateral aspect of the foot along the 5th metatarsal base. No crepitus or fluctuance noted. Bilateral hammertoe and hallux valgus deformities. Nonantalgic gait unassisted noted. MMT 5/5. Results Reviewed Results Reviewed: Podiatry read of left foot x-ray (08/20/2025): Hallux valgus deformity with 1st IM angle measuring approximately 13 degrees. Avulsion fracture of the styloid p rocess of the 5th metatarsal, healing, with increased bone callus formation. Os peroneum noted. First MPJ and 5th MPJ joint space narrowing noted. Tailor's bunion deformity noted. Hammertoe deformities of 2 through 5 noted. Mild osteophytic formation noted to the navicular medial cuneiform and base of 1st met. Left foot x-ray (08/20/2025): FINDINGS: Again seen is mild asymmetric joint space narrowing in the first MTP joint with small lateral osteophytes. Again seen is irregularity and lucency with corticated margins through the lateral cortex of the fifth metatarsal tuberosity likely related to a remote avulsion fracture. There is an os trigonum. There are mild degenerative changes in the dorsal midfoot with osteophytes. There is a moderate enthesophyte at the Achilles attachment onto calcaneus and a small the mid size plantar fascial calcaneal spur. IMPRESSION: No acute abnormality. Calcaneal spurs Suspected remote avulsion fracture involving the fifth metatarsal tuberosity. Degenerative changes in the dorsal midfoot and first MTP joint. Podiatry read of left foot x-ray (08/01/2025): Hallux valgus deformity with 1st IM angle measuring approximately 13 degrees. Avulsion fracture of the styloid process of the 5th metatarsal. Os peroneum noted. First MPJ and 5th MPJ joint space narrowing noted. Tailor's bunion deformity noted. Hammertoe deformities of 2 through 5 noted. Mild osteophytic formation noted to the navicular medial cuneiform and base of 1st met. Left foot x-ray (08/01/2025): FINDINGS: Foot: No visible acute fracture, dislocation or suspicious osseous lesion. Bony irregularity of the proximal fifth metatarsal could be related to degenerative changes, sequela of remote trauma. Tarsometatarsal alignment is maintained. Mild first MTP arthritis. No erosions. No abnormal soft tissue calcifications. Calcaneal spurring as above.. IMPRESSION: 1. No radiographic evidence of acute osseous findings... 2. Proximal fifth metatarsal findings could be related to degenerative changes, sequela of remote trauma. 3. Prominent calcaneal spurring. Podiatry read of Left ankle x-ray (08/01/2025): Bone spur noted to the posterior and plantar aspect of the calcaneus. Kager's triangle partially intact. Joint spacing within normal limits. Left ankle x-ray (08/01/2025): FINDINGS: Ankle: No visible acute fracture, dislocation or suspicious osseous lesion. Ankle mortise is maintained. Talar dome appears intact. Large posterior calcaneal spur. Moderate plantar calcaneal spur. No significant ankle joint effusion. No abnormal soft tissue calcifications. IMPRESSION: 1. No radiographic evidence of acute osseous findings... 2. Proximal fifth metatarsal findings could be related to degenerative changes, sequela of remote trauma. 3. Prominent calcaneal spurring. Assessment & Plan Assessment & Plan (1) Pain in left ankle and joints of left foot: Code(s): M25.572 - Pain in left ankle and joints of left foot Category: Medical (2) Calcaneal spur of left foot: Code(s): M77.32 - Calcaneal spur, left foot Category: Medical (3) Other enthesopathy of left foot and ankle: Code(s): M77.52 - Other enthesopathy of left foot and ankle Category: Medical (4) Hallux valgus: Code(s): M20.10 - Hallux valgus (acquired), unspecified foot Category: Medical (5) Left foot pain: Code(s): M79.672 - Pain in left foot Category: Medical (6) Insertional Achilles tendinopathy: Code(s): M76.60 - Achilles tendinitis, unspecified leg Category: Medical (7) Displaced fracture of fifth metatarsal bone, left foot, initial encounter for closed fracture: Code(s): S92.352A - Displaced fracture of fifth metatarsal bone, left foot, initial encounter for closed fracture Category: Medical (8) Hammertoes of both feet: Code(s): M20.41 - Other hammer toe(s) (acquired), right foot; M20.42 - Other hammer toe(s) (acquired), left foot Category: Medical (9) Pre-diabetes: Code(s): R73.03 - Prediabetes Category: Medical (10) Left leg pain: Code(s): M79.605 - Pain in left leg Category: Medical Plan Patient was informed and verbally consented to the use of an ambient scribe for clinic note documentation during this visit. I reviewed the patient's recent X-rays and explained that the fracture is showing signs of healing, with the fracture line fading and the bone edges approximating. I also informed the patient that the Achilles tendon appears intact with no signs of rupture or tear. We discussed the bone spur visible on imaging, and I noted that since the pain is improving, surgical intervention is not currently necessary. I outlined the plan to continue using the boot for this week and then transition to a supportive sneaker next week, with the goal of weight-bearing as tolerated. I have placed an order for a new X-ray and will re- evaluate the patient in three weeks. - The patient will continue to wear the boot for the remainder of this week. - Starting next week, the patient will transition to wearing supportive sneakers and may discontinue the boot. - The boot may be used for comfort if significant pain occurs. - Advised to avoid walking barefoot and to use house slippers indoors. - Continue RICE protocol. - May take Tylenol or Ibuprofen prn for pain. - Ordered left foot xrays to be obtained prior to next appt. - Continue stretching exercises for the Achilles tendon to prevent further irritation and swelling. Provided patient with instructional form. RTC in 3 weeks. Orders: Orders XR foot LT min 3V 08/22/25 M20.10 - Hallux valgus (acquired), unspecified foot, M20.41 - Other hammer toe(s) (acquired), right foot, M20.42 - Other hammer toe(s) (acquired), left foot, M25.572 - Pain in left ankle and joints of left foot, M76.60 - Achilles tendinitis, unspecified leg, M77.32 - Calcaneal spur, left foot, M77.52 - Other enthesopathy of left foot and ankle, M79.672 - Pain in left foot, S92.352A - Displaced fracture of fifth metatarsal bone, left foot, initial encounter for closed fracture Coding Level of Care Code Est Pt Level 4 (25302) Diagnoses Pain in left ankle and joints of left foot M25.572 Calcaneal spur of left foot M77.32 Other enthesopathy of left foot and ankle M77.52 Hallux valgus M20.10 Left foot pain M79.672 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 Displaced fracture of fifth metatarsal bone, left foot, initial encounter for closed fracture S92.352A Hammertoes of both feet M20.41; M20.42 Pre-diabetes R73.03 Left leg pain M79.605 Time Spent (min) 31
--- OUTSIDE RECORDS SUMMARY | 2025-08-22 09:47 | XMS_ITS | Clinical Summary ---
Author Organization [facility] Address [address] [place] [address] Care Team Providers Care Industrial Welder Name Role Phone Roz Ramirez MD Primary [...] age to complete this topic Care Teams Industrial Welder Relationship Specialty Start Date End Date Roz Ramirez MD PCP - General Internal Medicine 12/10/20
--- OUTSIDE RECORDS SUMMARY | 2025-08-22 09:47 | XMS_ITS | Clinical Summary ---
Author Organization [employer] Address [address] [facility] 7[address] [place] [address] Care Team Providers Care Range Ecologist Name Role Phone Unavailable Primary Care Provider [...] Relevant to Health Maintenance Insurance [address] [place] [address] [place]
--- OUTSIDE RECORDS SUMMARY | 2025-08-22 09:47 | XMS_ITS | Clinical Summary ---
Author Organization [facility] Address [address] [place] [address] Care Team Providers Care Mulcher Operator Name Role Phone Monik Wright Primary Care Provider [phone] Allergies No known active allergies Medications amLODIPine [...] patient's age to complete this topic Insurance [facility] Care Teams Mulcher Operator Relationship Specialty Start Date End Date Monik Wright [address] [place] [address] PCP - General 04/17/24
== END 2025-08-22 09:35 | disposition home or self-care (01) ==
LOC: HO.HPODS 09:05
PROVIDERS: PCP Nurse Practitioner Family; Visit Provider Student in an Organized Health Care Education/Training Program
DX: M25.572 Pain in left ankle and joints of left foot (principal); M77.32 Calcaneal spur, left foot; M77.52 Other enthesopathy of left foot and ankle; M20.10 Hallux valgus (acquired), unspecified foot; M79.672 Pain in left foot; M76.60 Achilles tendinitis, unspecified leg; S92.352A Displaced fracture of fifth metatarsal bone, left foot, initial encounter for closed fracture; M20.41 Other hammer toe(s) (acquired), right foot; M20.42 Other hammer toe(s) (acquired), left foot; R73.03 Prediabetes; M79.605 Pain in left leg
CPT/HCPCS: 99214

== ENCOUNTER → 2025-08-22 09:04 | Outpatient (BNVA) | payer MEDICARE, SELFPAY | PROVIDERS: PCP Nurse Practitioner Family; Visit Provider Student in an Organized Health Care Education/Training Program | DX: S92.352A Displaced fracture of fifth metatarsal bone, left foot, initial encounter for closed fracture (principal); R73.03 Prediabetes; M20.41 Other hammer toe(s) (acquired), right foot; M20.42 Other hammer toe(s) (acquired), left foot; M76.60 Achilles tendinitis, unspecified leg; M20.10 Hallux valgus (acquired), unspecified foot; M77.52 Other enthesopathy of left foot and ankle; M77.32 Calcaneal spur, left foot; X58.XXXA Exposure to other specified factors, initial encounter; Y93.9 Activity, unspecified; Y92.9 Unspecified place or not applicable; Y99.9 Unspecified external cause status | CPT/HCPCS: 99212 ==

== ENCOUNTER 2025-09-10 12:53 | Outpatient (REF) | payer MEDICARE, SELFPAY ==
--- OUTSIDE RECORDS SUMMARY | 2025-08-30 10:00 | XMS_ITS | Encounter Summary ---
Author Organization [facility] Address [address] [place] [address] Care Team Providers Care New Car Get Ready Mechanic Name Role Phone WrightMonik bonilla Primary Care Provider [phone] Reason for Visit * Consultation (Routine) - Authorized Specialty Diagnoses / Procedures Referred By Ronna alcantar Referred To Contact Physician Director Of [facility] / Dermatology Diagnoses cyst Procedures Monik Workman [address] [place] [address] Phone: tel: fax: Annabella Galindo PA [address] [place] [phone] Phone: tel: fax: Referral ID Status Reason Start Date Expiration Date V isits Requested Visits Authorized [id number] Authorized 10/05/2024 04/06/2026 6 6 Encounter Details Date Type Department Care Team (Late st Contact Info) Description 08/30/2025 10:00 AM EST Office Visit [facility] D[facility]atology Clinic [address]th [address] [place] [address], [place] [address] Photo Manager: Annabella Dhaliwal PA [address] [place] [id number] Seborrheic keratoses (Primary Dx); Inflamed seborrheic keratosis; Lentigines Social History Tobacco Use Types Packs/Day Years Used Date Smoking Tobacco: Never Comments:: Comments Unknown Sex and Gender Information Value Date Recorded Sex Assigned at Female 04/25/2024 1:55 PM EDT Legal Sex Female 7:13 PM EDT Gender Identity Not on file Sexual Orientation Not on file documented as of this encounter Patient Instructions * Patient Instructions* CARIE Mendosa - 08/30/2025 10:27 AM EST Images from the original note were not included. PROTECT YOURSELF FROM THE SUN Avoid sun exposure in the middle of the day (10 AM - 3 PM) Wear a wide-brimmed hat and sunglasses when outdoors Wear sun protective clothing: tightly woven loose-fitting clothing, such as a long-sleeved shirt and pants Sun protective clothing is available from the following vendors: www.TOPSEC, www.coolibar.Netvibes, www.sunsolutionsclothing.Netvibes, www.sunprecautions.Netvibes www.Community Bound[employer].asunwear.Netvibes Apply a broad-spectrum sunscreen with a sun [...] the skin For more information, see the [place] [employer] web site at www.aad.org [...] Sunscreen Lotion - SPF 50 60 50 [facility] Sport Sunscreen Lotion 50 Products for people [...] Protection Sunscreen Lotion, SPF 50, $7.98 at [facility] - Equate?? Sport Sunscreen Lotion, SPF 50, $4.48 at [facility]?? Ultra Sheer Sunscreen Lotion, SPF 55, $9.29 at [facility] - Neutrogena?? Ultra Sheer Dry-Touch Sunscreen, SPF 45 or 70, $11.49 at [facility] Neutrogena?? [place] Boost Gel Lotion, SPF 30 or 50, $9.99 at [facility] - Sun Bum?? Sunscreen Lotion, SPF 30 or 50, $14.99 at [facility] Sun Bu ?? Sunscreen Roll-On Lotion, SPF 50, $14.99 at [facility]?? Sunscreen Stick, SPF 50, $11.29 at [facility] - Up & Up Kids Sunscreen Stick, SPF 55, $6.99 at [facility] - Banana Boat?? Sport Ultra Sunscreen Lotion, SPF 30, $12.99 at [facility] Physical blockers: - Neutrogena Pure & Free Baby Sunscreen, SPF 50, $10.99 at [facility] - Blue Lizard?? Faroese Sunscreen, SPF 30, $14.99 at [facility]?? Sensitive Skin, SPF 60, $13.99 at [facility] Vanicream??? Sunscreen Sport Water Resistant, SPF 35, $15.95 on Amazon - Baby Bu?? Mineral Sunscreen Lotion, SPF 50, $13.99 at [facility] Sun Bu?? Mineral Sunscreen Lotion, SPF 50, $16.49 at [facility]?? Mineral Sunscreen, SPF 30, $15.99 at [facility] Sunscreen for the face (oil-free/non-comedogenic/won't cause acne): - Neutrogena?? Age Shield?? Face Sunscreen, SPF 70, $14.99 - Neutrogena?? Clear Face Liquid Lotion Sunblock, SPF 30. $14.49 at [facility]?? AM Facial Moisturizing Lotion, SPF 30, $12.99 at [facility] - EltaMD?? UV Clear, SPF 46, $12.49 at [facility] - [place]ay?? Anthelios Clear Skin, SPF 60 $19.99 at [facility] - Vanicream?? Facial Moisturizer Physical Sunscreen, SPF 30, $14.99 on [facility] - Cetaphil?? Sheer Mineral Face, SPF 50, $8.29 at [facility] - Aveeno?? Protect + Hydrate Face Sunscreen, SPF 60, $8.99 at [facility] - Supergoop!?? Unseen Sunscreen, SPF 40, $36.00 on [facility] - Sun Bum?? Face Stick, SPF 30, $9.99 at [facility] - Sun Bum?? Face Lotion, SPF 50, $13.99 at [facility] Sunscreen sprays: - Sun Bum?? Scalp and Hair Mist, SPF 30 $14.99 at [facility] - Sun Bum?? Sunscreen Flushing, SPF 30, $15.99 (Mineral $17.99) at [facility] - Coppertone?? Sunscreen Continuous Flushing, SPF 50, $12.99 at [facility] - Up & Up Sport Flushing, SPF 30, $4.59 at [facility] - Banana Boat?? Simply Protect Sensitive Mineral Enriched Sunscreen Lotion Flushing, SPF 50, $12.99 at[facility] Tinted sunscreens: - CeraVe?? Tinted Mineral Sunscreen, SPF 30, $13.99 at [facility] - Ulta?? Tinted Mineral Face Lotion, SPF 30, $12.99 at [facility] - Live Tinted?? Alfonso 3-in-1 Mineral Primer, SPF 30, $32.00 at Ul - EltaMD?? UV Physical Broad Spectrum Tinted Sunscreen, SPF 46, $39.00 on Amazon - [place]?? Anthelios 50 Tinted Mineral Ultra Fluid, SPF 50, $34.99 at [facility] - Sun Bum?? Mineral Sunscreen Tinted Face, SPF 30, $19.79 at [facility] - Hector On Block?? Mineral Sunscreen Powder, SPF 30, $34.00 on [facility] - Supergoop!?? (Re)Setting Mineral Powder, SPF 35, $30 at Hanny or on Amazon - Tarte??? BB Tinted Primer, SPF 30, $39 at Hanny - IT Cosmetics?? CC+ Foundation, SPF 50, $42 at Ulta Lip balms with sunscreen: - Aquaphor?? Lip Repair Stick, SPF 30 , $7.69 for 2 at [facility] - Up & Up (Target) Sport Sunscreen Lip Poneto, SPF 50, $3.99 for 2 at [facility] - Banana Boat?? Ultra Sport Lip Poneto, SPF 50, $4.99 for 2 at Target - eos?? Natural Lip Poneto Stick, SPF 30, $2.99 for 1 at [facility] - Sun Bum?? Sunscreen Lip Poneto, SPF 30 (chemical or mineral), $9.99 for 3 at [facility] - Coola?? Organic Liplux Classic Sunscreen Lip Poneto, SPF 30, $18 at Ulta or ZipZapa.Netvibes UPF (Ultraviolet Protection Factor) Clothing: - Coolibar?? (www.The Beer X-Change) - L.L. Ball?? - Athleta?? [facility] Department of Dermatology Updated 04/21/22 by Tex García M Ol[place]. documented in this encounter Progress Notes * CARIE Mendosa - 08/30/2025 10:00 AM EST DERMATOLOGY ESTABLISHED PATIENT VISIT CHIEF COMPLAINT: Harper spots on face and itchy spots on back HPI: Kyara Moore is a 69 y.o. female who is seen in follow up at [facility] Department of Dermatology for evaluation of harper spots on her face and itchy spot on her back. Regarding the harper spotson her face she was prescribed tretinoin. She uses this as prescribed. She feels like she is getting more tanned spots on her face. She tries to wear sunscreen daily. She also has harper rough raised spots on her back. These bother her and sometimes itch. Personal history of skin cancer: no Family history of skin cancer: Yes History of blistering sunburns: No History of atypical nevi: No History of tanning bed use: remote Hx, couple times Sun protection measures: yes PAST DERMATOLOGIC HISTORY: No specialty comments available. MEDICATIONS, ALLERGIES, AND PAST MEDICAL HISTORY: All were reviewed in patient's chart. No Known Allergies REVIEW OF SYSTEMS: Patient is feeling well with no symptoms other than those discussed above. PHYSICAL EXAM: The patient is a well-appearing female Focused skin exam of the face and back was performed and reveals - Pertinent positives noted on exam as follows: Physical Exam - scattered harper macules in a sun-exposed distribution, largest on the right and left infraorbital cheek and chin - Harper waxy, verrucous stuck on papules and plaques with pseudohorn cysts on the back (patient reports that these are itchy) ASSESSMENT & PLAN: 1. Seborrheic keratoses (Primary) [...] Procedure Details: Liquid Nitrogen was applied to 6 ISKs - left back - for 2 freeze/thaw cycles. The patient toleratedprocedure well. 3. Lentigines - I encouraged her to make sure she is applying sunscreen liberally every day. - I will prescribe a tretinoin combination through [facility]. - I also suggested she could try a glycolic acid peel once per week - I also offered for her to schedule a visit with her cosmetic providers for a consults. She is aware that there is an bhc-fg-gyzyiz cost for other treatment modalities. She will think about this at that time Addendum: The combination topical medication of tretinoin and niacinamide (with Vitamins C/E and tumeric) was sent to patient via [employer]. - Advised the patient to use sunscreen daily (spf >30) and use sun protective clothing if possible. - Reviewed the ABCDE's of skin lesions. - A Sun protection handout given. We discussed sun protection, use of sunscreens and the ABCDs of melanoma. Advised to call the office or send a [employer] message with new spots of concern or questions. FOLLOW UP: Return if symptoms worsen or fail to improve. Portions of this note were created with voice recognition software. As such, please excuse any wordselection errors, misspellings or grammatical errors. documented in this encounter Plan of Treatment Not on file documented as of this encounter Visit Diagnoses Diagnosis Seborrheic keratoses- Primary Inflamed seborrheic keratosis Lentigines documented in this encounter Care Teams New Car Get Ready Mechanic Relationship Specialty Start Date End Date Monik Wright [address] [place] [address] PCP - General 04/17/24 documented as of this encounter
--- NOTE | ~2025-09-10 | XR_ITS ---
EXAMINATION: XR FOOT, LEFT CLINICAL INFORMATION: M20.10 - Hallux valgus (acquired), unspecified foot COMPARISON: 08/20/2025. 08/01/2025. TECHNIQUE: AP, lateral, and oblique views of the left foot, weightbearing. FINDINGS: No fracture, dislocation, or suspicious bone lesion. 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 There is minimal blunting formation involving the medial eminence of the first metatarsal head. Alignment is otherwise normal. Joint spaces otherwise preserved. Redemonstration of probable remote avulsion fracture through the base of the fifth metatarsal, which appears essentially healed. There is an os trigonum. There are moderate-sized plantar and dorsal calcaneal spurs. There is an os trigonum. No soft tissue abnormalities. XR/XR foot LT min 3V IMPRESSION: 1. Very mild hallux valgus with mild degenerative changes of the first MTP joint. There is very mild bunion formation. 2. Suspect sequela of old trauma at the base of fifth metatarsal, unchanged. 3. Plantar and dorsal calcaneal spurs. Electronically signed by: Mack Holman MD 09/10/2025 02:29 PM EST
--- OUTSIDE RECORDS SUMMARY | 2025-09-10 18:42 | XMS_ITS | Clinical Summary ---
Author Organization [facility] Prior to 02/24/25 Address [address] [place] [address] Care Team Providers Care Gl Accountant Name Role Phone Roz Ramirez MD Primary [...] age to complete this topic Care Teams Gl Accountant Relationship Specialty Start Date End Date Roz Ramirez MD PCP - General Internal Medicine 12/10/20
--- OUTSIDE RECORDS SUMMARY | 2025-09-10 18:42 | XMS_ITS | Clinical Summary ---
Author Organization [employer] Address [address] [facility] [address]t [place] [address] Care Team Providers Care Tile Edger Name Role Phone Unavailable Primary Care Provider [...] Relevant to Health Maintenance Insurance [address] [place] [id number] [place]
--- OUTSIDE RECORDS SUMMARY | 2025-09-10 18:42 | XMS_ITS | Clinical Summary ---
Author Organization [facility] Address [address] [place] [address] Care Team Providers Care Quahogger Name Role Phone Monik Wright Primary Care Provider [phone] Allergies No known active allergies Medications amLODIPine [...] at bedtime 45 g 11 5 Active lidocaine 4 % adhesive patch,medicated SMARTSI Patch(s) Topical Daily PRN 5 Active Active Problems Problem Noted Date Diagnosed Date Fecal soiling 06/22/2016 Encounters Date Type Department Care Team Description 08/30/2025 10:00 AM EST Office Visit [facility] Dermatology Clinic 4th Floor [address] [facility], [place] [address] Terminal Operations Supervisor: Annabella Dhaliwal PA Seborrheic keratoses (Primary Dx); Inflamed seborrheic keratosis; Lentigines from Last 3 Months Social History Tobacco [...] 02/16/2025 Influenza Vaccine (#1) 2025 COVID-19 Vaccine ( - 2024-2 6 season) 2025 Fall Risk Screening 08/30/2026 08/30/2025 DTaP,Tdap,and Td Vaccines (2 - Td or Tdap) 06/07/2027 06/07/2017 RSV Vaccine (60+ years old a nd patients) (1 - 1-dose 75+ series) 2029 Hepatitis C Screening Completed 06/07/2017 Hepatitis B Vaccines Aged Out No long er eligible based on patient's age to complete this topic Insurance [facility] Care Teams Quahogger Relationship Specialty Start Date End Date Monik Wright [address] [place] [address] PCP - General 04/17/24
== END 2025-09-10 12:54 | disposition home or self-care (01) ==
LOC: HO.XRAY 12:53
PROVIDERS: PCP Nurse Practitioner Family; Visit Provider Student in an Organized Health Care Education/Training Program
DX: S92.352A Displaced fracture of fifth metatarsal bone, left foot, initial encounter for closed fracture (principal); M20.41 Other hammer toe(s) (acquired), right foot; M20.42 Other hammer toe(s) (acquired), left foot; M25.572 Pain in left ankle and joints of left foot; M77.32 Calcaneal spur, left foot; M76.60 Achilles tendinitis, unspecified leg; M77.52 Other enthesopathy of left foot and ankle; M20.12 Hallux valgus (acquired), left foot
CPT/HCPCS: 73630

== ENCOUNTER → 2025-09-10 12:56 | Outpatient (BNV) | payer MEDICARE, SELFPAY | PROVIDERS: PCP Nurse Practitioner Family; Visit Provider Radiology Diagnostic Radiology | DX: M20.12 Hallux valgus (acquired), left foot (principal); M19.072 Primary osteoarthritis, left ankle and foot; M21.612 Bunion of left foot; M77.32 Calcaneal spur, left foot | CPT/HCPCS: 73630 ==

== ENCOUNTER 2025-09-21 08:10 | Outpatient (AMB) | payer MEDICARE, SELFPAY ==
--- OUTSIDE RECORDS SUMMARY | 2025-09-21 08:13 | XMS_ITS | Clinical Summary ---
Author Organization [employer] Address [address] [facility] [address] [place] [address] Care Team Providers Care Administrator Name Role Phone Unavailable Primary Care Provider [...] Relevant to Health Maintenance Insurance [address] [place] [address] [place]
--- OUTSIDE RECORDS SUMMARY | 2025-09-21 08:13 | XMS_ITS | Clinical Summary ---
Author Organization [facility] Address [address] [place] [address] Care Team Providers Care Sustainable Agriculture Faculty Name Role Phone Monik Wright Primary Care Provider [phone] Allergies No known active allergies Medications amLODIPine [...] Description 08/30/2025 10:00 AM EST Office Visit [facility] Dermatology Clinic 4th Floor [address] [facility], [place] [address] Continuing Education Dean: Annabella Dhaliwal PA Seborrheic keratoses (Primary Dx); [...] patient's age to complete this topic Insurance [facility] Care Teams Sustainable Agriculture Faculty Relationship Specialty Start Date End Date Monik Wright [address] [place] [address] PCP - General 04/17/24
--- OUTSIDE RECORDS SUMMARY | 2025-09-21 08:13 | XMS_ITS | Clinical Summary ---
Author Organization [facility] Prior to 02/24/25 Address [address] [place] [address] Care Team Providers Care Tools Developer Name Role Phone Roz Ramirez MD Primary [...] age to complete this topic Care Teams Tools Developer Relationship Specialty Start Date End Date oRz Ramirez MD PCP - General Internal Medicine 12/10/20
--- NOTE | 2025-09-21 08:15 | AM.OFFVISMDC ---
Intake Vital Signs 09/21/25 08:26 BMI Reason not done Patient refused/unable BP 134/84 Blood Pressure Location Lt brachial Position Sitting Respiration 14 Pulse 81 Pulse Source Pulse Oximeter Temp 97.6 F Temp Source Oral Pulse Oximetry (%) 96 Oxygen Delivery Method Room Air Intake Visit Reasons: AUG SAWV 30 MIN Intake Note: Medical wellness visit. Bunion in left side of foot. Wants chest xray, whistling in the lungs. Workers Compensation Specialist Required: No Accompanied by: Grand Child Allergies flu vaccine Allergy (Severe, Uncoded 09/21/25 08:39) Hives Medication List - Last Reconciled 09/21/25 by Monik Delgado, HELICOPTER REPAIRER- amlodipine 2.5 mg PO DAILY cyclosporine 0.05% (Restasis) 1 drp ophthalmic (eye) Q12H 30 days doxylamine succinate (Unisom (doxylamine)) 25 mg PO BEDTIME PRN lidocaine 5% (Lidocan V) 2 patches topical DAILY melatonin 6 mg (2 x 3 mg) PO BEDTIME PRN omeprazole 20 mg PO DAILY PRN propranolol ER 60 mg PO BEDTIME HPI HPI Comments History of Present Illness Details Here today for AWV & Complex Dz Mgmt Visit: The Medicare Annual Wellness Visit (AWV) is a yearly appointment with a health professional to identify health risks and help reduce them and to create or update a personalized prevention plan. During a Medicare AWV, health professionals should also review any current opioid prescriptions, detect any cognitive impairment, and establish or update medical and family history. 69 year-old female with HLD, anxiety, tremors, hypertension, chronic daily headaches, tinnitus, eczema, GERD , macular degeneration, sigmoid diverticulosis, prediabetes, anemia, Mild hepatic steatosis, Cholelithiasis, L renal cyst SurgHx: y FHx: y SocHx: y Health Maintenance: See scanned preventative medicine assessment with personalized health plan and screening schedule. Mammogram 11/2024 DEXA 08/09/2020 normal (repeat 2024) Colonoscopy: 10/03/2019 @ [facility] repeat 10 years Upper Endo 09/2019: chronic gastritis PAP NA Vaccines: Tdap 2016, Declined all other vaccines AAA screen: NA EKG: done today NSR borderline NE interval 202 ms, borderline first degree AV block, no Sx. Specialists/[place] of Care: Derm first appt December 2024 [facility] 3 months ago ENT Visual Acuity: Done today, see results below; has macular, routine eye exams Hearing Screening: tinnitus active with ENT ACP: info provided today Dietary/Nutrition/Exercise Edu provided: Y During the course of the visit the patient was educated and counseled about appropriate screening and preventative services. Patient instructions were provided to the patient in written or electronic format. I have reviewed and verified the above information. Heel pain/Foot, L: - The patient reports a recurrence of very strong pain in her L heel, which she describes as feeling like a ball or a bone bruise. - The pain is severe enough that she is limping, cannot walk, and cannot wear regular shoes like sneakers. - She was evaluated by a plodding operator about a week ago, and an X-ray of the area showed her Achilles tendon was okay. - The plodding operator has a follow-up scheduled for October 22 and plans to refer her to physical therapy at that time. Insomnia: - The patient reports a recurrence of sleep problems, stating that she has been nervous lately. - She has tried relaxation teas and melatonin, but feels she needs something stronger. - She reports that lack of sleep causes severe headaches, head pressure, and a feeling that she might faint. Hypertension: - The patient takes amlodipine and propranolol for her blood pressure. - She reports that her blood pressure sometimes rises to 160. Prediabetes: - A fingerstick A1c today was 6.3%, which is an improvement from 6.4% last year but still in the prediabetic range. - The patient attributes this to craving and eating a lot of sweets over the past couple of weeks. Wheezing: - The patient reports concerns about her lungs, recalling a severe illness a few years ago. - She occasionally feels an internal whistling when she breathes and notes that her cough can also sound like a whistle. Social History - Functional Status: The patient reports she cannot walk or do much activity due to her foot pain. - Nutrition: Reports craving and eating a lot of sweets for the past couple of weeks. - Weight Management: Reports a 5-pound weight gain, which she attributes to her inability to be active. Health Maintenance - Mammogram: The patient is up to date, with the last one completed in November. - Bone Density Scan: The patient is due for a bone density scan; the last one was normal in 2020. - Advanced Care Planning: The patient was given Healthcare Proxy and Advanced Care Plan forms to complete. Review of Systems - Constitutional: Reports a 5-pound weight gain. - HEENT: Reports persistent tinnitus and a sensation of fluid in both ears. - Respiratory: Reports intermittent wheezing. - Musculoskeletal: Reports severe pain in the right heel, causing a limp and difficulty walking. - Neurological: Reports headaches, head pressure, and feeling faint when sleep-deprived. - Psychiatric: Reports feeling nervous and scared, particularly related to her insomnia. Physical Exam General: Well developed, well nourished, in no acute distress. Appears stated age. Head: Normocephalic, atraumatic. Eyes: Pupils are equal, round and reactive to light and accommodation. Conjunctivae are clear. Scleras nonicteric bilat. Vision grossly normal. Ears: TMs mild clouding bilat, L>R, EACS WNL. Nose: Patent, without discharge. Nasal polyps Neck: No carotid bruit bilat. Supple, no adenopathy or thyromegaly. Breast: Edu on SBE. Up to date on mammogram as of November. Lungs: Clear to auscultation bilaterally. No rales, rhonchi or wheeze noted. Good air flow in all coronado. Heart: Regular rate and rhythm. No murmurs, click, rubs or gallops are noted. EKG shows a borderline NE interval at 202 milliseconds and borderline first degree AV block. Abdomen: Bowel sounds present in all quadrants. The abdomen is soft, nontender, with no masses or organomegaly noted. No hernias are noted. : Deferred. Reviewed recommendations for routine TUBE BENDER HAND. Pulses: Peripheral pulses are equal and palpable bilaterally. Extremities: No clubbing, cyanosis nor edema is noted. L foot pain/heel pain w/ palp and wt bearing Neurologic: Gait and station normal. Cranial Nerves 2-12 intact. Motor strength grossly symmetrical and intact. No sensory loss. Balance normal. Skin: No rashes, ulcers, or lesions noted. Turgor is good. Skin color is good. Hair and nails are without abnormalities. Psych: Normal eye contact, affect and mood appropriate, and normal interactions. Patient is alert and appropriate to context. Results - EKG: Showed a borderline NE interval at 202 milliseconds with borderline first-degree AV block, but was otherwise normal. - A1c (fingerstick): 6.3%, which is in the prediabetic range. Wants to wait to repeat labs for a few weeks. Medical Decision Making The patient is a 69-year-old female who presented for an annual wellness exam with several active complaints including significant right heel pain, insomnia, and respiratory concerns. The patient's L heel/foot pain is causing functional limitations, and although she is under the care of a plodding operator, her next appointment is not for several weeks. An immediate referral for physical therapy was placed to help manage her symptoms and improve mobility in the interim. Her recurrent insomnia is not responding to melatonin, and it is causing significant distress, including headaches and anxiety. Therefore, doxylamine succinate was prescribed as an as-needed alternative or adjunct therapy for sleep. The patient's subjective report of wheezing prompted an order for a chest X-ray to rule out any underlying pulmonary pathology, given her history. Health maintenance was addressed by ordering a due bone density scan. Her prediabetes shows slight improvement with an A1c of 6.3, and she was counseled on dietary modifications. Her hypertension is managed on her current medications, which were refilled. The borderline first-degree AV block on EKG is noted but does not require immediate intervention. Plan 1. Annual Wellness Examination - Ordered a bone density scan as patient is due for screening. - Ordered a chest X-ray to evaluate patient's report of wheezing. - Provided patient with Healthcare Proxy and Advanced Care Plan forms for completion. - Deferred lab work for a couple of weeks at the patient's request. 2. Heel Pain, Left - The patient is currently followed by a plodding operator for this issue, whom she saw a week ago. - To expedite care, a referral for physical therapy was ordered today rather than waiting for her follow-up with podiatry. - The patient was advised to take the printed order to her preferred physical therapy location. 3. Insomnia - The patient reports her current regimen, including melatonin, is not effective. - Prescribed doxylamine succinate to be used as needed for sleep. - Educated patient that she can take it with or without melatonin. 4. Hypertension - Patient's blood pressure in office was 134/84 mmHg. - Refilled prescriptions for amlodipine and propranolol. 5. Prediabetes - Fingerstick A1c was 6.3%, improved from last year but still in the prediabetic range. - Counseled patient to reduce sweet intake. - Patient will follow up for blood work in a couple of weeks. 6. First-Degree Atrioventricular Block - Today's EKG showed a borderline first-degree AV block. - No acute management changes are necessary at this time, as she has no sx. Patient Instructions - A [facility] for [facility] - You can take the new sleep medicine as needed, either by itself or with your melatonin. - An order has been placed for physical therapy for your foot pain. Please ask the front services agent to print the order, and you can take it to the facility you prefer. - An order for a chest X-ray has been placed. You can get this done at your convenience. - You are due for a bone density scan. I have placed the order for this and recommend getting it done around the same time as your next mammogram in November. - All of your regular prescriptions, including for blood pressure and your eye drops, have been refilled. - Please try to reduce your intake of sweets to help with your blood sugar levels. - You will come back in a couple of weeks to get your blood work done. - Please fill out the Healthcare Proxy and Advanced Care Plan forms and bring them back with you to your next visit. - RTO 6 mo routine chronic dz mgmt, sooner PRN Consent Patient was informed and verbally consented to the use of an ambient scribe for clinic note documentation during this visit. An additional 30 minutes was spent addressing the problem(s) noted at todays visit. This includes time spent before the visit reviewing the chart, time spent during the visit, and time spent after the visit on documentation reviewing laboratory results, diagnostic imaging, medications, performing a medically necessary evaluation, counseling on diagnoses, care coordination, ordering appropriate tests, ordering appropriate medications, review of tests performed by other providers, reporting test results with the patient, communication with other healthcare providers. [facility] Medical History (Updated 09/21/25 @ 09:03 by Monik Delgado, HELICOPTER REPAIRER-) Arthritis of hand Depression Difficulty sleeping Displaced fracture of fifth metatarsal bone, left foot, initial encounter for closed fracture GERD (gastroesophageal reflux disease) Hallux valgus Hammertoes of both feet HLD (hyperlipidemia) Hypertension Insertional Achilles tendinopathy Left foot pain Left hip pain Left leg pain Macular degeneration Other enthesopathy of left foot and ankle Right sciatic nerve pain Right shoulder pain Right-sided back pain Surgical History (Updated 09/21/25 @ 09:03 by [facility] History of back surgery History of bladder surgery Social History Housing: House Alcohol intake: never Patient Tobacco Use Status: Never used Tobacco e-Cigarette/Vaping Use: Never Used Second Hand Smoke Exposure: No service: No Current occupational status: retired Current occupational exposures/hazards: No Cognitive needs: No (cane/walker) Hearing needs: No Vision needs: No (glasses) Questionnaire Medicare Wellness Checkup What [age] What gender do you identify with?: female During the past 4 weeks, how much have you been bothered by emotional problems such as feeling anxious, depressed, irritable, sad or downhearted, and blue?: not at all During the past 4 weeks, has your physical & emotional health limited your social activities with family, friends, neighbors, or groups?: not at all During the past 4 weeks, how much bodily pain have you generally had?: severe pain During the past 4 weeks, was someone available to help you if you needed & wanted help?: yes, as much as I wanted During the past 4 weeks, what was the hardest physical activity you could do for at least 2 minutes?: very light Can you get to places out of walking distance without help? (For eg., can you travel alone on buses, taxis or drive your car?): No Can you go shopping for groceries or clothes without someone's help?: No (foot pain) Can you prepare your own meals?: No (foot pain) Can you do your housework without help?: No (no bending) Because of any health problems, do you need the help of another person with your personal care needs such as eating, bathing, dressing or getting around the house?: Yes Can you handle your own money without help?: Yes During the past 4 weeks, how would you rate your health in general?: poor During the past 4 weeks how have things been going for you?: very bad; could hardly be worse Are you having difficulties driving your car?: sometimes (can drive short distance.) Do you always fasten your seat belt when you are in a car?: yes, usually During past 4 weeks, have you been bothered by the following: never: Sexual problems?, Trouble eating well?, Teeth or denture problems? and Problems using the telephone?, sometimes: Falling or dizzy when standing up and always: Tiredness or fatigue? Have you fallen 2 or more times in the past year?: No Are you afraid of falling?: Yes Are you a smoker?: no During the past 4 weeks, how many drinks of wine, beer, or other alcoholic beverages did you have?: no alcohol at all Do you exercise for about 20 minutes 3 or more times a week?: no, I usually do not exercise this much Have you been given information to help with the following?: no: Hazards in your house that might hurt you? and no: Keeping track of your medications? How often do you have trouble taking medicines the way you have been told to take them?: I always take medicine as prescribed (with familys help) How confident are you that you can control & manage most of your health problems?: not very confident What is your race?: White Activity of Daily Living Bathing - sponge bath, tub bath or shower: receives no assistance (gets in/out by self, if usual bathing means Dressing - getting clothes from closets & drawers, including inner/outer garments & fasteners.: gets clothes & gets completely dressed without help Toileting - going to the 'toilet room' for urine/bowel elimination & cleaning self/arranging clothes: goes to toilet room, cleans self, arranges clothes without help Transfer: moves in & out of bed and chair without help (may use support object) Continence: controls urination/bowel movements completely by self Feeding: feeds self without help Total Score: 0 Information obtained from: patient Using telephone: independent Traveling: independent Shopping: independent Preparing meals: independent Housework: independent Taking medicine: independent Managing money: independent PHQ-9 Over the last 2 weeks, how often have you been bothered by any of the following problems? 1. Little interest or pleasure in doing things: not at all 2. Feeling down, depressed, or hopeless: not at all 3. Trouble falling or staying asleep, or sleeping too much: not at all 4. Feeling tired or having little energy: not at all 5. Poor appetite or overeating: not at all 6. Feeling bad about yourself - or that you are a failure or have let yourself or your family down: not at all 7. Trouble concentrating on things, such as reading the newspaper or watching television: not at all 8. Moving or speaking so slowly that other people could have noticed. Or the opposite - being so fidgety or restless that you have been moving around a lot more than usual: not at all 9. Thoughts that you would be better off or of hurting yourself in some way: not at all Total score: 0 Depression Screening Interpretation: Negative Depression Screening Done: Yes 88832 - PHQ-9 Billing: Yes Source: Developed by Drs. Saad Ballard, Carolina Portillo, Aly Zee and colleagues, with an educational susan from [employer] ([employer]). Physical Exam Vital Signs: Last Vital Signs Temp 97.6 F 09/21/25 08:26 Pulse 81 09/21/25 08:26 Resp 14 09/21/25 08:26 BP 134/84 09/21/25 08:26 Pulse Ox 96 09/21/25 08:26 Oxygen Delivery Method Room Air 09/21/25 08:26 Office Procedures Vision Screening Right Eye: 20/30 Left Eye: 20/40 Bilateral: 20/30 [id number] - Vision Screening EKG [id number], Complete Results AMB Hemoglobin A1c AMB Hemoglobin A1c 6.3 % Last Edit by Eli Chung CMA on 09/21/25 08:42 Results Reviewed Results Reviewed: Laboratory Last Values Hgb A1c (Clinic) 6.3 % (4.0-6.0) H 09/21/25 08:38 Assessment & Plan Assessment & Plan (1) Encounter for subsequent annual wellness visit (AWV) in Medicare patient: Onset Date: ~09/21/25 Code(s): Z00.00 - Encounter for general adult medical examination without abnormal findings (2) Screening for osteoporosis: Onset Date: ~2019 Comment: repeat 2024 ordered Code(s): Z13.820 - Encounter for screening for osteoporosis (3) Menopause: Code(s): Z78.0 - Asymptomatic menopausal state (4) Displaced fracture of fifth metatarsal bone, left foot, initial encounter for closed fracture: Code(s): S92.352A - Displaced fracture of fifth metatarsal bone, left foot, initial encounter for closed fracture (5) Insertional Achilles tendinopathy: Comment: LEFT Code(s): M76.60 - Achilles tendinitis, unspecified leg (6) Other enthesopathy of left foot and ankle: Code(s): M77.52 - Other enthesopathy of left foot and ankle (7) Wheezing: Code(s): R06.2 - Wheezing (8) Hypertension: Code(s): I10 - Essential (primary) hypertension Qualifiers: Hypertension type: primary hypertension Qualified Code(s): I10 - Essential (primary) hypertension (9) HLD (hyperlipidemia): Comment: DECLINED STATIN Code(s): E78.5 - Hyperlipidemia, unspecified Qualifiers: Hyperlipidemia type: mixed hyperlipidemia Qualified Code(s): E78.2 - Mixed hyperlipidemia (10) Pre-diabetes: Code(s): R73.03 - Prediabetes (11) Low vitamin D level: Comment: November 2023 vitamin-D level within normal limits without supplementation. No need to supplement. UPDATE LABS Code(s): R79.89 - Other specified abnormal findings of blood chemistry (12) Obesity (BMI 30-39.9): Code(s): E66.9 - Obesity, unspecified (13) Hepatic steatosis: Code(s): K76.0 - Fatty (change of) liver, not elsewhere classified (14) Normocytic anemia: Comment: Labs from November of 2023 within normal limits without supplementation. Code(s): D64.9 - Anemia, unspecified (15) History of colonoscopy: Onset Date: ~2019 Code(s): Z98.890 - Other specified postprocedural states (16) History of mammogram: Onset Date: ~11/2024 Code(s): Z92.89 - Personal history of other medical treatment (17) Immunization counseling: Comment: Declined all vaccines Code(s): Z71.85 - Encounter for immunization safety counseling Plan . Orders: Orders XR DEXA axial skeleton Today Z13.820 - Encounter for screening for osteoporosis, Z78.0 - Asymptomatic menopausal state PT Evaluation and Treatment Today M20.10 - Hallux valgus (acquired), unspecified foot, M25.572 - Pain in left ankle and joints of left foot, M76.60 - Achilles tendinitis, unspecified leg, M77.32 - Calcaneal spur, left foot, M77.52 - Other enthesopathy of left foot and ankle, M79.605 - Pain in left leg, M79.672 - Pain in left foot, S92.352A - Displaced fracture of fifth metatarsal bone, left foot, initial encounter for closed fracture Lipid Panel Today D64.9 - Anemia, unspecified, E66.9 - Obesity, unspecified, E78.2 - Mixed hyperlipidemia, I10 - Essential (primary) hypertension, K76.0 - Fatty (change of) liver, not elsewhere classified, R73.03 - Prediabetes, R79.89 - Other specified abnormal findings of blood chemistry, Z13.820 - Encounter for screening for osteoporosis Complete Blood Count no Diff Today D64.9 - Anemia, unspecified, E66.9 - Obesity, unspecified, E78.2 - Mixed hyperlipidemia, I10 - Essential (primary) hypertension, K76.0 - Fatty (change of) liver, not elsewhere classified, R73.03 - Prediabetes, R79.89 - Other specified abnormal findings of blood chemistry, Z13.820 - Encounter for screening for osteoporosis Comprehensive Met. Panel Today D64.9 - Anemia, unspecified, E66.9 - Obesity, unspecified, E78.2 - Mixed hyperlipidemia, I10 - Essential (primary) hypertension, K76.0 - Fatty (change of) liver, not elsewhere classified, R73.03 - Prediabetes, R79.89 - Other specified abnormal findings of blood chemistry, Z13.820 - Encounter for screening for osteoporosis AMB Vision Screening Today Z00.00 - Encounter for general adult medical examination without abnormal findings AMB Hemoglobin A1c Today Z00.00 - Encounter for general adult medical examination without abnormal findings XR chest 2V Today R06.2 - Wheezing Microalbumin, Random (w Creat) Today D64.9 - Anemia, unspecified, E66.9 - Obesity, unspecified, E78.2 - Mixed hyperlipidemia, I10 - Essential (primary) hypertension, K76.0 - Fatty (change of) liver, not elsewhere classified, R73.03 - Prediabetes, R79.89 - Other specified abnormal findings of blood chemistry, Z13.820 - Encounter for screening for osteoporosis Vitamin B12 and Folate Today D64.9 - Anemia, unspecified, E66.9 - Obesity, unspecified, E78.2 - Mixed hyperlipidemia, I10 - Essential (primary) hypertension, K76.0 - Fatty (change of) liver, not elsewhere classified, R73.03 - Prediabetes, R79.89 - Other specified abnormal findings of blood chemistry, Z13.820 - Encounter for screening for osteoporosis Vitamin D 25-OH Total Today D64.9 - Anemia, unspecified, E66.9 - Obesity, unspecified, E78.2 - Mixed hyperlipidemia, I10 - Essential (primary) hypertension, K76.0 - Fatty (change of) liver, not elsewhere classified, R73.03 - Prediabetes, R79.89 - Other specified abnormal findings of blood chemistry, Z13.820 - Encounter for screening for osteoporosis TSH reflex Free T4 Today D64.9 - Anemia, unspecified, E66.9 - Obesity, unspecified, E78.2 - Mixed hyperlipidemia, I10 - Essential (primary) hypertension, K76.0 - Fatty (change of) liver, not elsewhere classified, R73.03 - Prediabetes, R79.89 - Other specified abnormal findings of blood chemistry, Z13.820 - Encounter for screening for osteoporosis Medications: New doxylamine succinate (Unisom (doxylamine)) 25 mg PO BEDTIME PRN 30 tabs 0RF sleep Refilled amlodipine 2.5 mg PO DAILY 90 tabs 1RF propranolol ER 60 mg PO BEDTIME 90 caps 1RF cyclosporine 0.05% (Restasis) 1 drp ophthalmic (eye) Q12H 60 ea 4RF 30 days melatonin 6 mg (2 x 3 mg) PO BEDTIME PRN 180 tabs 2RF for insomnia omeprazole 20 mg PO DAILY PRN 90 caps 2RF acid reflux Patient Instructions: The Strawberry Sleepiness Scale The Strawberry Sleepiness Scale is widely used in the field of sleep medicine as a subjective measure of a patient's sleepiness. The test is a list of eight situations in which you rate your tendency to become sleepy on a scale of 0, no chance of dozing, to 3, high chance of dozing. When you finish the test, add up the values of your responses. Your total score is based on a scale of 0 to 24. The scale estimates whether you are experiencing excessive sleepiness that possibly requires medical attention. How Sleepy Are You? How likely are you to doze off or fall asleep in the following situations? You should rate your chances of dozing off, not just feeling tired. Even if you have not done some of these things recently try to determine how they would have affected you. For each situation, decide whether or not you would have: ? No chance of dozing =0 ? Slight chance of dozing =1 ? Moderate chance of dozing =2 ? High chance of dozing =3 Write down the number corresponding to your choice in the right hand column. Total your score below. Situation Chance of Dozing Sitting and reading [] Watching TV [] Sitting inactive in a public place (e.g., a theater or a meeting) [] As a passenger in a car for an hour without a break [] Lying down to rest in the afternoon when circumstances permit [] Sitting and talking to someone [] Sitting quietly after a lunch without alcohol [] In a car, while stopped for a few minutes in traffic [] Total Score = [] Analyze Your Score Interpretation: 0-7:It is unlikely that you are abnormally sleepy. 8-9:You have an average amount of daytime sleepiness. 10-15:You may be excessively sleepy depending on the situation. You may want to consider seeking medical attention. 16-24:You are excessively sleepy and should consider seeking medical attention. Reference: Erick ISIDRO. A new method for measuring daytime sleepiness: The Strawberry Sleepiness Scale. Sleep 1991; 14(6):540-5. Quality Reporting (2019) Adult ([facility] 138/2//69) Smoking risk assessment performed?: Yes Patient Tobacco Use Status: Never used Tobacco Depression screening performed: Yes Screen Results: Yes Negative screen Recommended changes: weight reduction and physical activity Systolic BP not done?: No Diastolic BP not done?: No BMI screening not done: No BMI High - Follow Up: Yes High-plan (life style ) Sexual Activity Screening ([facility] 153) Sexually active?: No Immunizations ([facility] 147, 117) Annual Influenza Vaccine: No Flu Vaccine not done: patient reason Measles Antibody Test: No Mumps Antibody Test: No Rubella Antibody Test: No Varicella Antibody Test: No Anti Hepatitis A IgG Antigen test: No Anti Hepatitis B Virus Surface Ab test: No Fall Risk Screening ([facility] 139) Last assessed Fall Risk: 09/21/25 Fall risk assessment: No Falls in past year Dementia Assessment (CMS 149) Cognitive assessment recorded: Yes (6 CIT 0/28) Assessment of cognition with standardized tool: Yes Depression/Bipolar (159/160/161/177) PHQ-9: Total score: 0 Suicide risk assessment performed: Yes Psychotherapy: No Ophthalmol:Cataracts Visual Acuity (133) Visual acuity exam performed: Yes (see below ) Coding Level of Care Code Medicare Subsequent (G0439) Est Pt Level 4 (83939) Diagnoses Encounter for subsequent annual wellness visit (AWV) in Medicare patient Z00.00 Screening for osteoporosis Z13.820 Menopause Z78.0 Displaced fracture of fifth metatarsal bone, left foot, initial encounter for closed fracture S92.352A 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 Other enthesopathy of left foot and ankle M77.52 Wheezing R06.2 Primary hypertension I10 Hypertension type: primary hypertension Mixed hyperlipidemia E78.2 Hyperlipidemia type: mixed hyperlipidemia Pre-diabetes R73.03 Low vitamin D level R79.89 Obesity (BMI 30-39.9) E66.9 Hepatic steatosis K76.0 Normocytic anemia D64.9 History of colonoscopy Z98.890 History of mammogram Z92.89 Immunization counseling Z71.85 CPT Codes Advance Care Planning - Time spent: 1-15 minutes, not on file ([id number]) Vision Screening - Vision Screenin - Vision Screening ([id number]) EKG - CPT: [id number], Complete ([id number]) Additional Codes PHQ-9 - 56135 - PHQ-9 Billing: Yes ([id number]) Advance Care Planning Advance Care Planning discussion: Exists, not on file Date of discussion: 09/21/25 Who was present: self granddtr Forms completed: Health Care Proxy, MOLST and Living will Time spent: 1-15 minutes, not on file Actual minutes spent: 5
[2025-09-21 08:26] VITALS: BP 134/84; PULSE 81; RESP 14; TEMP 36.4; O2SAT 96
== END 2025-09-21 09:00 | disposition home or self-care (01) ==
LOC: HO.HMCFM 08:10
PROVIDERS: PCP Nurse Practitioner Family; Visit Provider Nurse Practitioner Family
DX: Z00.00 Encounter for general adult medical examination without abnormal findings (principal); I10 Essential (primary) hypertension; R73.03 Prediabetes; E78.2 Mixed hyperlipidemia; K76.0 Fatty (change of) liver, not elsewhere classified; M77.52 Other enthesopathy of left foot and ankle; Z86.2 Personal history of diseases of the blood and blood-forming organs and certain disorders involving the immune mechanism

== ENCOUNTER → 2025-09-21 08:10 | Outpatient (BNVA) | payer MEDICARE, SELFPAY | PROVIDERS: PCP Nurse Practitioner Family; Visit Provider Nurse Practitioner Family | DX: Z00.00 Encounter for general adult medical examination without abnormal findings (principal); Z13.820 Encounter for screening for osteoporosis; Z71.85 Encounter for immunization safety counseling; S92.352A Displaced fracture of fifth metatarsal bone, left foot, initial encounter for closed fracture; M76.60 Achilles tendinitis, unspecified leg; M77.52 Other enthesopathy of left foot and ankle; R06.2 Wheezing; I10 Essential (primary) hypertension; E78.2 Mixed hyperlipidemia; R73.03 Prediabetes; R79.89 Other specified abnormal findings of blood chemistry; E66.9 Obesity, unspecified; K76.0 Fatty (change of) liver, not elsewhere classified; D64.9 Anemia, unspecified; Z78.0 Asymptomatic menopausal state; Z98.890 Other specified postprocedural states; Z92.89 Personal history of other medical treatment | CPT/HCPCS: 83036; 96127; 99212; G0404 ==